=== PATIENT | female | born 1950 | race Caucasian/White ===

== ENCOUNTER 2016-12-03 06:55 | Day surgery (SDC) | payer OTHER ==
[2016-12-01 13:36] VITALS: BMI 46.3
[2016-12-03] MEDS ORDERED: ROPIVACAINE HCL 0.5% 30ML VIAL ONE (07:21)
[2016-12-03] MEDS ORDERED: MIDAZOLAM HCL 2 MG/2 ML SINGLE DOSE VIAL ONE ×3 (07:23→09:08)
--- NOTE | 2016-12-03 08:24 | HP ---
Satellite [facility] - Chief Complaint Chief Complaint: right shoulder pain - Past Medical History Allergies/Adverse Reactions: Allergies Allergy/AdvReac Type Severity Reaction Status Date / Time Cephalosporins Allergy Verified 12/01/16 13:36 clindamycin Allergy Verified 12/01/16 13:36 lithium Allergy Verified 12/01/16 13:36 Penicillins Allergy Verified 12/01/16 13:36 Sulfa (Sulfonamide Allergy Verified 12/01/16 13:36 Antibiotics) SEAFOOD Allergy Uncoded 12/01/16 13:36 - Current Medications Current Medications: Home Medications Medication Instructions Recorded Amlodipine Besylate 5 mg PO DAILY 09/28/15 Clonazepam 1 mg PO TID 09/28/15 Docusate Sodium [Colace -] 400 mg PO HS 09/28/15 Duloxetine HCl [Cymbalta] 120 mg PO DAILY 09/28/15 Multivitamins [Tab-A-Vit -] 1 tab PO DAILY 09/28/15 Naproxen [Naprosyn -] 550 mg PO BID 09/28/15 Olanzapine [Zyprexa] 10 mg PO HS 09/28/15 Omeprazole [Prilosec] 40 mg PO DAILY 09/28/15 Pravastatin Sodium [Pravachol (Nf)] 20 mg PO DAILY 09/28/15 Sennosides [Senna] 4 tab PO BID 09/28/15 Solifenacin Succinate [Vesicare] 10 mg PO DAILY 09/28/15 Diphenhydramine [Benadryl -] 50 mg PO HS PRN 12/01/16 Gluc Tucker/Chondro Tucker A/Vit C/Mn 1 each PO BID 12/01/16 [Glucosamine-Chondroitin Caps] Oxycodone HCl/Acetaminophen 1 each PO Q4H PRN 12/01/16 [Percocet 10-325 mg Tablet] Satellite Physical Exam - Physical Examination Vital Signs: Vital Signs Period Temp Pulse Resp BP Sys/Lane Pulse Ox Last 24 Hr 98.5 F 85 18 123/75 96 General Appearance: Well Nourished, Well Developed, Alert & Oriented x3 ENT: Clear Lung: Normal air movement Heart: Regular rate & rhythm Extremities: Other (right shoulder- + ttp, decr rom, + neer, + klein, + empty can, nvi MRI + high grade partial rct) Neurological: Intact, Alert, Oriented Satellite Impression/Plan - Impression/Plan Impression: right shoulder rct Operative Procedure: right shoulder arthroscopy with SAD, possible RCR Date to be Performed: 12/03/16
[2016-12-03] MEDS ORDERED: KETOROLAC TROMETHAMINE 30 MG/1 ML VIAL ONE (09:08)
[2016-12-03] MEDS ORDERED: DEXAMETHASONE SOD PHOSPHATE 4 MG/1 ML VIAL ONE (09:08)
[2016-12-03] MEDS ORDERED: PROPOFOL 20 ML ONE (09:08)
[2016-12-03] MEDS ORDERED: ROCURONIUM BROMIDE 50 MG/5 ML VIAL ONE (09:08)
[2016-12-03] MEDS ORDERED: oxyCODONE HCL 5 MG TABLET PO PRN (09:09)
[2016-12-03] MEDS ORDERED: ONDANSETRON 4 MG/2 ML VIAL IVPUSH PRN (09:09)
[2016-12-03] MEDS ORDERED: LACTATED RINGERS SOLUTION 1,000 ML IV SCH (09:15)
[2016-12-03] MEDS ORDERED: VANCOMYCIN 1,000 MG VIAL (RESTRICTED TO ID ONLY) IVPB ONE (09:24)
[2016-12-03] MEDS ORDERED: VANCOMYCIN 1,000 MG VIAL (RESTRICTED TO ID ONLY) ONE (09:30)
--- NOTE | 2016-12-03 10:37 | OP ---
Operative Note - Note: Operative Date: 12/03/16 ([facility]) Pre-Operative Diagnosis: right shoulder rct Operation: right shoulder arthroscopy RCR, SAD, extensive debridement of bone and soft tissue Implants: 2 swivelocks Post-Operative Diagnosis: Same as Pre-op Surgeon: Kirt Ruano Digital Media Producer: [place] Anesthesiologist/OCEANOGRAPHER ASSISTANT: Dominick Hess Jr. Anesthesia: General, Local Specimens Removed: shavings Estimated Blood Loss (mls): 5 Operative Report Dictated: Yes
[2016-12-03 13:30] VITALS: TEMP 97.8
[2016-12-03 15:02] VITALS: BP 132/72; PULSE 96
--- NOTE | 2016-12-03 19:24 | OP ---
DATE OF OPERATION: 12/03/2016 PREOPERATIVE DIAGNOSIS: Right rotator cuff tear. POSTOPERATIVE DIAGNOSIS: Right rotator cuff tear. PROCEDURE: Arthroscopy right shoulder with subacromial debridement, bone and soft tissue, and arthroscopic rotator cuff repair. SURGICAL ATTENDING: Kirt Ruano M.D. HOUSEHOLD APPLIANCES SERVICE TECHNICIAN: Gillian Arana ANESTHESIA: Regional and general. CLOSURE: Two fiber tapes and 2 swivel locks for rotator cuff, 3-0 nylon for skin. ESTIMATED BLOOD LOSS: Negligible. COMPLICATIONS: None. CONDITION: To recovery room in stable condition. DESCRIPTION OF PROCEDURE: Patient was taken to the operating room on December 03, 2016. Regional anesthesia followed by general anesthesia was administered by the anesthesiologist. IV vancomycin was administered prophylactically prior to the case. This patient is allergic to multiple antibiotics. The patient was placed in the beach chair position with all prominences well padded. The right shoulder area was prepped and draped in the usual sterile fashion. First a diagnostic arthroscopy of the glenohumeral joint was performed. The posterior portal was made 2 fingerbreadths below the acromion, first with a number 15 blade followed by a blunt trocar. The exam revealed intact glenoid and humeral head articular cartilage, intact labrum, circumferentially intact biceps and biceps anchor. Intact subscapularis to its insertion. No loose bodies in the axillary pouch. Looking superiorly, the rotator cuff was found to have a crescent tear that was almost completely full thickness. This area was marked. The fluid was drained, the trocar was removed. The posterior trocar was redirected in the subacromial space and accessory lateral ports were made with blunt trocar. A bursectomy was performed using device and a shaver a ball on the undersurface of the acromion until it was debrided up to an appropriate level. The coracoacromial ligament was identified and detached once the anterior acromion was visualized and dropped inferiorly, was further debrided. Looking inferiorly to rotator cuff, the marked spot with the suture was found. This showed that the rotator cuff was torn over 95% of its thickness. This area was debrided, completing the tear. was debrided using the shaver and the Arthrocare. Two horizontal mattress sutures were placed on the rotator cuff using a 5-0 tape suture and using Scorpion suture passer. They were individually placed through 2 swivel lock anchors on the more lateral aspect of the greater tuberosity, reducing the rotator cuff to the greater tuberosity, giving an excellent repair. Sutures were cut flush with the bone. Range of motion revealed good stability of the repair and good space in the subacromial region. The fluid was drained. Trocars were closed using 3-0 nylon. Sterile pressure dressing followed by shoulder immobilizer was applied. The patient was awoken from anesthesia and transferred to the recovery room in stable condition. No complications. Estimated blood loss negligible. Maddison [id number]
--- NOTE | 2016-12-04 13:49 | PATH ---
Surgical Pathology Report Patient Name: YENNY AMOR [facility]. Rec. #: [id number] /Age/Gender: 1950 (Age: 66) / F Account: [id number] Location: [facility] SURGICAL Taken: 12/03/2016 Received: 12/03/2016 Reported: 12/04/2016 Physicians: Kirt Ruano M.D. Specimen(s) Received SHAVINGS RIGHT SHOULDER Clinical History Right rotator cuff tear, impingement syndrome right shoulder Final Diagnosis SOFT TISSUE, RIGHT SHOULDER, ARTHROSCOPIC SHAVINGS: SYNOVIUM AND FIBROCARTILAGE WITH MYXOHYALINE DEGENERATION. FRAGMENTS OF UNREMARKABLE BONE AND SKELETAL MUSCLE. Electronically Signed Luc Koenig M.D. Gross Description Received in formalin, labeled "right shoulder shavings" is a 4.5 x 3.3 x 0.3 cm aggregate of guzman-yellow soft tissue fragments. A quality control representative portion is submitted in one cassette. 12/03/201612/03/2016
== END 2016-12-03 14:35 | disposition home or self-care (01) ==
LOC: JASU-SURG 06:55
PROVIDERS: ATTEND Orthopaedic Surgery
PROC: 0RBJ4ZZ Excision of Right Shoulder Joint, Percutaneous Endoscopic Approach (ICD-10-PCS; 2016-12-03)
PROC: 0RNJ4ZZ Release Right Shoulder Joint, Percutaneous Endoscopic Approach (ICD-10-PCS; principal; 2016-12-03 08:45)
PROC: 0LM14ZZ Reattachment of Right Shoulder Tendon, Percutaneous Endoscopic Approach (ICD-10-PCS; 2016-12-03 08:45)
DX: M75.101 Unspecified rotator cuff tear or rupture of right shoulder, not specified as traumatic (principal)
CPT/HCPCS: 88304-TC; 94760

== ENCOUNTER 2017-07-20 19:19 | Emergency (ER) | payer OTHER ==
[2017-07-20 19:35] VITALS: BP 144/89; PULSE 85; TEMP 98.2; BMI 46.1
[2017-07-20] MEDS ORDERED: KETOROLAC TROMETHAMINE 60 MG/2 ML VIAL ONE (20:20)
[2017-07-20] MEDS ORDERED: KETOROLAC TROMETHAMINE 60 MG/2 ML VIAL IM ONE (20:20)
--- NOTE | 2017-07-20 20:20 | PDOC ---
History of Present Illness - History of Present Illness Initial Comments: 07/20/17 20:24 The patient is a 67 year old female, with a significant past medical history of hypertension, hyperlipidemia, bipolar disorder, urinary incontinence, osteoarthritis, and spinal stenosis who presents to the emergency department brought in by ambulance from home with increased back pain for 1 day. The patient states she thinks she turned the wrong way in her sleep. The patient also reports left buttock pain. She denies pain, numbness or tingling to her lower extremities. She denies trauma. She reports taking oxycodone and naproxen earlier today without relief of pain. She denies chest pain, shortness of breath, headache and dizziness. She denies fever, chills, nausea, vomit, diarrhea and constipation. She denies dysuria, frequency, urgency and hematuria. Allergies: see nursing notes Past surgical history: right RCR (Nov 2016), right bunion, Social history: Pt denies toxic habits PCP - Dr. Jai Chopra <Alexandra Nava - Last Filed: 07/20/17 20:42> <Chloe Pires - Last Filed: 07/20/17 22:43> - General Chief Complaint: Back Pain Stated Complaint: BACK PAIN Time Seen by Provider: 07/20/17 19:24 Past History <Alexandra Nava - Last Filed: 07/20/17 20:42> - Past Medical History Anemia: Yes Asthma: No Cancer: No Cardiac Disorders: No CVA: No COPD: No CHF: No Dementia: No Diabetes: No GI Disorders: Yes (reflux) Disorders: Yes (kidney stones;urge incontinence) HTN: Yes Hypercholesterolemia: Yes Liver Disease: No Seizures: No Thyroid Disease: No - Surgical History Abdominal Surgery: Yes (hernia) Appendectomy: Yes Cardiac Surgery: No Lung Surgery: No Neurologic Surgery: No Orthopedic Surgery: Yes (arthroscopy knee - bilat x 2) - Suicide/Smoking/Psychosocial Hx Smoking History: Never smoked Have you smoked in the past 12 months: No Information on smoking cessation initiated: No Hx Alcohol Use: No Drug/Substance Use Hx: No Substance Use Type: None <Chloe Pires - Last Filed: 07/20/17 22:43> - Past Medical History Allergies/Adverse Reactions: Allergies Allergy/AdvReac Type Severity Reaction Status Date / Time Cephalosporins Allergy Verified 07/20/17 19:32 clindamycin Allergy Verified 07/20/17 19:32 lithium Allergy Verified 07/20/17 19:32 Penicillins Allergy Verified 07/20/17 19:32 Sulfa (Sulfonamide Allergy Verified 07/20/17 19:32 Antibiotics) SEAFOOD Allergy Uncoded 07/20/17 19:32 Home Medications: Ambulatory Orders Amlodipine Besylate 5 mg PO DAILY 09/28/15 Clonazepam 1 mg PO TID 09/28/15 Docusate Sodium [Colace -] 400 mg PO HS 09/28/15 Duloxetine HCl [Cymbalta] 120 mg PO DAILY 09/28/15 Multivitamins [Multivit ([facility] Formulary)] 1 tab PO DAILY 09/28/15 Naproxen [Naprosyn -] 550 mg PO BID 09/28/15 Olanzapine [Zyprexa] 10 mg PO HS 09/28/15 Omeprazole [Prilosec] 40 mg PO DAILY 09/28/15 Pravastatin Sodium [Pravachol -] 20 mg PO DAILY 09/28/15 Sennosides [Senna -] 4 tab PO BID 09/28/15 Solifenacin Succinate [Vesicare] 10 mg PO DAILY 09/28/15 Gluc Tucker/Chondro Tucker A/Vit C/Mn [Glucosamine-Chondroitin Caps] 1 each PO BID 12/01 Oxycodone HCl/Acetaminophen [Percocet 10-325 mg Tablet] 1 each PO Q4H PRN #50 tablet MDD 6 12/03/16 Review of Systems - Review of Systems Able to Perform ROS?: Yes Comments:: 07/20/17 20:24 CONSTITUTIONAL: Absent: fever, no chills, no fatigue EYES: Absent: visual changes ENT: Absent: ear pain, no sore throat CARDIOVASCULAR: Absent: chest pain, no palpitations RESPIRATORY: Absent: cough, no SOB GI: Absent: abdominal pain, no nausea, no vomiting, no constipation, no diarrhea GENITOURINARY: Absent: dysuria, no frequency, no hematuria MUSCULOSKELETAL: (+) myalgia, right lower back pain, and left buttock pain. Absent: no arthralgia , SKIN: Absent: rash NEURO: Absent: headache <Alexandra Nava - Last Filed: 07/20/17 20:42> *Physical Exam - Vital Signs Last Vital Signs Temp Pulse Resp BP Pulse Ox 98.2 F 85 14 144/89 99 07/20/17 19:32 07/20/17 19:32 07/20/17 19:32 07/20/17 19:32 07/20/17 20:12 - Physical Exam Comments: 07/20/17 20:25 GENERAL: (+) obese. Well-appearing, No apparent distress. HEENT: Normocephalic, atraumatic. PERRL, EOM intact. CARDIOVASCULAR: Normal S1, S2. Regular rate and rhythm. No bruits. PULMONARY: Clear to auscultation bilaterally. ABDOMEN: Protuberant. Soft, non-distended, non-tender. EXTREMITIES: (+) bilateral pedal edema. Normal ROM in all four extremities. No gross deformities. MUSCULOSKELETAL: (+) pain and tenderness to the right of L5S1 SKIN: Warm, dry. No rash NEUROLOGICAL: No focal neurological deficits. <Alexandra Nava - Last Filed: 07/20/17 20:42> - Vital Signs Last Vital Signs Temp Pulse Resp BP Pulse Ox 98.2 F 85 14 144/89 99 07/20/17 19:32 07/20/17 19:32 07/20/17 19:32 07/20/17 19:32 07/20/17 20:12 <Chloe Pires - Last Filed: 07/20/17 22:43> ED Treatment Course - Medications Given in the ED: ED Medications Discontinued Medications Generic Name Dose Route Start Last Admin Trade Name Freq PRN Reason Stop Dose Admin Oxycodone/Acetaminophen 1 combo 07/20/17 19:52 07/20/17 20:18 Percocet 5/325 - PO 07/20/17 19:53 1 combo ONCE ONE Administration <Alexandra Nava - Last Filed: 07/20/17 20:42> - Medications Given in the ED: ED Medications Discontinued Medications Generic Name Dose Route Start Last Admin Trade Name Freq PRN Reason Stop Dose Admin Oxycodone/Acetaminophen 1 combo 07/20/17 19:52 07/20/17 20:18 Percocet 5/325 - PO 07/20/17 19:53 1 combo ONCE ONE Administration <Chloe Pires - Last Filed: 07/20/17 22:43> Medical Decision Making - Medical Decision Making 07/20/17 20:52 67 yo female BBIA from home for back pain -no recent trauma -denies any new fecal or urinary incontinence(has h/o stress incontinence only) ,no saddle anesthesia or new extremity weakness,no numbness She has PMH of spinal stenosis and arthritis ,is follwed by Dr Ruano (ortho) who gives her "injections" 07/20/17 20:53 07/20/17 22:41 pt is now ambulating and feels better -plan pt will follow up with her physician this week <Chloe Pires - Last Filed: 07/20/17 22:43> *DC/Admit/Observation/Transfer - Attestations Scribe Attestion: 07/20/17 20:27 Documentation prepared by Alexandra Nava, acting as medical imaging technician for Chloe Pires MD <Alexandra Nava - Last Filed: 07/20/17 20:42> <Chloe Pires - Last Filed: 07/20/17 22:43> Diagnosis at time of Disposition: Back pain Qualifiers: Back pain location: low back pain Chronicity: chronic Back pain laterality: right Sciatica presence: with sciatica Sciatica laterality: sciatica of right side Qualified Code(s): M54.41 - Lumbago with sciatica, right side; M54.41 - Lumbago with sciatica, right side; G89.29 - Other chronic pain; G89.29 - Other chronic pain - Discharge Dispostion Disposition: HOME Condition at time of disposition: Stable - Referrals Referrals: Jai Chopra MD [Primary Care Provider] - - Patient Instructions Printed Discharge Instructions: DI for Low Back Pain Additional Instructions: please follow up with your orthopedist support assistant your medications at your pharmacy
[2017-07-20] MEDS ORDERED: diazePAM 5 MG TABLET PO ONE (20:21)
[2017-07-20] MEDS ORDERED: diazePAM 5 MG TABLET ONE (20:21)
== END 2017-07-20 23:17 | disposition home or self-care (01) ==
LOC: JER 19:19
PROC: 3E0233Z Introduction of Anti-inflammatory into Muscle, Percutaneous Approach (ICD-10-PCS; principal; 2017-07-20)
DX: G89.29 Other chronic pain (principal); M54.41 Lumbago with sciatica, right side; I10 Essential (primary) hypertension; D64.9 Anemia, unspecified; K21.9 Gastro-esophageal reflux disease without esophagitis
CPT/HCPCS: 99283-25

== ENCOUNTER 2018-03-01 08:41 | Day surgery (SDC) | payer OTHER ==
[2018-02-25 13:03] VITALS: BMI 47.9
[2018-03-01] MEDS ORDERED: LIDOCAINE HCL 2% JELLY 10 ML CARTRIDGE ONE (09:51)
[2018-03-01] MEDS ORDERED: MIDAZOLAM HCL 2 MG/2 ML SINGLE DOSE VIAL ONE (10:55)
[2018-03-01] MEDS ORDERED: PROPOFOL 20 ML ONE (10:55)
[2018-03-01] MEDS ORDERED: LIDOCAINE HCL 2% JELLY 10 ML CARTRIDGE TP ONE (12:01)
[2018-03-01] MEDS ORDERED: DEXAMETHASONE SOD PHOSPHATE 4 MG/1 ML VIAL ONE (12:08)
--- NOTE | 2018-03-01 12:32 | OP ---
Operative Note - Note: Operative Date: 03/01/18 Pre-Operative Diagnosis: urethral stricture Operation: cystoscopy/urethral dilation Findings: moderate urethral stricture Post-Operative Diagnosis: Same as Pre-op Surgeon: Leeroy Padilla Anesthesia: General
[2018-03-01] MEDS ORDERED: ONDANSETRON 4 MG/2 ML VIAL IVPUSH PRN (12:34)
[2018-03-01] MEDS ORDERED: ACETAMINOPHEN 325 MG TABLET (FP) PO PRN (12:34)
[2018-03-01] MEDS ORDERED: LACTATED RINGERS SOLUTION 1,000 ML IV SCH (12:45)
[2018-03-01 15:41] VITALS: BP 138/78; PULSE 80; TEMP 97.8
--- NOTE | 2018-03-01 19:53 | OP ---
DATE OF OPERATION: 03/01/2018 PREOPERATIVE DIAGNOSIS: Urethral stricture. POSTOPERATIVE DIAGNOSIS: Urethral stricture. PROCEDURE: Cystoscopy and urethral dilation. ATTENDING: Andrew Padilla M.D. ANESTHESIA: General. DESCRIPTION OF PROCEDURE: The patient was brought in the operating room, placed in supine position on operating table. General anesthesia and preoperative antibiotics were administered. The patient was then placed in the dorsal lithotomy position. Dilation was performed to 26 Swedish. The stricture dilated well. At this point, a rigid cystoscope was utilized, and cystoscopy was performed. No evidence of neoplasm or stones was noted within the bladder. 1 to 2 plus bladder trabeculation was noted. The patient tolerated the procedure very well. No Diaz was left in place. ANDREW AUGUSTINE M.D. 1 [id number]
== END 2018-03-01 15:20 | disposition home or self-care (01) ==
LOC: JASU-SURG 08:41
PROVIDERS: ATTEND Urology
PROC: 0T7D8ZZ Dilation of Urethra, Via Natural or Artificial Opening Endoscopic (ICD-10-PCS; principal; 2018-03-01 10:00)
DX: N35.9 Urethral stricture, unspecified (principal)
CPT/HCPCS: 94760

== ENCOUNTER 2018-03-17 08:38 | Emergency (ER) | payer OTHER ==
[2018-03-17 08:53] VITALS: BP 160/98; PULSE 76; TEMP 97.4; BMI 47.7
--- NOTE | 2018-03-17 09:51 | PDOC ---
*Physical Exam - Vital Signs Last Vital Signs Temp Pulse Resp BP Pulse Ox 97.4 F L 76 16 160/98 99 03/17/18 08:49 03/17/18 08:49 03/17/18 08:49 03/17/18 08:49 03/17/18 08:49 Medical Decision Making - Medical Decision Making 03/17/18 09:51 Pt seen by Midlevel Provider under my direct supervision Pt interviewed and examined Ancillary studies reviewed I agree with plan as outlined by Midlevel Provider *DC/Admit/Observation/Transfer Diagnosis at time of Disposition: Knee buckling, Fall, Head injury - Discharge Dispostion Disposition: HOME Condition at time of disposition: Good - Prescriptions Prescriptions: Tramadol HCl 50 mg PO TID #20 tablet MDD 4 - Referrals Referrals: Jai Chopra MD [Primary Care Provider] - Call tomorrow - Patient Instructions Printed Discharge Instructions: How To Perform RICE (Rest, Ice, Compress, Elevate), How to Prevent Falls, DI for Closed Head Injury Additional Instructions: Discharge instructions: -The cat scan of your head and face show no acute broken bones or bleeding -You have osteoarthritis in your knees -Please apply ice to your knees, wrist and face to help with swelling and pain -A prescription for pain medication has been sent to your pharmacy; it may cause drowsiness -Please follow up with your doctor within 1 week -return to the ER with any worsening or concerning symptoms - Post Discharge Activity
--- NOTE | 2018-03-17 09:57 | PDOC ---
History of Present Illness - General Chief Complaint: Injury Stated Complaint: SLIP, FALL Time Seen by Provider: 03/17/18 09:47 History Source: Patient Exam Limitations: No Limitations - History of Present Illness Initial Comments: CHIEF COMPLAINT: 67 y/o afebrile female with PMH HTN, HLD, osteoarthritis of b/ l knees, incontinence here after fall at home with facial trauma. HISTORY OF PRESENT ILLNESS: the patient states she was incontinent last night and was changing the sheet on her bed when her knees gave out on her. She fell to the floor, first hitting her knees and then hitting her face on the floor. She states this has happened before. she currently has a headache, nose pain, left wrist pain and b/l knee pain. She denies CP, palpitations or dizziness prior to the fall. She denies LOC, neck pain, n/v/d, numbness/tingling in extremities. Vital signs on arrival are within normal limits. REVIEW OF SYSTEMS: GENERAL/CONSTITUTIONAL: no fever/chills. No weakness. No weight change. HEAD, EYES, EARS, NOSE AND THROAT: +nose pain. No change in vision. No ear pain or discharge. No sore throat. CARDIOVASCULAR: No chest pain or shortness of breath. RESPIRATORY: No cough, wheezing, or hemoptysis. GASTROINTESTINAL: No abd pain, nausea, vomiting, diarrhea. GENITOURINARY: No dysuria, frequency, or change in urination. MUSCULOSKELETAL: +b/l knee pain. No neck or back pain. SKIN: No rash or easy bruising. NEUROLOGIC: +headache. No vertigo, loss of consciousness, or loss of sensation. PHYSICAL EXAM: GENERAL: The patient is awake, alert, and fully oriented, in no acute distress. HEAD: No hematomas to head. NECK: No midline cervical spine TTP or step offs. ENT: PERRLA. Edema and ecchymosis to nose with TTP of bridge of nose. Dried blood in left nare without septal hematoma. Multiple abrasions to nose and forehead. No pain with EOMs. No raccoon eyes. LUNGS: Clear to auscultation bilaterally. Normal excursion. No respiratory distress or use of accessory muscles. CV: RRR, S1/S2, no MRG. Cap refill < 2 sec. ABDOMEN: Soft, non-distended, non-tender even to deep palpation, no hepatomegaly or splenomegaly, no masses. EXTREMITIES: Bruising and TTP of b/l knees. Pain extension of left wrist without snuffbox TTP, swelling or erythema NEUROLOGICAL: Normal speech, normal gait. CN II-XII grossly intact. PSYCH: Normal mood, normal affect. SKIN: Warm, dry, normal turgor, no rashes or lesions noted. Past History - Past Medical History Allergies/Adverse Reactions: Allergies Allergy/AdvReac Type Severity Reaction Status Date / Time Cephalosporins Allergy Verified 03/17/18 08:47 clindamycin Allergy Verified 03/17/18 08:47 lithium Allergy Verified 03/17/18 08:47 Penicillins Allergy Swelling Verified 03/17/18 08:47 Sulfa (Sulfonamide Allergy Verified 03/17/18 08:47 Antibiotics) SEAFOOD Allergy Uncoded 03/17/18 08:47 Home Medications: Ambulatory Orders Amlodipine Besylate 5 mg PO DAILY 09/28/15 Docusate Sodium [Colace -] 400 mg PO HS 09/28/15 Duloxetine HCl [Cymbalta] 120 mg PO DAILY 09/28/15 Multivitamins [Multivit ([facility] Formulary)] 1 tab PO DAILY 09/28/15 Olanzapine [Zyprexa] 10 mg PO HS 09/28/15 Omeprazole [Prilosec] 40 mg PO DAILY 09/28/15 Pravastatin Sodium [Pravachol -] 20 mg PO DAILY 09/28/15 Sennosides [Senna -] 4 tab PO BID 09/28/15 Gluc Tucker/Chondro Tucker A/Vit C/Mn [Glucosamine-Chondroitin Caps] 1 each PO BID 12/01 Clonazepam [Klonopin] 1 mg PO QID 03/01/18 Anemia: Yes Asthma: No Cancer: No Cardiac Disorders: No CVA: No COPD: No CHF: No Dementia: No Diabetes: No GI Disorders: Yes (reflux) Disorders: Yes (kidney stones;urge incontinence) HTN: Yes Hypercholesterolemia: Yes Liver Disease: No Psychiatric Problems: (bipolar) Seizures: No Thyroid Disease: No - Surgical History Abdominal Surgery: Yes (hernia) Appendectomy: Yes Cardiac Surgery: No Lung Surgery: No Neurologic Surgery: No Orthopedic Surgery: Yes (arthroscopy knee - bilat x 2) - Suicide/Smoking/Psychosocial Hx Smoking History: Never smoked Have you smoked in the past 12 months: No Hx Alcohol Use: No Drug/Substance Use Hx: No Substance Use Type: None *Physical Exam - Vital Signs Last Vital Signs Temp Pulse Resp BP Pulse Ox 97.4 F L 76 16 160/98 99 03/17/18 08:49 03/17/18 08:49 03/17/18 08:49 03/17/18 08:49 03/17/18 08:49 Medical Decision Making - Medical Decision Making A/P: 67 y/o female with fall after both knees gave out on her. The patient admits she is bone on bone in both knees and this has happened before. Plan is as follows: 1. Head CT 2. Facial bones CT 3. Xray b/l knees 4. Xray left wrist 5. PO percocet Head CT/Facial bones CT IMPRESSION: Likely slightly depressed chronic nasal tip fracture without overlying soft issue swelling. No gross acute fracture is identified. Both orbits appear intact. No periorbital soft tissue swelling is identified. Both eye globes are intact. No evidence of focal intracranial lesion or hemorrhage seen. Xray b/l knees IMPRESSION: osteoarthritis Xray left wrist IMPRESSION: No acute pathology. Gave the patient all of her results. Suggested ice to her face, knees and wrist. Will send rx for tramadol. Suggested f/u with her doctor and return to the ER with any worsening or concerning symptoms. The patient verbalizes understanding of all instructions, has no further questions and is awaiting discharge. *DC/Admit/Observation/Transfer Diagnosis at time of Disposition: Knee buckling Qualifiers: Laterality: unspecified laterality Qualified Code(s): M25.369 - Other instability, unspecified knee Fall Qualifiers: Encounter type: initial encounter Qualified Code(s): W19.XXXA - Unspecified fall, initial encounter Head injury Qualifiers: Encounter type: initial encounter Qualified Code(s): S09.90XA - Unspecified injury of head, initial encounter - Discharge Dispostion Disposition: HOME Condition at time of disposition: Good - Referrals Referrals: Jai Chopra MD [Primary Care Provider] - Call tomorrow - Patient Instructions Printed Discharge Instructions: DI for Closed Head Injury, How to Prevent Falls , How To Perform RICE (Rest, Ice, Compress, Elevate) Additional Instructions: Discharge instructions: -The cat scan of your head and face show no acute broken bones or bleeding -You have osteoarthritis in your knees -Please apply ice to your knees, wrist and face to help with swelling and pain -A prescription for pain medication has been sent to your pharmacy; it may cause drowsiness -Please follow up with your doctor within 1 week -return to the ER with any worsening or concerning symptoms - Post Discharge Activity
== END 2018-03-17 15:10 | disposition home or self-care (01) ==
LOC: JER 08:38
DX: M25.369 Other instability, unspecified knee (principal); S09.90XA Unspecified injury of head, initial encounter; W18.39XA Other fall on same level, initial encounter; Y93.89 Activity, other specified; Y92.003 Bedroom of unspecified non-institutional (private) residence as the place of occurrence of the external cause; F31.9 Bipolar disorder, unspecified; K21.9 Gastro-esophageal reflux disease without esophagitis; I10 Essential (primary) hypertension; E78.00 Pure hypercholesterolemia, unspecified
CPT/HCPCS: 70450-TC; 70486-TC; 73110-TC-LR-FY; 73130-TC-LR-FY; 73560-TC-LT-FY; 73560-TC-RT-FY; 99282-25

== ENCOUNTER 2018-04-04 12:08 | Observation (INO) | payer OTHER ==
[2018-04-04] MEDS ORDERED: SODIUM CHLORIDE 0.9% 1000 ML INFUS.BAG IV ONE (12:39)
[2018-04-04] MEDS ORDERED: MECLIZINE HCL 25 MG TABLET (FP) PO ONE (12:39)
--- NOTE | 2018-04-04 12:39 | PDOC ---
History of Present Illness - General History Source: Patient Exam Limitations: No Limitations - History of Present Illness Initial Comments: 04/04/18 13:42 The patient is a 67 year old female with a significant past medical history of osteoarthritis, hypertension, hyperlipidemia, bipolar disorder, IBS, spinal stenosis, vertigo, and urinary incontinence who presents to the emergency department for evaluation of lightheadedness. The patient reports feeling dizzy (room spinning) sitting up in bed after waking up this morning. She states she went to the bathroom afterwards and her dizziness returned requiring her to sit back down. She notes her dizziness was exacerbated after turning towards the right while in bed. The patient reports a history of dizziness, but notes it was not as severe as today which prompted her to visit the emergency department for further evaluation. The patient reports an associated symptom of moderate frontal headache.She states she felt fine and at baseline yesterday. Of note, the patient reports she fell on her knees and hit her head 2.5 weeks ago. The patient denies chest pain, shortness of breath, fever, chills, nausea, vomiting, diarrhea, and constipation. Allergies: Cephalosporins, clindamycin, lithium, penicillins, sulfonamide antibiotics, seafood Social History: No reported alcohol, cigarette, or drug use. Surgical History: Arthroscopy knee bilaterally, abdominal hernia repair, appendectomy. <Neil Lyles - Last Filed: 04/04/18 14:06> <Yong Reinoso - Last Filed: 04/04/18 15:33> - General Chief Complaint: Lightheaded Stated Complaint: DIZZINESS AND HEADHACHE Time Seen by Provider: 04/04/18 12:30 Past History <Neil Lyles - Last Filed: 04/04/18 14:06> - Past Medical History Anemia: Yes Asthma: No Cancer: No Cardiac Disorders: No CVA: No COPD: No CHF: No Dementia: No Diabetes: No GI Disorders: Yes (reflux) Disorders: Yes (kidney stones;urge incontinence) HTN: Yes Hypercholesterolemia: Yes Liver Disease: No Psychiatric Problems: (bipolar) Seizures: No Thyroid Disease: No - Surgical History Abdominal Surgery: Yes (hernia) Appendectomy: Yes Cardiac Surgery: No Lung Surgery: No Neurologic Surgery: No Orthopedic Surgery: Yes (arthroscopy knee - bilat x 2) - Suicide/Smoking/Psychosocial Hx Smoking History: Never smoked Have you smoked in the past 12 months: No Hx Alcohol Use: No Drug/Substance Use Hx: No Substance Use Type: None <Yong Reinoso - Last Filed: 04/04/18 15:33> - Past Medical History Allergies/Adverse Reactions: Allergies Allergy/AdvReac Type Severity Reaction Status Date / Time Cephalosporins Allergy Verified 03/17/18 08:47 clindamycin Allergy Verified 03/17/18 08:47 lithium Allergy Verified 03/17/18 08:47 Penicillins Allergy Swelling Verified 03/17/18 08:47 Sulfa (Sulfonamide Allergy Verified 03/17/18 08:47 Antibiotics) SEAFOOD Allergy Uncoded 03/17/18 08:47 Home Medications: Ambulatory Orders Amlodipine Besylate 5 mg PO DAILY 09/28/15 Docusate Sodium [Colace -] 400 mg PO HS 09/28/15 Duloxetine HCl [Cymbalta] 120 mg PO DAILY 09/28/15 Multivitamins [Multivit ([facility] Formulary)] 1 tab PO DAILY 09/28/15 Olanzapine [Zyprexa] 12.5 mg PO HS 09/28/15 Omeprazole [Prilosec] 40 mg PO DAILY 09/28/15 Pravastatin Sodium [Pravachol -] 20 mg PO HS 09/28/15 Sennosides [Senna -] 4 tab PO BID 09/28/15 Gluc Tucker/Chondro Tucker A/Vit C/Mn [Glucosamine-Chondroitin Caps] 1 each PO BID 12/01 Clonazepam [Klonopin] 1 mg PO QID 03/01/18 Chrom Renan/Brindal Hess [Garcinia Cambogia Tablet] 1 each PO TID 04/04/18 Mirabegron [Myrbetriq] 50 mg PO DAILY 04/04/18 Naproxen Sodium 550 mg PO BID 04/04/18 Review of Systems - Review of Systems Able to Perform ROS?: Yes Comments:: A complete review of 10 out of 10 review of systems is taken and is negative apart from what is previously mentioned below and in the HPI. <Neil Lyles - Last Filed: 04/04/18 14:06> *Physical Exam - Vital Signs Last Vital Signs Temp Pulse Resp BP Pulse Ox 98 F 89 20 162/76 94 L 04/04/18 12:10 04/04/18 12:10 04/04/18 12:10 04/04/18 12:10 04/04/18 12:10 - Physical Exam Comments: Vitals: Triage Vital signs reviewed General Appearance: no acute distress, well nourished well developed, Head: Atraumatic, normocephalic Eyes: Pupils equal reactive round, extraocular movement intact Neck: Supple Chest Wall: Nontender Cardiac: Regular rate and rhythm, no murmurs, no rubs, no gallops, Lungs: Clear to auscultation bilateral, good air movement bilaterally, Abdomen: Soft, nondistended, nontender to palpation Extremities: Full range of motion to all extremities, no cyanosis, clubbing, or edema Skin: Warm and dry, no rashes or lesions, no petechiae Neuro: (+)jennifer-hallpike. AOX3; Cranial Nerves 2-12 grossly c intact, Strength intact to all extremities, Sensation intact to all extremities. Psych: normal mood, normal affect. <Neil Lyles - Last Filed: 04/04/18 14:06> Heart Score/ECG Review - ECG Impressions Comment:: 04/04/18 15:31 EKG performed at 1302. Demonstrated sinus rhythm no ST elevations or T-wave inversions. Normal 156. QRS 84. QTC 454. No evidence of WPW, Brugada, prolonged PT Interpreted by me. <Yong Reinoso - Last Filed: 04/04/18 15:33> ED Treatment Course - LABORATORY CBC & Chemistry Diagram: 04/04/18 14:40 04/04/18 14:40 <Yong Reinoso - Last Filed: 04/04/18 15:33> Medical Decision Making - Medical Decision Making The patient is a 67 year old female with a significant past medical history of osteoarthritis, hypertension, hyperlipidemia, bipolar disorder, IBS, spinal stenosis, vertigo, and urinary incontinence who presents to the emergency department for evaluation of lightheadedness. Plan: ECG Labs Medications Head CT <Neil Lyles - Last Filed: 04/04/18 14:06> - Medical Decision Making Patient with 1 day history of vertigo starting this morning. Symptoms are worse when standing turning to the right patient unable to ambulate unassisted secondary symptomatology Positive Jennifer-Hallpike on neuro examination Given age and risk factors we'll obtain head CT check labs EKG treated with meclizine and Ativan and reassessed Reevaluation 3:20 PM. Patient still unable to walk with steady gait despite medications. Given that patient is a safe discharge home we'll observe overnight for continued fluids meclizine and Ativan. Neurology to be consult and in morning if no improvement in symptomatology to consider additional imaging possibly MRI to rule out central pathology <Yong Reinoso - Last Filed: 04/04/18 15:33> *DC/Admit/Observation/Transfer - Attestations Scribe Attestion: Documentation prepared by Neil Lyles, acting as medical billing specialist for Yong Reinoso MD. <Neil Lyles - Last Filed: 04/04/18 14:06> - Discharge Dispostion Decision to Admit order: Yes <Yong Reinoso - Last Filed: 04/04/18 15:33> Diagnosis at time of Disposition: Vertigo
[2018-04-04] MEDS ORDERED: LORazepam 2 MG/ML SDV VIAL ONE ×2 (13:02→17:15)
[2018-04-04] MEDS ORDERED: MECLIZINE HCL 25 MG TABLET (FP) ONE (13:02)
[2018-04-04 14:50] LABS: BASO % 0.1 % (0-2.0); HEMATOCRIT 43.1 % (32.4-45.2); LYMPH % 18.9 % (8-40); MCH 27.8 pg (25.7-33.7); MCHC 32.4 g/dl (32.0-36.0); MEAN CELL VOLUME 85.7 fl (80-96); MEAN PLT VOLUME 8.6 fl (7.5-11.1); MONO % 8.6 % (3.8-10.2); NEUT % 68.4 % (42.8-82.8); PLATELET COUNT 278 K/MM3 (134-434); RBC 5.03 M/mm3 (3.60-5.2); RDW 15.7 % (11.6-15.6); WHITE BLOOD COUNT 9.2 K/mm3 (4.0-10.0)
[2018-04-04 15:12] LABS: ANION GAP 6 (8-16); BILIRUBIN,TOTAL 0.4 mg/dL (0.2-1.0); BLOOD UREA NITROGEN 16 mg/dL (7-18); CALCIUM 8.9 mg/dL (8.5-10.1); CHLORIDE 106 mmol/L (98-107); CO2 31 mmol/L (21-32); CREATININE 0.6 mg/dL (0.55-1.02); GLUCOSE,RANDOM 113 mg/dL (74-106); POTASSIUM 3.9 mmol/L (3.5-5.1); SGOT/AST 18 U/L (15-37); SGPT/ALT 27 U/L (12-78); SODIUM 143 mmol/L (136-145); TOT PROT 7.1 g/dl (6.4-8.2)
[2018-04-04 15:14] LABS: ALBUMIN 3.8 g/dl (3.4-5.0); ALK PHOS 122 U/L (45-117)
--- NOTE | 2018-04-04 16:52 | PN ---
Teaching Attending Note Name of Resident: Clari Huitron ATTENDING PHYSICIAN STATEMENT I saw and evaluated the patient. I reviewed the resident's note and discussed the case with the resident. I agree with the resident's findings and plan as documented. SUBJECTIVE: Patient is a 67 y/o F with PMHx of OA, HTN, HLD, bipolar disorder, IBS, spinal stenosis, urinary incontinence and BPPV, who presents to the ED c/o episodes of vertigo that started this AM. Patient felt that the whole room is spinning. No fever or chiil, no shortness of breath. OBJECTIVE: Vital Signs Temperature 98 F 04/04/18 12:10 Pulse Rate 89 04/04/18 12:10 Respiratory Rate 20 04/04/18 12:10 Blood Pressure 162/76 04/04/18 12:10 O2 Sat by Pulse Oximetry (%) 94 L 04/04/18 12:10 CBCD WBC 9.2 K/mm3 (4.0-10.0) 04/04/18 14:40 RBC 5.03 M/mm3 (3.60-5.2) 04/04/18 14:40 Hgb 14.0 GM/dL (10.7-15.3) 04/04/18 14:40 Hct 43.1 % (32.4-45.2) 04/04/18 14:40 MCV 85.7 fl (80-96) 04/04/18 14:40 MCHC 32.4 g/dl (32.0-36.0) 04/04/18 14:40 RDW 15.7 % (11.6-15.6) H 04/04/18 14:40 Plt Count 278 K/MM3 (134-434) 04/04/18 14:40 MPV 8.6 fl (7.5-11.1) 04/04/18 14:40 CMP Sodium 143 mmol/L (136-145) 04/04/18 14:40 Potassium 3.9 mmol/L (3.5-5.1) 04/04/18 14:40 Chloride 106 mmol/L (98-107) 04/04/18 14:40 Carbon Dioxide 31 mmol/L (21-32) 04/04/18 14:40 Anion Gap 6 (8-16) L 04/04/18 14:40 BUN 16 mg/dL (7-18) 04/04/18 14:40 Creatinine 0.6 mg/dL (0.55-1.02) 04/04/18 14:40 Creat Clearance w eGFR > 60 (>60) 04/04/18 14:40 Random Glucose 113 mg/dL (74-106) H 04/04/18 14:40 Calcium 8.9 mg/dL (8.5-10.1) 04/04/18 14:40 Total Bilirubin 0.4 mg/dL (0.2-1.0) 04/04/18 14:40 AST 18 U/L (15-37) 04/04/18 14:40 ALT 27 U/L (12-78) 04/04/18 14:40 Alkaline Phosphatase 122 U/L (45-117) H 04/04/18 14:40 Total Protein 7.1 g/dl (6.4-8.2) 04/04/18 14:40 Albumin 3.8 g/dl (3.4-5.0) 04/04/18 14:40 CARDIAC ENZYMES Troponin I < 0.02 ng/ml (0.00-0.05) 04/04/18 14:40 Home Medications Medication Instructions Recorded Amlodipine Besylate 5 mg PO DAILY 09/28/15 Docusate Sodium [Colace -] 400 mg PO HS 09/28/15 Duloxetine HCl [Cymbalta] 120 mg PO DAILY 09/28/15 Multivitamins [Multivit ([facility] 1 tab PO DAILY 09/28/15 Formulary)] Olanzapine [Zyprexa] 12.5 mg PO HS 09/28/15 Omeprazole [Prilosec] 40 mg PO DAILY 09/28/15 Pravastatin Sodium [Pravachol -] 20 mg PO HS 09/28/15 Sennosides [Senna -] 4 tab PO BID 09/28/15 Gluc Tucker/Chondro Tucker A/Vit C/Mn 1 each PO BID 12/01/16 [Glucosamine-Chondroitin Caps] Clonazepam [Klonopin] 1 mg PO QID 03/01/18 Chrom Renan/Brindal Hess [Garcinia 1 each PO TID 04/04/18 Cambogia Tablet] Mirabegron [Myrbetriq] 50 mg PO DAILY 04/04/18 Naproxen Sodium 550 mg PO BID 04/04/18 PE: feels weak and dizzy when stands up. rest of PE as per resident's note Head CT without con: no hemorrhage, mass effect or hydrocephalus EKG: NSR, vent rate 80bpm, [place] 156ms, QTc 454ms. no ST or T wave changes ASSESSMENT/PLAN: Patient is a 67 y/o Female with PMHx OA, HTN, HLD, bipolar disorder, IBS, spinal stenosis, urinary incontinence who presents to the ED c/o having vertigo that started this AM. #Vertigo likely due to BPPV; discussed with dr Wheat; No need for mRI, continue Meclizine for now #HTN- uncontrolled continue amlodipine 5mg PO qd #HLD continue pravachol 20mg PO HS #bipolar disorder continue home meds #IBS with constipation on Senna and colace that she takes at home will continue #urinary incontinence continue home medication #hx of OA hold glucosamine-chrondroitin and naproxen DVT: hep 5000 SQ TID
[2018-04-04] MEDS ORDERED: MECLIZINE HCL 25 MG TABLET (FP) PO PRN (17:28)
--- NOTE | 2018-04-04 17:37 | HP ---
CHIEF COMPLAINT: vertigo PCP: Dr. Chopra HISTORY OF PRESENT ILLNESS: 67 y/o F with PMH OA, HTN, HLD, bipolar disorder, IBS, spinal stenosis, urinary incontinence and BPPV, who presents to the ED c/o episodes of vertigo that started this AM. As per pt, this AM when she woke up, as soon as she sat up, she felt as if the "room was spinning." The episode lasted for 20-30 seconds. Pt lay back down to alleviate her sx, went back to sleep, and sat up a second time in bed, only to have the same sx. The episode subsequently improved and she was able to reach the ED for further evaluation with difficulty. Her sx are worsened with sudden head movements, sitting up, and are a/w frontal head pressure. She denies fever, chills, recent infections, SOB, chest pain, arrythmia, tinnitus, visual changes, or changes in urinary or bowel function. Of note, pt was dx with BPPV "many years ago." Her last episode was ~1 yr ago, when she was seen by an ENT specialist. At the time, her episodes were shorter in duration (5-10 seconds), thus when this instance was longer, she became worried. Pt also suffered a mechanical fall 2.5 weeks ago, where she was seen in the [facility] ED. Pt was with head trauma, but her head CT was (-) for any bleed. She saw Dr. Chopra a few days after her ED visit, and was recommended to see neuro, Dr. Wheat. Pt was rx caffeine pills and was to have a brain MRI as she also had increased clear nasal discharge, as well as watery eyes that were concerning for CSF leak. 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 Smoking: quit 15 yrs ago, had smoked 1 ppd for 20 yrs previously Alcohol: socially in past, does not drink now d/t "medication side effects" Drugs: marijuana as a teenager Family History: father- alzheimer's dz (also in uncle) - from [place] s/ p prostate surgery, mother - when pt was 15 from brain aneurysm, HTN Allergies Cephalosporins Allergy (Verified 03/17/18 08:47) clindamycin Allergy (Verified 03/17/18 08:47) lithium Allergy (Verified 03/17/18 08:47) Penicillins Allergy (Verified 03/17/18 08:47) Swelling RASH,RESP DIFFICULTY Sulfa (Sulfonamide Antibiotics) Allergy (Verified 03/17/18 08:47) SEAFOOD Allergy (Uncoded 03/17/18 08:47) HOME MEDICATIONS: Home Medications Medication Instructions Recorded Amlodipine Besylate 5 mg PO DAILY 09/28/15 Docusate Sodium [Colace -] 400 mg PO HS 09/28/15 Duloxetine HCl [Cymbalta] 120 mg PO DAILY 09/28/15 Multivitamins [Multivit ([facility] 1 tab PO DAILY 09/28/15 Formulary)] Olanzapine [Zyprexa] 12.5 mg PO HS 09/28/15 Omeprazole [Prilosec] 40 mg PO DAILY 09/28/15 Pravastatin Sodium [Pravachol -] 20 mg PO HS 09/28/15 Sennosides [Senna -] 4 tab PO BID 09/28/15 Gluc Tucker/Chondro Tucker A/Vit C/Mn 1 each PO BID 12/01/16 [Glucosamine-Chondroitin Caps] Clonazepam [Klonopin] 1 mg PO QID 03/01/18 Chrom Renan/Brindal Hess [Garcinia 1 each PO TID 04/04/18 Cambogia Tablet] Mirabegron [Myrbetriq] 50 mg PO DAILY 04/04/18 Naproxen Sodium 550 mg PO BID 04/04/18 Pt last took her medications yesterday* Pharmacy closed, will have to call in AM for med-rec REVIEW OF SYSTEMS CONSTITUTIONAL: Absent: fever, chills, diaphoresis, generalized weakness, malaise, loss of appetite, weight change HEENT: Absent: rhinorrhea, nasal congestion, throat pain, throat swelling, difficulty swallowing, mouth swelling, ear pain, eye pain, visual changes CARDIOVASCULAR: Absent: chest pain, syncope, palpitations, irregular heart rate, lightheadedness , peripheral edema RESPIRATORY: Absent: cough, shortness of breath, dyspnea with exertion, orthopnea, wheezing, stridor, hemoptysis GASTROINTESTINAL: Absent: abdominal pain, abdominal distension, nausea, vomiting, diarrhea, constipation, melena, hematochezia GENITOURINARY: Absent: dysuria, frequency, urgency, hesitancy, hematuria, flank pain, genital pain MUSCULOSKELETAL: Absent: myalgia, arthralgia, joint swelling, back pain, neck pain SKIN: Absent: rash, itching, pallor HEMATOLOGIC/IMMUNOLOGIC: Absent: easy bleeding, easy bruising, lymphadenopathy, frequent infections ENDOCRINE: Absent: unexplained weight gain, unexplained weight loss, heat intolerance, cold intolerance NEUROLOGIC: +dizziness, headache Absent:focal weakness or paresthesias, unsteady gait, seizure, mental status changes, bladder or bowel incontinence PSYCHIATRIC: Absent: anxiety, depression, suicidal or homicidal ideation, hallucinations. PHYSICAL EXAMINATION Vital Signs - 24 hr 04/04/18 12:10 Temperature 98 F Pulse Rate 89 Respiratory 20 Rate Blood Pressure 162/76 O2 Sat by Pulse 94 L Oximetry (%) GENERAL: Pleasant. Awake, alert, and fully oriented, in no acute distress. Appears comfortable HEAD: Normal with no signs of trauma. EYES: Pupils equal, round and reactive to light, extraocular movements intact, sclera anicteric, conjunctiva clear. EARS, NOSE, THROAT: Ears normal, nares patent, oropharynx clear without exudates. Moist mucous membranes. NECK: Normal range of motion, supple without lymphadenopathy LUNGS: distant breath sounds equal, clear to auscultation bilaterally. difficult to assess d/t body habitus HEART: Regular rate and rhythm, distant. normal S1 and S2 without murmur, rub or gallop. ABDOMEN: Soft, obese, nontender, not distended, normoactive bowel sounds, no guarding, no rebound, no masses MUSCULOSKELETAL: Normal range of motion at all joints. UPPER EXTREMITIES: 2+ radial pulses, warm, well-perfused. No cyanosis. No peripheral edema. LOWER EXTREMITIES: 2+ pt pulses, warm, well-perfused. No calf tenderness. trace pedal edema NEUROLOGICAL: Cranial nerves II-XII intact. 5/5 motor strength in upper and lower extremities. sensation and cerebellar fnc intact. no pronator drift. PSYCHIATRIC: Cooperative. SKIN: Warm, dry, normal turgor Laboratory Results - last 24 hr 04/04/18 04/04/18 14:40 14:40 WBC 9.2 RBC 5.03 Hgb 14.0 Hct 43.1 MCV 85.7 MCH 27.8 MCHC 32.4 RDW 15.7 H Plt Count 278 MPV 8.6 Absolute Neuts (auto) 6.3 Neutrophils % 68.4 Lymphocytes % 18.9 Monocytes % 8.6 Eosinophils % 4.0 Basophils % 0.1 Nucleated RBC % 0 Sodium 143 Potassium 3.9 Chloride 106 Carbon Dioxide 31 Anion Gap 6 L BUN 16 Creatinine 0.6 Creat Clearance w eGFR > 60 Random Glucose 113 H Calcium 8.9 Total Bilirubin 0.4 AST 18 ALT 27 Alkaline Phosphatase 122 H Troponin I < 0.02 Total Protein 7.1 Albumin 3.8 IMAGING 04/04/18: Head CT non con: no hemorrhage, mass effect or hydrocephalus TESTING 04/04/18: EKG: NSR, vent rate 80bpm, [place] 156ms, QTc 454ms. no ST or T wave changes ASSESSMENT/PLAN: 67 y/o F with PMH OA, HTN, HLD, bipolar disorder, IBS, spinal stenosis, urinary incontinence and BPPV, who presents to the ED c/o episodes of vertigo that started this AM. #Vertigo likely 2/2 BPPV -Pt with dx BPPV in past, more severe episode with longer duration -no hx recent illnesses, however may be 2/2 medications such as senna. -episodes worsened with sudden movement -received one dose meclizine 25mg x 1 in ED. Will continue with meclizine 25mg TID PRN -if continues and with ataxia, as per neuro may start valium 2.5mg HS -will hydrate with IVF -Neuro: Dr. Wheat; will decide if brain MRI needed -note: pt with metal plate in RLE, metal wiring in R shoulder* #HTN- uncontrolled -likely 2/2 discomfort -continue amlodipine 5mg PO qd #HLD -continue pravachol 20mg PO HS #bipolar disorder -continue zyprexa 12.5mg PO HS - hold for now until verified with pharmacy in AM -cymbalta 120mg PO HS -Klonopin 1mg PO QID-hold for now until verified with pharmacy in AM #IBS -continue colace 400mg PO HS -Hold senna 4 tab BID, as may have exacerbated vertigo -continue to follow lytes #urinary incontinence -continue myrbetriq 50mg PO qd #OA -hold glucosamine-chrondroitin for now -hold naproxen #F/E/N IV NS 100 cc/hr continue to follow lytes sodium controlled, cholesterol free diet #PPX DVT: hep 5000 SQ TID #Dispo monitoring on observation will need med -rec in AM when pharmacy is open Visit type - Emergency Visit Emergency Visit: Yes Care time: The patient presented to the Emergency Department on the above date and was hospitalized for further evaluation of their emergent condition. - New Patient This patient is new to me today: Yes Date on this admission: 04/04/18 - Critical Care Critical Care patient: No Hospitalist Screening - Colonoscopy Questionnaire Colonoscopy Questionnaire: Colonoscopy Questionnaire - Patient: 50 - 75 years old and never had a screening colonoscopy: Unknown History of colon or rectal polyps, or CA: Unknown History of IBD, Crohn's disease or UC: Unknown History of abdominal radiation therapy as a child: Unknown - Relative: 1 with colon or rectal CA, or polyps at age 60 or younger: Unknown Colon or rectal CA diagnosed at age 45 or younger: Unknown Multiple relatives with colon or rectal CA: Unknown - Outcome: Screening Result: Negative Screen
--- NOTE | 2018-04-04 17:41 | CON.NEURO ---
Consult Consult Specialty:: NEUROLOGY-JASON MOBLEY Reason for Consultation:: Vertigo - History of Present Illness History of Present Illness: Pt. has a hx of episodic vertigo x 2.5 years, last episode ocurred 1 month ago. 2.5 wks ago fell on her face, since had mid-forehead pain and minimal nasal congestion/discharge of clear fluid for which i saw her last week and placed her on oral caffeine for a possible CSF leak-this she says has improved, she has no headache. Today woke up and had 2 episodes of vertigo each lasting less than a minute acc. by ataxia of gait-still feels she has difficulty ambulating( I feel shaky). Denies all other neurologic symptoms. +hx. of pancreatitis with Depakote. - Alcohol/Substance Use Hx Alcohol Use: No - Smoking History Smoking history: Never smoked Have you smoked in the past 12 months: No Home Medications - Allergies Allergies/Adverse Reactions: Allergies Allergy/AdvReac Type Severity Reaction Status Date / Time Cephalosporins Allergy Verified 03/17/18 08:47 clindamycin Allergy Verified 03/17/18 08:47 lithium Allergy Verified 03/17/18 08:47 Penicillins Allergy Swelling Verified 03/17/18 08:47 Sulfa (Sulfonamide Allergy Verified 03/17/18 08:47 Antibiotics) SEAFOOD Allergy Uncoded 03/17/18 08:47 - Home Medications Home Medications: Ambulatory Orders Amlodipine Besylate 5 mg PO DAILY 09/28/15 Docusate Sodium [Colace -] 400 mg PO HS 09/28/15 Duloxetine HCl [Cymbalta] 120 mg PO DAILY 09/28/15 Multivitamins [Multivit ([facility] Formulary)] 1 tab PO DAILY 09/28/15 Olanzapine [Zyprexa] 12.5 mg PO HS 09/28/15 Omeprazole [Prilosec] 40 mg PO DAILY 09/28/15 Pravastatin Sodium [Pravachol -] 20 mg PO HS 09/28/15 Sennosides [Senna -] 4 tab PO BID 09/28/15 Gluc Tucker/Chondro Tucker A/Vit C/Mn [Glucosamine-Chondroitin Caps] 1 each PO BID 12/01 Clonazepam [Klonopin] 1 mg PO QID 03/01/18 Chrom Renan/Brindal Hess [Garcinia Cambogia Tablet] 1 each PO TID 04/04/18 Mirabegron [Myrbetriq] 50 mg PO DAILY 04/04/18 Naproxen Sodium 550 mg PO BID 04/04/18 Physical Exam-Neuro Vital Signs: Vital Signs Temperature 98 F 04/04/18 12:10 Pulse Rate 89 04/04/18 12:10 Respiratory Rate 20 04/04/18 12:10 Blood Pressure 162/76 04/04/18 12:10 O2 Sat by Pulse Oximetry (%) 94 L 04/04/18 12:10 Labs: CBC, BMP 04/04/18 14:40 04/04/18 14:40 - Neuro Exam DTR's: 1+ Left Bicep, 1+ Right Bicep, 1+ Left Tricep, 1+ Right Tricep, 1+ Left Brachioradialis, 1+ Right Brachioradialis, 1+ Left Achilles, 1+ Right Achilles Motor Strength: 5/5: Left Arm, Right Arm, Left Leg, Right Leg Gait: Other (Feels vertiginous when she attempts to stand. ) Imaging - Results Cat Scan: Report Reviewed (Hyperostosis frontalis interna. Mild microvascular ischemic changes.) Assessment/Plan Likely recurrence of benign positional vertigo. If pt. remains ataxic would admit for hydration and place on Valium 2.5mg hs, meclizine 25mg tid. Thank you, Margaret Wheat MD
[2018-04-04] MEDS ORDERED: SODIUM CHLORIDE 1,000 ML IV SCH (18:15)
[2018-04-04] MEDS ORDERED: DOCUSATE SODIUM 100 MG CAPSULE (FP) PO SCH (22:00)
[2018-04-05 02:39] VITALS: BMI 49.0
[2018-04-05] MEDS: MECLIZINE HCL 25 MG TABLET (FP) PO PRN ×2 (02:49→14:21)
[2018-04-05] MEDS: DULoxetine HCL 30 MG CAPSULE.DR (FP) PO SCH ×2 (02:53→10:28)
[2018-04-05] MEDS: HEPARIN NA (PORCINE) 5,000 UNITS/ML 1ML VIAL SQ SCH ×3 (02:53→14:22)
[2018-04-05] MEDS ORDERED: clonazePAM 0.5 MG TABLET PO ONE ×2 (03:10→14:54)
[2018-04-05] MEDS ORDERED: NAPROXEN 500 MG TABLET (FP) PO ONE ×2 (03:10→14:55)
[2018-04-05 07:00] LABS: HEMATOCRIT 38.1 % (32.4-45.2); HEMOGLOBIN 12.5 GM/dL (10.7-15.3); MCH 28.2 pg (25.7-33.7); MCHC 32.9 g/dl (32.0-36.0); MEAN CELL VOLUME 85.6 fl (80-96); MEAN PLT VOLUME 8.2 fl (7.5-11.1); PLATELET COUNT 237 K/MM3 (134-434); RBC 4.45 M/mm3 (3.60-5.2); WHITE BLOOD COUNT 8.7 K/mm3 (4.0-10.0)
[2018-04-05 07:46] LABS: ANION GAP 5 (8-16); BLOOD UREA NITROGEN 15 mg/dL (7-18); CALCIUM 8.4 mg/dL (8.5-10.1); CHLORIDE 108 mmol/L (98-107); CO2 30 mmol/L (21-32); CREATININE 0.6 mg/dL (0.55-1.02); GLUCOSE,RANDOM 109 mg/dL (74-106); PHOSPHOROUS 3.7 mg/dL (2.5-4.9); POTASSIUM 3.7 mmol/L (3.5-5.1); SODIUM 143 mmol/L (136-145)
[2018-04-05] MEDS ORDERED: amLODIPine BESYLATE 5 MG TABLET (FP) PO SCH (10:00)
[2018-04-05] MEDS ORDERED: PANTOPRAZOLE 20 MG TABLET (FP) PO SCH (10:00)
[2018-04-05 13:20] VITALS: BP 143/85; PULSE 92; TEMP 98.3
--- NOTE | 2018-04-05 17:27 | EKG ---
Test Reason : Blood Pressure : / mmHG Vent. Rate : 080 BPM Atrial Rate : 080 BPM P-R Int : 156 ms QRS Dur : 084 ms QT Int : 394 ms P-R-T Axes : 036 -02 031 degrees QTc Int : 454 ms NORMAL SINUS RHYTHM NORMAL ECG WHEN COMPARED WITH ECG OF 30-JAN-1998 13:09, T WAVE VARIATION Confirmed by RAULITO GOLDSTEIN MD ([id number]) on 04/05/2018 5:27:16 PM Referred By: Confirmed By:RAULITO GOLDSTEIN MD
[2018-04-05] MEDS ORDERED: clonazePAM 0.5 MG TABLET PO SCH (18:00)
--- NOTE | 2018-04-05 21:10 | DS ---
Physical Exam: SUBJECTIVE: Patient seen and examined at bedside. No acute events overnight; with mild episodes of lightheadedness. Today, improved. ambulated with PT to solarium on floor. Denies LARES, tinnitus, visual changes, or focal neurological deficits. OBJECTIVE: Vital Signs Period Temp Pulse Resp BP Sys/Lane Pulse Ox Last 24 Hr 98.1 F-98.3 F 75-92 18-18 136-143/79-85 95-95 PHYSICAL EXAM GENERAL: The patient is pleasant, calm. awake, alert, and fully oriented, in no acute distress. HEAD: Normal with no signs of trauma. EYES: PERRL, extraocular movements intact, sclera anicteric, conjunctiva clear. ENT: Ears normal, nares patent, oropharynx clear without exudates, moist mucous membranes. NECK: Trachea midline, full range of motion, supple. LUNGS: Breath sounds equal, clear to auscultation bilaterally, no wheezes, no crackles, no accessory muscle use. distant d/t body habitus HEART: +distant S1, S2 without murmur, rub or gallop. ABDOMEN: Soft, obese, nontender, nondistended, normoactive bowel sounds, no guarding EXTREMITIES: 2+ pt pulses, warm, well-perfused, no edema. NEUROLOGICAL: Cranial nerves II through XII grossly intact. PSYCH: Normal mood, normal affect. SKIN: Warm, dry, normal turgor LABS Laboratory Results - last 24 hr 04/05/18 04/05/18 06:00 06:00 WBC 8.7 RBC 4.45 Hgb 12.5 Hct 38.1 MCV 85.6 MCH 28.2 MCHC 32.9 RDW 16.0 H Plt Count 237 MPV 8.2 Sodium 143 Potassium 3.7 Chloride 108 H Carbon Dioxide 30 Anion Gap 5 L BUN 15 Creatinine 0.6 Creat Clearance w eGFR > 60 Random Glucose 109 H Calcium 8.4 L Phosphorus 3.7 Magnesium 2.0 IMAGING 04/04/18: Head CT non con: no hemorrhage, mass effect or hydrocephalus TESTING 04/04/18: EKG: NSR, vent rate 80bpm, LA 156ms, QTc 454ms. no ST or T wave changes HOSPITAL COURSE: Date of Admission:04/04/18 Date of Discharge: 04/05/18 Admit diagnosis: Vertigo likely 2/2 BPPV 67 y/o F with PMH OA, HTN, HLD, bipolar disorder, IBS, spinal stenosis, urinary incontinence and BPPV, who presented to the ED c/o episodes of vertigo that started on AM of admission. As per pt, in AM when she woke up, as soon as she sat up, she felt as if the "room was spinning." The episode lasted for 20-30 seconds. Pt lay back down to alleviate her sx, went back to sleep, and sat up a second time in bed, only to have the same sx. The episode subsequently improved and she was able to reach the ED for further evaluation with difficulty. Her sx were worsened with sudden head movements, sitting up, and were a/w frontal head pressure. She denied fever, chills, recent infections, SOB, chest pain, arrythmia, tinnitus, visual changes, or changes in urinary or bowel function. Of note, pt was dx with BPPV "many years ago." Her last episode was ~1 yr ago, when she was seen by an ENT specialist. At the time, her episodes were shorter in duration (5-10 seconds), thus when this instance was longer, she became worried. Pt also suffered a mechanical fall 2.5 weeks ago, where she was seen in the [facility] ED. Pt was with head trauma, but her head CT was (-) for any bleed. She saw Dr. Chopra a few days after her ED visit, and was recommended to see neuro, Dr. Wheat. Pt was rx caffeine pills and was to have a brain MRI as she also had increased clear nasal discharge, as well as watery eyes that were concerning for CSF leak. Pt for observation for vertigo likely 2/2 BPPV. Pt underwent Head CT non-con which was negative for any hemorrhage, mass effect, or hydrocephalus. She was maintained on IV NS 100 cc/hr, and was seen by neuro. As per neuro, she was placed on meclizine 25mg PO TID PRN and no further acute intervention (such as MRI brain) was recommended. She will f/u with neuro in 1 week, as well as with her PCP. Case was also d/w social worker health services, who will have walker sent to her home tomorrow (04/06) to aid with ambulation. Pt counseled on weight loss and expresses interest in bariatric surgery. She will continue her home meds, however meds such as senna, glucosamine-chondroitin caps, garcinia cambogia luna tablets recommended to hold until discuss further with PCP - as this meds may lead to vertigo. D/w patient at length. Questions answered, expressed verbal understanding. Minutes to complete discharge: 46 Discharge Summary Reason For Visit: VERTIGO Condition: Improved - Instructions Diet, Activity, Other Instructions: You were in the hospital for vertigo. You were seen by a neurologist, Dr. Wheat and started on meclizine. You had a CT scan of your head which did not show a bleed. Your visit You were seen by the medicine and neurology teams. Medications You may continue your home medications, however we recommend discontinuing the following: -Senna 4x/day -Glucosamine/chondroitin caps -Garcinia cambogia tablets- Luan It is possible that these medications may have contributed to your vertigo. Please discuss with your primary care doctor before continuing. You may continue your other home medications. For your vertigo, you may take meclizine 25mg three times a day only as needed. Care -a walker will be delivered to your home tomorrow, as we discussed. -please be careful when walking, and avoid falls Follow-up -Please follow up with the following doctors: -Dr. Wheat, your neurologist - 1 week to discuss your hospital visit. -Dr. Chopra, your primary care doctor - 1 week If you develop chest pain, or shortness of breath, please go to the hospital. Referrals: Jai Chopra MD [Staff Physician] - 1 Week Doc Wheat MD [Staff Physician] - 1 Week Disposition: HOME - Home Medications Comprehensive Discharge Medication List: Ambulatory Orders Amlodipine Besylate 5 mg PO DAILY 09/28/15 Docusate Sodium [Colace -] 400 mg PO HS 09/28/15 Duloxetine HCl [Cymbalta] 120 mg PO DAILY 09/28/15 Multivitamins [Multivit ([facility] Formulary)] 1 tab PO DAILY 09/28/15 Olanzapine [Zyprexa] 15 mg PO HS 09/28/15 Omeprazole [Prilosec] 40 mg PO DAILY 09/28/15 Pravastatin Sodium [Pravachol -] 20 mg PO HS 09/28/15 Clonazepam [Klonopin] 1 mg PO QID 03/01/18 Mirabegron [Myrbetriq] 50 mg PO DAILY 04/04/18 Naproxen Sodium 550 mg PO BID 04/04/18 Meclizine HCl [Antivert -] 25 mg PO TID PRN #21 tablet 04/05/18 Olanzapine [Zyprexa -] 15 mg PO HS tablet 04/05/18 This patient is new to me today: No Emergency Visit: No Critical Care patient: No - Discharge Referral Referred to [facility] Med [facility].C.: No
--- NOTE | 2018-04-05 21:39 | PN ---
Teaching Attending Note Name of Resident: Clari Huitron ATTENDING PHYSICIAN STATEMENT I saw and evaluated the patient. I reviewed the resident's note and discussed the case with the resident. I agree with the resident's findings and plan as documented. SUBJECTIVE: Patient is comfortable with no acute distress, no nausea or vomiting. Feeling better. Vital Signs Temperature 98.3 F 04/05/18 13:18 Pulse Rate 92 H 04/05/18 13:18 Respiratory Rate 18 04/05/18 13:18 Blood Pressure 143/85 04/05/18 13:18 O2 Sat by Pulse Oximetry (%) 95 04/05/18 09:00 OBJECTIVE: CBCD WBC 8.7 K/mm3 (4.0-10.0) 04/05/18 06:00 RBC 4.45 M/mm3 (3.60-5.2) 04/05/18 06:00 Hgb 12.5 GM/dL (10.7-15.3) 04/05/18 06:00 Hct 38.1 % (32.4-45.2) 04/05/18 06:00 MCV 85.6 fl (80-96) 04/05/18 06:00 MCHC 32.9 g/dl (32.0-36.0) 04/05/18 06:00 RDW 16.0 % (11.6-15.6) H 04/05/18 06:00 Plt Count 237 K/MM3 (134-434) 04/05/18 06:00 MPV 8.2 fl (7.5-11.1) 04/05/18 06:00 CMP Sodium 143 mmol/L (136-145) 04/05/18 06:00 Potassium 3.7 mmol/L (3.5-5.1) 04/05/18 06:00 Chloride 108 mmol/L (98-107) H 04/05/18 06:00 Carbon Dioxide 30 mmol/L (21-32) 04/05/18 06:00 Anion Gap 5 (8-16) L 04/05/18 06:00 BUN 15 mg/dL (7-18) 04/05/18 06:00 Creatinine 0.6 mg/dL (0.55-1.02) 04/05/18 06:00 Creat Clearance w eGFR > 60 (>60) 04/05/18 06:00 Random Glucose 109 mg/dL (74-106) H 04/05/18 06:00 Calcium 8.4 mg/dL (8.5-10.1) L 04/05/18 06:00 Total Bilirubin 0.4 mg/dL (0.2-1.0) 04/04/18 14:40 AST 18 U/L (15-37) 04/04/18 14:40 ALT 27 U/L (12-78) 04/04/18 14:40 Alkaline Phosphatase 122 U/L (45-117) H 04/04/18 14:40 Total Protein 7.1 g/dl (6.4-8.2) 04/04/18 14:40 Albumin 3.8 g/dl (3.4-5.0) 04/04/18 14:40 CARDIAC ENZYMES Troponin I < 0.02 ng/ml (0.00-0.05) 04/04/18 14:40 Home Medications Medication Instructions Recorded Amlodipine Besylate 5 mg PO DAILY 09/28/15 Docusate Sodium [Colace -] 400 mg PO HS 09/28/15 Duloxetine HCl [Cymbalta] 120 mg PO DAILY 09/28/15 Multivitamins [Multivit ([facility] 1 tab PO DAILY 09/28/15 Formulary)] Olanzapine [Zyprexa] 15 mg PO HS 09/28/15 Omeprazole [Prilosec] 40 mg PO DAILY 09/28/15 Pravastatin Sodium [Pravachol -] 20 mg PO HS 09/28/15 Clonazepam [Klonopin] 1 mg PO QID 03/01/18 Mirabegron [Myrbetriq] 50 mg PO DAILY 04/04/18 Naproxen Sodium 550 mg PO BID 04/04/18 Meclizine HCl [Antivert -] 25 mg PO TID PRN #21 tablet 04/05/18 Olanzapine [Zyprexa -] 15 mg PO HS tablet 04/05/18 PE: NO Vertigo noted rest of PE per resident's note Head CT without con: no hemorrhage, mass effect or hydrocephalus EKG: NSR, vent rate 80bpm, [place] 156ms, QTc 454ms. no ST or T wave changes ASSESSMENT/PLAN: Patient is a 67 y/o Female with PMHx OA, HTN, HLD, bipolar disorder, IBS, spinal stenosis, urinary incontinence who presents to the ED c/o having vertigo that started this AM. #Vertigo improved due to BPPV; follow with dr Wheat; No need for mRI as per , continue Meclizine for now #HTN- uncontrolled continue amlodipine 5mg PO qd #HLD continue pravachol 20mg PO HS #bipolar disorder continue home meds #IBS with constipation on Senna and colace that she takes at home will continue #urinary incontinence continue home medication #hx of OA hold glucosamine-chrondroitin and naproxen DVT: hep 5000 SQ TID
[2018-04-05] MEDS ORDERED: OLANZapine 10 MG TABLET PO SCH (22:00)
[2018-04-05] MEDS ORDERED: OLANZAPINE PO SCH (22:00)
[2018-04-06] MEDS ORDERED: PATIENT'S OWN MEDICATION (NON-FORMULARY) (Mirabegron [Myrbetriq] 50 MG) PO SCH (10:00)
== END 2018-04-05 17:13 | disposition home or self-care (01) ==
LOC: JER 12:08 → J7W 15:22 → INTOOBSV 15:22
PROVIDERS: ADMIT Internal Medicine; ATTEND Internal Medicine
PROC: 3E033GC Introduction of Other Therapeutic Substance into Peripheral Vein, Percutaneous Approach (ICD-10-PCS; principal; 2018-04-04)
PROC: 3E0337Z Introduction of Electrolytic and Water Balance Substance into Peripheral Vein, Percutaneous Approach (ICD-10-PCS; 2018-04-04)
PROC: 3E013GC Introduction of Other Therapeutic Substance into Subcutaneous Tissue, Percutaneous Approach (ICD-10-PCS; 2018-04-04)
DX: R42 Dizziness and giddiness (principal); I10 Essential (primary) hypertension; E78.5 Hyperlipidemia, unspecified; F31.9 Bipolar disorder, unspecified; K58.9 Irritable bowel syndrome, unspecified; M19.90 Unspecified osteoarthritis, unspecified site; M48.00 Spinal stenosis, site unspecified; D64.9 Anemia, unspecified; K21.9 Gastro-esophageal reflux disease without esophagitis; R32 Unspecified urinary incontinence; Z87.442 Personal history of urinary calculi; Z88.0 Allergy status to penicillin; Z88.1 Allergy status to other antibiotic agents; Z88.2 Allergy status to sulfonamides; Z91.013 Allergy to seafood
CPT/HCPCS: 36415; 70450-TC; 80048; 80053; 83735; 84100; 84484; 85025; 85027; 93005; 93010; 96372; 96374; 96376; 97116-GP; 97161-GP; 99282-25; G0378; J1644; J7030

== ENCOUNTER 2018-11-08 08:01 | Day surgery (SDC) | payer OTHER ==
[2018-11-04 14:39] VITALS: BMI 53.2
[2018-11-08] MEDS ORDERED: LIDOCAINE HCL/PF 2% SDV 5ML VIAL ONE (10:10)
[2018-11-08] MEDS ORDERED: PROPOFOL 20 ML ONE (10:10)
[2018-11-08] MEDS ORDERED: MIDAZOLAM HCL 2 MG/2 ML SINGLE DOSE VIAL ONE (10:11)
[2018-11-08] MEDS ORDERED: oxyCODONE HCL 5 MG TABLET PO PRN (10:54)
[2018-11-08] MEDS ORDERED: KETOROLAC TROMETHAMINE 30 MG/1 ML VIAL IVPUSH PRN (10:54)
[2018-11-08] MEDS ORDERED: ONDANSETRON 4 MG/2 ML VIAL IVPUSH PRN (10:54)
[2018-11-08] MEDS ORDERED: LACTATED RINGERS SOLUTION 1,000 ML IV SCH (11:00)
--- NOTE | 2018-11-08 11:55 | OP ---
Operative Note - Note: Operative Date: 11/08/18 Pre-Operative Diagnosis: Right renal stoner Operation: Right ESWL Findings: 6 mm Right renal mid pole stone Post-Operative Diagnosis: Same as Pre-op Surgeon: Leeroy Padilla Anesthesia: Fractional Estimated Blood Loss (mls): 0
[2018-11-08] MEDS ORDERED: ACETAMINOPHEN 325 MG TABLET (FP) ONE (12:29)
[2018-11-08] MEDS ORDERED: ACETAMINOPHEN 325 MG TABLET (FP) PO ONE (12:39)
[2018-11-08] MEDS ORDERED: ACETAMINOPHEN 325 MG TABLET (FP) PO PRN (12:54)
[2018-11-08 13:15] VITALS: BP 131/66; PULSE 95; TEMP 97.8
--- NOTE | 2018-11-08 19:34 | OP ---
DATE OF OPERATION: 11/08/2018 PREOPERATIVE DIAGNOSIS: Right renal stone. POSTOPERATIVE DIAGNOSIS: Right renal stone. PROCEDURE: Right extracorporeal shock wave lithotripsy. ATTENDING: Andrew Augustine MD ANESTHESIA: Fractional. DESCRIPTION OF OPERATION: The patient was brought in the operating room, placed in supine position on the operating room table. Ultrasonography and fluoroscopy were performed. A 6-mm right mid-pole stone was identified. Anesthesia and preoperative antibiotics were then administered. Shock wave lithotripsy was performed without complications. The disposition of the patient was to the recovery room. ANDREW AUGUSTINE M.D. [id number]
== END 2018-11-08 13:10 | disposition home or self-care (01) ==
LOC: JASU-SURG 08:01
PROVIDERS: ATTEND Urology
PROC: 0TF3XZZ Fragmentation in Right Kidney Pelvis, External Approach (ICD-10-PCS; principal; 2018-11-08 09:30)
DX: N20.0 Calculus of kidney (principal)
CPT/HCPCS: 94760

== ENCOUNTER 2018-12-20 06:51 | Day surgery (SDC) | payer OTHER ==
[2018-12-20 08:18] VITALS: BMI 53.4
[2018-12-20] MEDS ORDERED: MIDAZOLAM HCL 2 MG/2 ML SINGLE DOSE VIAL ONE ×2 (09:09→09:21)
[2018-12-20] MEDS ORDERED: KETAMINE HCL 200 MG/20 ML VIAL ONE (09:25)
--- NOTE | 2018-12-20 09:59 | OP ---
Operative Note - Note: Operative Date: 12/20/18 Pre-Operative Diagnosis: Left renal stone Operation: Left ESWL Findings: 3 mm upper & 5 mm lower Left renal stone Surgeon: Leeroy Padilla Anesthesia: Fractional Estimated Blood Loss (mls): 0 Operative Report Dictated: Yes
[2018-12-20 12:11] VITALS: BP 140/80; PULSE 76; TEMP 97.8
--- NOTE | 2018-12-21 09:56 | OP ---
DATE OF OPERATION: 12/20/2018 PREOPERATIVE DIAGNOSIS: Left renal stone. POSTOPERATIVE DIAGNOSIS: Left renal stone. PROCEDURE: Left extracorporeal shock wave lithotripsy. ATTENDING: Andrew Augustine MD ANESTHESIA: General. OPERATION FOLLOWS: The patient was brought in the operating room, placed in supine position on the operating room table. Ultrasonography and fluoroscopy were performed. Two stones were noted in the kidney, 3-mm upper pole and 5-mm lower pole stones were identified. At this point, anesthesia and preoperative antibiotics were administered. Shock wave lithotripsy was then performed. No complications were noted. The patient tolerated the procedure very well. The disposition of the patient was to the recovery room. Excellent fragmentation was noted under real time ultrasonography and fluoroscopy. ANDREW AUGUSTINE M.D. [id number]
== END 2018-12-20 10:45 | disposition home or self-care (01) ==
LOC: JASU-SURG 06:51
PROVIDERS: ATTEND Urology
PROC: 0TF4XZZ Fragmentation in Left Kidney Pelvis, External Approach (ICD-10-PCS; principal; 2018-12-20 08:45)
DX: N20.0 Calculus of kidney (principal)

== ENCOUNTER 2019-02-09 13:32 | Emergency (ER) | payer OTHER ==
[2019-02-09 13:47] VITALS: BP 141/79; PULSE 86; TEMP 97.6; BMI 51.7
[2019-02-09] MEDS ORDERED: diazePAM 2 MG TABLET PO ONE (14:46)
[2019-02-09] MEDS ORDERED: LIDOCAINE 5% TOPICAL PATCH TP ONE (14:46)
[2019-02-09] MEDS ORDERED: LIDOCAINE 5% TOPICAL PATCH ONE (14:49)
[2019-02-09] MEDS ORDERED: diazePAM 2 MG TABLET ONE (14:49)
--- NOTE | 2019-02-09 14:51 | PDOC ---
History of Present Illness - General Chief Complaint: Chronic pain Stated Complaint: Back Pain Time Seen by Provider: 02/09/19 14:24 History Source: Patient Exam Limitations: No Limitations Past History - Travel Traveled outside of the country in the last 30 days: No Close contact w/someone who was outside of country & ill: No - Past Medical History Allergies/Adverse Reactions: Allergies Allergy/AdvReac Type Severity Reaction Status Date / Time Penicillins Allergy Severe Swelling Verified 02/09/19 13:47 Sulfa (Sulfonamide Allergy Severe Verified 02/09/19 13:47 Antibiotics) Cephalosporins Allergy Intermediate Verified 02/09/19 13:47 clindamycin Allergy Intermediate Verified 02/09/19 13:47 divalproex sodium Allergy Intermediate Verified 02/09/19 13:47 [From Depakote] lithium Allergy Intermediate Verified 02/09/19 13:47 SEAFOOD Allergy Severe Uncoded 02/09/19 13:47 Home Medications: Ambulatory Orders Amlodipine Besylate 5 mg PO DAILY 09/28/15 Docusate Sodium [Colace -] 400 mg PO HS 09/28/15 Duloxetine HCl [Cymbalta] 120 mg PO DAILY 09/28/15 Multivitamins [Multivit ([facility] Formulary)] 1 tab PO DAILY 09/28/15 Olanzapine [Zyprexa] 15 mg PO HS 09/28/15 Omeprazole [Prilosec] 40 mg PO DAILY 09/28/15 Pravastatin Sodium [Pravachol -] 20 mg PO HS 09/28/15 Clonazepam [Klonopin] 1 mg PO QID 03/01/18 Mirabegron [Myrbetriq] 50 mg PO HS 04/04/18 Aspirin [Adult Aspirin] 81 mg PO DAILY 11/04/18 Glucosamine Sulfate Dipot Chlr [Glucosamine] 1,000 mg PO DAILY 11/04/18 Meclizine HCl [Antivert -] 25 mg PO PRN PRN 11/04/18 Oxybutynin Chloride [Ditropan Xl] 10 mg PO DAILY 11/04/18 Sennosides [Senna] 4 tab PO BID 11/04/18 Metronidazole 250 mg PO TID 11/08/18 Diazepam [Valium] 2 mg PO DAILY #7 tablet MDD 1 02/09/19 Anemia: Yes Asthma: No Cancer: No Cardiac Disorders: No CVA: No COPD: No CHF: No Dementia: No Diabetes: No GI Disorders: Yes (reflux) Disorders: Yes (kidney stones;urge incontinence) HTN: Yes Hypercholesterolemia: Yes Liver Disease: No Psychiatric Problems: (bipolar) Seizures: No Thyroid Disease: No - Surgical History Abdominal Surgery: Yes (hernia) Appendectomy: Yes Cardiac Surgery: No Lung Surgery: No Neurologic Surgery: No Orthopedic Surgery: Yes (arthroscopy knee - bilat x 2) - Immunization History Immunization Up to Date: Yes - Suicide/Smoking/Psychosocial Hx Smoking History: Never smoked Have you smoked in the past 12 months: No If you are a former smoker, when did you quit?: 10 YEARS AGO Hx Alcohol Use: No Drug/Substance Use Hx: No Substance Use Type: None Hx Substance Use Treatment: No Review of Systems - Review of Systems Able to Perform ROS?: Yes Comments:: 02/09/19 14:44 CONSTITUTIONAL: Absent: fever, chills, diaphoresis, generalized weakness, malaise, loss of appetite GASTROINTESTINAL: Absent: abdominal pain, abdominal distension, nausea, vomiting, diarrhea, constipation, melena, hematochezia GENITOURINARY: Absent: dysuria, frequency, urgency, hesitancy, hematuria, flank pain, genital pain MUSCULOSKELETAL: Present: low back pain Absent: arthralgia, joint swelling SKIN: Absent: rash, itching, pallor NEUROLOGIC: Absent: headache, focal weakness or paresthesias, dizziness, unsteady gait, seizure, mental status changes, bladder or bowel incontinence PSYCHIATRIC: Absent: anxiety, depression, suicidal or homicidal ideation, hallucinations. Is the patient limited Indonesian proficient: No *Physical Exam - Vital Signs Last Vital Signs Temp Pulse Resp BP Pulse Ox 97.6 F 86 18 141/79 99 02/09/19 13:44 02/09/19 13:44 02/09/19 13:44 02/09/19 13:44 02/09/19 13:44 - Physical Exam Comments: 02/09/19 14:44 GENERAL: Well developed, well nourished. Awake and alert. No acute distress. HEENT: Normocephalic, atraumatic. PERRLA, EOMI. No conjunctival pallor. Sclera are non- icteric. Moist mucous membranes. Oropharynx is clear. NECK: Supple. Full ROM. No JVD. Carotid pulses 2+ and symmetric, without bruits. No thyromegaly. No lymphadenopathy. CARDIOVASCULAR: Regular rate and rhythm. No murmurs, rubs, or gallops. Distal pulses are 2+ and symmetric. PULMONARY: No evidence of respiratory distress. Lungs clear to auscultation bilaterally. No wheezing, rales or rhonchi. ABDOMINAL: Soft. Non-tender. Non-distended. No rebound or guarding. No organomegaly. Normoactive bowel sounds. MUSCULOSKELETAL Normal range of motion at all joints. No bony deformities or tenderness. No CVA tenderness. EXTREMITIES: No cyanosis. No clubbing. No edema. No calf tenderness. SKIN: Warm and dry. Normal capillary refill. No rashes. No jaundice. NEUROLOGICAL: Alert, awake, appropriate. Cranial nerves 2-12 intact. No deficits to light touch and temperature in face, upper extremities and lower extremities. No motor deficits in the in face, upper extremities and lower extremities. Normoreflexic in the upper and lower extremities. Normal speech. Toes are down- going bilaterally. Gait is normal without ataxia. PSYCHIATRIC: Cooperative. Good eye contact. Appropriate mood and affect. Medical Decision Making - Medical Decision Making 02/09/19 16:48 The patient is a 68-year-old female with past medical history of chronic low back pain, obesity, who presents to the emergency department today for a flare of her low back pain. She states she is seeing pain management for her symptoms. She states that when she woke up this morning her back felt very tight. She states that she was able to walk to the stretcher when EMS came. Reports that she will be having weight loss surgery on Thursday. Denies fevers, chills, trauma, fall, numbness and tingling to the extremities, weakness to the extremities, saddle anesthesia, bladder/bowel incontinence. -Pt with TTP of the b/l paraspinous muscles, L4-S1, with palpable knot consistent with muscle spasm. (-) straight leg raise. No midline tenderness -No trauma, or fever. No saddle anesthesia or bladder/bowel incontinence. No CVA tenderness. -Pt is neurologically intact on exam with no focal findings. -NSAIDS held in the ED as pt is having surgery in less than 6 days. -Lidocaine patch and valium given with relief of symptoms -DC home. Pt to f/u with her PCP. Ortho referral given. -I discussed the physical exam findings, ancillary test results and final diagnoses with the patient. I answered all of the patient's questions. The patient was satisfied with the care received and felt comfortable with the discharge plan and treatment plan. The Patient agrees to follow up with the primary care physician/specialist within 24-72 hours. Return precautions were given. *DC/Admit/Observation/Transfer Diagnosis at time of Disposition: Low back pain Qualifiers: Chronicity: acute Back pain laterality: bilateral Sciatica presence: without sciatica Qualified Code(s): M54.5 - Low back pain - Discharge Dispostion Disposition: HOME Condition at time of disposition: Stable Decision to Admit order: No - Prescriptions Prescriptions: Diazepam [Valium] 2 mg PO DAILY #7 tablet MDD 1 - Referrals Referrals: Emily Benson [Primary Care Provider] - - Patient Instructions Printed Discharge Instructions: DI for Low Back Pain Additional Instructions: You were evaluated for your low back pain today. It is most likely due to a muscle spasm Please take the Tylenol as directed ont he bottle Take the Valium every 8 hours the first day. Then take the medication at night only. Do not drink or drive after taking this medication as it may make you drowsy. You may apply warm compresses to the area. Please follow up with orthopedics if your symptoms do not improve this week; a referral has been provided to you Return to the ER for worsening pain despite treatment, numbness/weakness down the extremities, changes in the way you walk, numbness/tingling to the groin, if you have bladder/bowel incontinence, or if you have any changes in your symptoms. - Post Discharge Activity
[2019-02-09] MEDS ORDERED: LIDOCAINE PATCH REMOVAL MC SCH (22:00)
== END 2019-02-09 15:00 | disposition home or self-care (01) ==
LOC: JERFT 13:32
DX: M54.5 Low back pain (principal); Z87.891 Personal history of nicotine dependence; I10 Essential (primary) hypertension; K21.9 Gastro-esophageal reflux disease without esophagitis; Z87.442 Personal history of urinary calculi
CPT/HCPCS: 99281-25

== ENCOUNTER 2019-11-16 04:41 | Day surgery (SDC) | payer OTHER ==
[2019-11-14 13:25] VITALS: BMI 44.4
--- NOTE | 2019-11-16 09:40 | HP ---
Satellite H - Chief Complaint Chief Complaint: left wrist mass - Past Medical History Allergies/Adverse Reactions: Allergies Allergy/AdvReac Type Severity Reaction Status Date / Time Penicillins Allergy Severe Swelling Verified 11/14/19 13:26 Sulfa (Sulfonamide Allergy Severe Verified 11/14/19 13:26 Antibiotics) Cephalosporins Allergy Intermediate Verified 11/14/19 13:26 clindamycin Allergy Intermediate Verified 11/14/19 13:26 divalproex sodium Allergy Intermediate Verified 11/14/19 13:26 [From Depakote] lithium Allergy Intermediate Verified 11/14/19 13:26 SEAFOOD Allergy Severe Uncoded 11/14/19 13:26 - Current Medications Current Medications: Home Medications Medication Instructions Recorded Amlodipine Besylate 5 mg PO DAILY 09/28/15 Docusate Sodium [Colace -] 400 mg PO HS 09/28/15 Multivitamins [Multivit ([facility] 1 tab PO DAILY 09/28/15 Formulary)] Olanzapine [Zyprexa] 20 mg PO HS 09/28/15 Omeprazole [Prilosec] 40 mg PO DAILY 09/28/15 Pravastatin Sodium [Pravachol -] 20 mg PO HS 09/28/15 Clonazepam [Klonopin] 1 mg PO QID 03/01/18 Mirabegron [Myrbetriq] 50 mg PO HS 04/04/18 Meclizine HCl [Antivert -] 25 mg PO PRN PRN 11/04/18 Oxybutynin Chloride [Ditropan Xl] 10 mg PO DAILY 11/04/18 Sennosides [Senna -] 4 tab PO BID 11/04/18 Desvenlafaxine Succinate [Pristiq] 25 mg PO DAILY 11/14/19 Linaclotide [Linzess] 145 mcg PO DAILY 11/14/19 Hydrocodone/Acetaminophen 1 each PO Q6H #15 tablet MDD 4 11/16/19 [Hydrocodone-Acetamin 5-325 mg] Satellite Physical Exam - Physical Examination General Appearance: Well Nourished, Well Developed, Alert & Oriented x3 ENT: Clear Lung: Normal air movement Extremities: Other (left wrist- + mass, + ttp, nvi) Neurological: Intact, Alert, Oriented Satellite Impression/Plan - Impression/Plan Impression: left wrist ganglion cyst Operative Procedure: left wrist ganglion cyst excision Date to be Performed: 11/16/19
[2019-11-16] MEDS ORDERED: LIDOCAINE HCL 1%, 10 MG/ML (20ML VIAL) ONE (09:58)
[2019-11-16] MEDS ORDERED: PROPOFOL 20 ML ONE (11:59)
[2019-11-16] MEDS ORDERED: ceFAZolin 2 GRAM PREMIX BAG IVPB ONE (12:47)
[2019-11-16] MEDS ORDERED: BUPIVACAINE HCL/PF 0.5% (5 MG/ML) 30 ML VIAL IJ ONE (12:58)
[2019-11-16] MEDS ORDERED: LIDOCAINE HCL 1%, 10 MG/ML (20ML VIAL) NR ONE (12:58)
[2019-11-16] MEDS ORDERED: oxyCODONE HCL 5 MG TABLET PO PRN (13:17)
[2019-11-16] MEDS ORDERED: ONDANSETRON 4 MG/2 ML VIAL IVPUSH PRN (13:17)
--- NOTE | 2019-11-16 13:29 | OP ---
Operative Note - Note: Operative Date: 11/16/19 Pre-Operative Diagnosis: left wrist volar mass/ ganglion cyst Operation: excision left wrist mass/ganglion cyst Post-Operative Diagnosis: Same as Pre-op Surgeon: Dominik Abdi Anesthesiologist/TERMINAL COMPUTER OPERATOR: Rosa M Woodruff Anesthesia: General, Local, MAC Specimens Removed: ganglion cyst/mass Estimated Blood Loss (mls): 0 Drains, Volume Out (mls): 0 Blood Volume Replaced (mls): 0 Fluid Volume Replaced (mls): 500 Operative Report Dictated: Yes
[2019-11-16] MEDS ORDERED: LACTATED RINGERS SOLUTION 1,000 ML IV SCH (13:30)
[2019-11-16] MEDS ORDERED: ceFAZolin SODIUM 1 GM VIAL ONE (13:38)
[2019-11-16 15:42] VITALS: BP 129/70; PULSE 89; TEMP 98
--- NOTE | 2019-11-17 01:05 | OP ---
DATE OF OPERATION: 11/16/2019 PREOPERATIVE DIAGNOSIS: Left wrist volar ganglion cyst. POSTOPERATIVE DIAGNOSIS: Left wrist volar ganglion cyst. PROCEDURE: Excision left wrist mass. SURGEON: Dominik Rosas M.D. MIRROR DEPARTMENT SUPERVISOR: None. ANESTHESIOLOGIST: MERVAT Woodruff ANESTHESIA: LMA anesthesia with local injection of 8 mL 0.5% Marcaine, 1% lidocaine mix. DRAINS: None. COMPLICATIONS: None. SPECIMENS: Mass left wrist. BLOOD LOSS: None. BLOOD GIVEN: None. FLUID REPLACEMENT: 500 mL. INDICATION: This patient is a 69-year-old female with the preoperative diagnosis of a painful growing mass on the volar radial aspect of the left wrist. After understanding the potential risks, complications, alternatives, benefits to surgery versus nonsurgical treatment, the patient elected to undergo this procedure. DESCRIPTION OF PROCEDURE; The patient was brought to the operating room, peripheral IV placed, IV sedation given, 2 g of IV Ancef was given slowly; there was no reaction whatsoever. LMA anesthesia was induced. A tourniquet was applied and left upper extremity was prepped and draped in sterile fashion. The entire case was done under 3.8 loupe magnification. A longitudinal incision was marked out with a marking pen. 8 mL 0.5% Marcaine and 1% lidocaine mix injected in and around surgical incision. Longitudinal incision was made with a number 15 scalpel blade. Subcutaneous hemostasis was achieved with a bipolar cautery. Dissection done through the subcutaneous fat with a curved Littler scissors. Small self-retaining retractors are placed into the wound. A multiloculated ganglion cyst is immediately identified. Circumferential dissection was done with the Littler scissors as well as a blunt-tipped [place] elevator freeing up the multiloculated ganglion cyst. I was able to see 3 components. The radial artery as well as some small branches of it were in and around the ganglion cyst. Care was taken to dissect and free up the cyst. None needed to be sacrificed or cauterized. An Allis clamp was then placed on the cyst, retracted. Attention put on the base. I was able to identify the stalk, and the base was decapitated at its base and passed off the field as specimen. Next, I cauterized the base of the ganglion cyst stalk. The area was copiously irrigated and washed out. I cauterized the base a bit more. It was washed out again, and closure done with 4-0 undyed Vicryl in the deep dermal layer. Final skin reapproximation was done with a running subcuticular 4-0 Biosyn. The area was then washed and dried copiously. Steri-Strips, 4x4s Webril and Coban. Tourniquet was taken down after total tourniquet time of about 22 minutes. There were no complications during the case. The patient tolerated the procedure quite well, was brought to ambulatory recovery in stable condition. DOMINIK ROSAS M.D. [id number]
--- NOTE | 2019-11-18 16:04 | PATH ---
Surgical Pathology Report Patient Name: YENNY AMOR [facility]. Rec. #: [id number] /Age/Gender: 1950 (Age: 69) / F Account: [id number] Location: [facility] SURGICAL Taken: 11/16/2019 Received: 11/17/2019 Reported: 11/18/2019 Physicians: Dominik Abdi M.D. Specimen(s) Received LEFT GANGLION CYST Clinical History Left wrist ganglion cyst Final Diagnosis LEFT WRIST MASS, EXCISION: CONSISTENT WITH GANGLION CYST. Electronically Signed Liliam Laguna M.D. Gross Description Received in formalin labeled "left wrist mass," is a 1.0 x 0.5 x 0.4 cm guzman-yellow portion of soft tissue, possibly consistent with a ganglion cyst. The specimen is bisected and entirely submitted in one cassette. /11/17/2019 saudi/11/17/2019
== END 2019-11-16 15:30 | disposition home or self-care (01) ==
LOC: JASU-SURG 04:41
PROVIDERS: ATTEND Orthopaedic Surgery
PROC: 0LB60ZZ Excision of Left Lower Arm and Wrist Tendon, Open Approach (ICD-10-PCS; principal; 2019-11-16 11:30)
DX: M67.432 Ganglion, left wrist (principal)
CPT/HCPCS: 88304-TC; 94760

== ENCOUNTER 2019-12-05 15:56 | Inpatient (IN) | payer OTHER ==
--- NOTE | 2019-12-05 16:03 | PDOC ---
Rapid Medical Evaluation Chief Complaint: Pain Medical Evaluation: Allergies Allergy/AdvReac Type Severity Reaction Status Date / Time Penicillins Allergy Severe Swelling Verified 11/14/19 13:26 Sulfa (Sulfonamide Allergy Severe Verified 11/14/19 13:26 Antibiotics) Cephalosporins Allergy Intermediate Verified 11/14/19 13:26 clindamycin Allergy Intermediate Verified 11/14/19 13:26 divalproex sodium Allergy Intermediate Verified 11/14/19 13:26 [From Depakote] lithium Allergy Intermediate Verified 11/14/19 13:26 SEAFOOD Allergy Severe Uncoded 11/14/19 13:26 I have performed a brief in-person evaluation of this patient. The patient presents with a chief complaint of: c/o generalized abd pain, chills , adame/green diarrhea x 3 days; denies vomiting; hx of appendectomy, hysterectomy, hernia repair; denies recent travel, use of abx; recently started on Vilazodone for depression 4 days ago; had 1 episode of diarrhea today Pertinent physical exam findings: In NAD, abdomen NT I have ordered the following: Labs, IVF The patient will proceed to the ED for further evaluation. 12/05/19 16:01
[2019-12-05] MEDS ORDERED: SODIUM CHLORIDE 1,000 ML IV STA (16:04)
--- NOTE | 2019-12-05 19:46 | PDOC ---
History of Present Illness - General Chief Complaint: Pain Stated Complaint: ABD PAIN/VOMITING/DIARRHEA Time Seen by Provider: 12/05/19 16:02 History Source: Patient - History of Present Illness Initial Comments: 12/05/19 19:46 69 year old female diarrhea, abdominal pain, nausea x 3 days. patient reports feeling dehydrated., patient reports that she was started on vilazadone 4 days ago for depression. unsure if this is side effect of medication. PMHX: Hypercholestremia, hypertension,IBS, bipolar, PSHX: appendectomy, hernia , total hysterectomy, gastric sleeve 12/05/19 19:58 Past History - Past Medical History Allergies/Adverse Reactions: Allergies Allergy/AdvReac Type Severity Reaction Status Date / Time Penicillins Allergy Severe Swelling Verified 12/05/19 16:09 Sulfa (Sulfonamide Allergy Severe Verified 12/05/19 16:09 Antibiotics) Cephalosporins Allergy Intermediate Verified 12/05/19 16:09 clindamycin Allergy Intermediate Verified 12/05/19 16:09 divalproex sodium Allergy Intermediate Verified 12/05/19 16:09 [From Depakote] lithium Allergy Intermediate Verified 12/05/19 16:09 SEAFOOD Allergy Severe Uncoded 12/05/19 16:09 Home Medications: Ambulatory Orders Amlodipine Besylate 5 mg PO DAILY 09/28/15 Docusate Sodium [Colace -] 400 mg PO HS 09/28/15 Multivitamins [Multivit ([facility] Formulary)] 1 tab PO DAILY 09/28/15 Olanzapine [Zyprexa] 20 mg PO HS 09/28/15 Omeprazole [Prilosec] 40 mg PO DAILY 09/28/15 Pravastatin Sodium [Pravachol -] 20 mg PO HS 09/28/15 Clonazepam [Klonopin] 1 mg PO QID 03/01/18 Mirabegron [Myrbetriq] 50 mg PO HS 04/04/18 Meclizine HCl [Antivert -] 25 mg PO PRN PRN 11/04/18 Oxybutynin Chloride [Ditropan Xl] 10 mg PO DAILY 11/04/18 Sennosides [Senna -] 4 tab PO BID 11/04/18 Desvenlafaxine Succinate [Pristiq] 25 mg PO DAILY 11/14/19 Linaclotide [Linzess] 145 mcg PO DAILY 11/14/19 Hydrocodone/Acetaminophen [Hydrocodone-Acetamin 5-325 mg] 1 each PO Q6H #15 tablet MDD 4 11/16/19 Anemia: Yes Asthma: No Cancer: No Cardiac Disorders: No CVA: No COPD: No CHF: No Dementia: No Diabetes: No GI Disorders: Yes (reflux) Disorders: Yes (kidney stones;urge incontinence) HTN: Yes Hypercholesterolemia: Yes Liver Disease: No Psychiatric Problems: (bipolar) Seizures: No Thyroid Disease: No - Surgical History Abdominal Surgery: Yes (hernia) Appendectomy: Yes Cardiac Surgery: No Lung Surgery: No Neurologic Surgery: No Orthopedic Surgery: Yes (arthroscopy knee - bilat x 2) - Immunization History Immunization Up to Date: Yes - Psycho Social/Smoking Cessation Hx Smoking History: Never smoked Have you smoked in the past 12 months: No If you are a former smoker, when did you quit?: 20 YEARS AGO Information on smoking cessation initiated: No Hx Alcohol Use: No Drug/Substance Use Hx: No Substance Use Type: None Hx Substance Use Treatment: No Review of Systems - Review of Systems Able to Perform ROS?: Yes Is the patient limited Czech proficient: No Constitutional: Yes: Chills HEENTM: No: Symptoms Reported, See HPI, Eye Pain, Blurred Vision, Tearing, Recent change in vision, Double Vision, Cataracts, Ear Pain, Ocular Prothesis, Ear Discharge, Nose Pain, Nose Congestion, Tinnitus, Nose Bleeding, Hearing Loss , Throat Pain, Throat Swelling, Mouth Pain, Dental Problems, Difficulty Swallowing, Mouth Swelling, Other ABD/GI: Yes: Diarrhea, Nausea, Abdominal cramping : No: Symptoms Reported, See HPI, Burning, Dysuria, Discharge, Frequency, Flank Pain, Hematuria, Incontinence, Pain, Urgency, Testicular Mass, Testicular Swelling, Lesions, Testicular Pain, Other Musculoskeletal: Yes: Back Pain *Physical Exam - Vital Signs Last Vital Signs Temp Pulse Resp BP Pulse Ox 98.1 F 89 16 165/79 100 12/05/19 15:59 12/05/19 15:59 12/05/19 15:59 12/05/19 15:59 12/05/19 15:59 - Physical Exam General Appearance: Yes: Appropriately Dressed Respiratory/Chest: positive: Lungs Clear Cardiovascular: positive: Regular Rhythm, Regular Rate Gastrointestinal/Abdominal: positive: Normal Bowel Sounds, Tender (RUQ/ RLQ), Soft Musculoskeletal: positive: Normal Inspection. negative: CVA Tenderness Extremity: positive: Normal Capillary Refill, Normal Inspection, Normal Range of Motion Integumentary: positive: Normal Color, Dry, Warm Neurologic: positive: Fully Oriented, Alert ED Treatment Course - LABORATORY CBC & Chemistry Diagram: 12/05/19 18:45 12/05/19 18:45 - Medications Given in the ED: ED Medications Discontinued Medications Generic Name Dose Route Start Last Admin Trade Name Geraldo PRN Reason Stop Dose Admin Sodium Chloride 1,000 mls @ 1,000 mls/hr 12/05/19 16:04 12/05/19 18:59 Normal Saline - IV 12/05/19 17:03 1,000 mls/hr ASDIR STA Administration ED Progress Note - Progress Note Progress Note: 12/05/19 19:56 A: abdominal pain; renal colic P: cbc cmp lipase abdominal US: CBD dilated CTAP: 4.3 obstructing right renal stone. Medical Decision Making - Medical Decision Making 12/06/19 00:45 Right proximal obstructed stone : leukocytosis. patient signed out to Arjun Mccullough (admitting MD.). advised not to start antibiotics. will defer antibiotics as per admitting physician 12/06/19 01:13 12/06/19 01:17 Discharge - Discharge Information Problems reviewed: Yes Clinical Impression/Diagnosis: Renal colic on right side Abdominal pain Qualifiers: Abdominal location: generalized Qualified Code(s): R10.84 - Generalized abdominal pain - Admission Yes - Follow up/Referral - Patient Discharge Instructions - Post Discharge Activity
[2019-12-05] MEDS ORDERED: ONDANSETRON 4 MG/2 ML VIAL IVPB ONE (19:51)
[2019-12-05] MEDS ORDERED: ONDANSETRON 4 MG/2 ML VIAL ONE (19:52)
[2019-12-05 19:55] LABS: EOS % 0.3 % (0-4.5); HEMATOCRIT 46.5 % (32.4-45.2); HEMOGLOBIN 15.1 GM/dL (10.7-15.3); LYMPH % 9.8 % (8-40); MCHC 32.4 g/dl (32.0-36.0); MEAN CELL VOLUME 86.3 fl (80-96); NEUT % 80.9 % (42.8-82.8); PLATELET COUNT 306 K/MM3 (134-434); RBC 5.38 M/mm3 (3.60-5.2); RDW 14.4 % (11.6-15.6); WHITE BLOOD COUNT 14.4 K/mm3 (4.0-10.0)
[2019-12-05 20:23] LABS: ALBUMIN 3.6 g/dl (3.4-5.0); BILIRUBIN,TOTAL 0.8 mg/dL (0.2-1); BLOOD UREA NITROGEN 16.3 mg/dL (7-18); CALCIUM 9.7 mg/dL (8.5-10.1); CREATININE 0.9 mg/dL (0.55-1.3); MAGNESIUM 2.1 mg/dL (1.8-2.4); POTASSIUM 3.8 mmol/L (3.5-5.1); TOT PROT 7.6 g/dl (6.4-8.2)
[2019-12-05] MEDS ORDERED: ACETAMINOPHEN 1000 MG/100 ML VIAL (NON FORMULARY) IVPB ONE (22:49)
[2019-12-05] MEDS ORDERED: ACETAMINOPHEN INJECTION 100 ML IVPB ONE (23:25)
[2019-12-06 00:25] LABS: EPI CELLS 1.8 /HPF (0-5/HPF); HYALINE CASTS 1 /lpf (0-8); PH,URINE 6.5 (5.0-8.0); URINE APPEARANCE CLEAR; URINE BACTERIA 41.8 /hpf (NEGATIVE); URINE BILIRUBIN NEGATIVE (NEGATIVE); URINE COLOR YELLOW; URINE GLUCOSE (UA) NEGATIVE (NEGATIVE); URINE KETONE 1+ (NEGATIVE); URINE LEUK ESTERASE 1+ (NEGATIVE); URINE NITRITE NEGATIVE (NEGATIVE); URINE PROTEIN NEGATIVE (NEGATIVE); URINE RBC 1 /hpf (0-4); URINE UROBILINOGEN 0.2 mg/dL (0.2-1.0); URINE WBC 15 /hpf (0-5)
[2019-12-06] MEDS ORDERED: morphine CARPU-JECT 2 MG/1 ML DISP.SYRIN IVPUSH ONE (01:11)
[2019-12-06] MEDS ORDERED: KETOROLAC TROMETHAMINE 15 MG/ML VIAL IVPUSH ONE (01:13)
[2019-12-06] MEDS ORDERED: MORPHINE SULFATE 2 MG/ML VIAL ONE (01:19)
[2019-12-06] MEDS ORDERED: KETOROLAC TROMETHAMINE 15 MG/ML VIAL ONE (01:19)
--- NOTE | 2019-12-06 01:27 | HP ---
Admitting History and Physical - Admission Chief Complaint: Acute nausea, right sided abdominal pain, and diarrhea History of Present Illness: This 69 yr old female with hx of HTN, HLD, IBS, and bipolar disorder admitted via ER with an acute diarrhea, acute right sided abdominal pain, acute neutrophilic leukocytosis, and an acute nausea. 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: No: Alzheimer's, CVA, Dementia, Migraine, Multiple Sclerosis, Peripheral Neuropathy, Parkinson's, Seizure, Syncope, TIA, Vertigo, Other Cardiovascular: Yes: HTN, Hyperlipdemia Pulmonary: No: Asthma, Bronchitis, Cancer, COPD, O2 Dependent, Pneumonia, Previously Intubated, Pulmonary Embolus, Pulmonary Fibrosis, Sleep Apnea, Other Gastrointestinal: Yes: Constipation, Irritable Bowel Disease Hepatobiliary: Yes: Cholelithiasis Renal/: Yes: Renal Calculi Heme/Onc: No: Anemia, B12 Deficiency, Bleeding Disorder, Cancer, Current Chemotherapy, Current Radiation Therapy, Hemochromatosis, Hypercoaguable State, Myeloproliferative Synd, Sickle Cell Disease, Sickle Cell Trait, Thrombocytopenia, Other Infectious Disease: No: AIDS, C-Diff, Herpes Zoster, HIV, MRSA, STD's, Tuberculosis, VREF, Other Psych: Yes: Anxiety, Bipolar, Depression Musculoskeletal: No: Bursitis, Chronic low back pain, Hemiparesis, Hemiplegia, Osteoarthritis, Paraplegia, Other Rheumatology: No: Fibromyalgia, Gout, Lupus, Rheumatoid Arthritis, Sarcoidosis, Vasculitis, Other ENT: No: Allergic Rhinitis, Sinusitis, Other Endocrine: No: [place]'s Disease, [place]'s Disease, Diabetes Insipidus, Diabetes Mellitus, Hyperparathyroidism, Hyperthyroidism, Hypothyroidism, Osteopenia, SIADH, Other Dermatology: No: Basal Cell, Cellulitis, Eczema, Melanoma, Psoriasis, Squamous Cell, Other - Past Surgical History Past Surgical History: Yes: Appendectomy, Hernia Repair, Hysterectomy - Smoking History Smoking history: Never smoked Have you smoked in the past 12 months: No If you are a former smoker, when did you quit?: 20 YEARS AGO - Alcohol/Substance Use Hx Alcohol Use: No Home Medications - Allergies Allergies/Adverse Reactions: Allergies Allergy/AdvReac Type Severity Reaction Status Date / Time Penicillins Allergy Severe Swelling Verified 12/05/19 16:09 Sulfa (Sulfonamide Allergy Severe Verified 12/05/19 16:09 Antibiotics) Cephalosporins Allergy Intermediate Verified 12/05/19 16:09 clindamycin Allergy Intermediate Verified 12/05/19 16:09 divalproex sodium Allergy Intermediate Verified 12/05/19 16:09 [From Depakote] lithium Allergy Intermediate Verified 12/05/19 16:09 SEAFOOD Allergy Severe Uncoded 12/05/19 16:09 - Home Medications Home Medications: Ambulatory Orders Amlodipine Besylate 5 mg PO DAILY 09/28/15 Docusate Sodium [Colace -] 400 mg PO HS 09/28/15 Multivitamins [Multivit ([facility] Formulary)] 1 tab PO DAILY 09/28/15 Olanzapine [Zyprexa] 20 mg PO HS 09/28/15 Omeprazole [Prilosec] 40 mg PO DAILY 09/28/15 Pravastatin Sodium [Pravachol -] 20 mg PO HS 09/28/15 Clonazepam [Klonopin] 1 mg PO QID 03/01/18 Mirabegron [Myrbetriq] 50 mg PO HS 04/04/18 Meclizine HCl [Antivert -] 25 mg PO PRN PRN 11/04/18 Oxybutynin Chloride [Ditropan Xl] 10 mg PO DAILY 11/04/18 Sennosides [Senna -] 4 tab PO BID 11/04/18 Desvenlafaxine Succinate [Pristiq] 25 mg PO DAILY 11/14/19 Linaclotide [Linzess] 145 mcg PO DAILY 11/14/19 Hydrocodone/Acetaminophen [Hydrocodone-Acetamin 5-325 mg] 1 each PO Q6H #15 tablet MDD 4 11/16/19 Review of Systems - Review of Systems Constitutional: reports: No Symptoms Eyes: reports: No Symptoms HENT: reports: No Symptoms Neck: reports: No Symptoms Cardiovascular: reports: No Symptoms Respiratory: reports: No Symptoms Gastrointestinal: reports: Abdominal Pain, Diarrhea, Nausea Genitourinary: reports: No Symptoms Breasts: reports: No Symptoms Reported Musculoskeletal: reports: No Symptoms Integumentary: reports: No Symptoms Neurological: reports: No Symptoms Endocrine: reports: No Symptoms Hematology/Lymphatic: reports: No Symptoms Psychiatric: reports: Anxiety, Depression Physical Examination Vital Signs: Vital Signs Temperature 98.2 F 12/06/19 00:24 Pulse Rate 76 12/06/19 00:24 Respiratory Rate 20 12/06/19 00:24 Blood Pressure 136/71 12/06/19 00:24 O2 Sat by Pulse Oximetry (%) 98 12/06/19 00:24 Constitutional: Yes: Well Nourished, Calm, Mild Distress Eyes: Yes: Conjunctiva Clear, EOM Intact HENT: Yes: Atraumatic, Normocephalic Neck: Yes: Supple, Trachea Midline Cardiovascular: Yes: Regular Rate and Rhythm Respiratory: Yes: Regular, CTA Bilaterally Gastrointestinal: Yes: Normal Bowel Sounds, Soft, Abdomen, Obese, Tenderness ( right flank) ...Rectal Exam: Yes: Deferred Renal/: Yes: CVA Tenderness - Right Breast(s): Yes: WNL Musculoskeletal: Yes: WNL Extremities: Yes: WNL Edema: No Peripheral Pulses WNL: Yes Integumentary: Yes: WNL Neurological: Yes: WNL ...Motor Strength: WNL Psychiatric: Yes: WNL Labs: CBC, BMP 12/05/19 18:45 12/05/19 18:45 Imaging - Results Ultrasound: Report Reviewed Other: Report Reviewed (Lab data reviewed) Problem List - Problems (1) Abdominal pain Code(s): R10.9 - UNSPECIFIED ABDOMINAL PAIN Qualifiers: Abdominal location: generalized Qualified Code(s): R10.84 - Generalized abdominal pain (2) Renal colic on right side Code(s): N23 - UNSPECIFIED RENAL COLIC (3) Diarrhea Code(s): R19.7 - DIARRHEA, UNSPECIFIED (4) Dehydration Code(s): E86.0 - DEHYDRATION (5) Nephrolithiasis Code(s): N20.0 - CALCULUS OF KIDNEY Assessment/Plan Assessment/plan: acute right renal colic, acute diarrhea, acute nausea, acute dilatation of the right renal collecting system, acute dehydration, cholelithiasis; NPO, IV fluids, IV analgesics, IV Valium for anxiety, DVT prophylaxis, SCDs, consultation to ID and Urologist.
[2019-12-06] MEDS ORDERED: DEXTROSE 5%-0.45% SALINE 1,000 ML IV SCH (01:45)
[2019-12-06] MEDS ORDERED: ONDANSETRON 4 MG/2 ML VIAL IVPB PRN (01:49)
[2019-12-06] MEDS ORDERED: diazePAM CARPU-JECT 10 MG/2 ML DISP.SYRIN IVPUSH PRN (02:00)
[2019-12-06] MEDS: DEXTROSE 5%-0.45% SALINE 1,000 ML IV SCH ×2 (02:38→22:12)
[2019-12-06] MEDS ORDERED: diazePAM CARPU-JECT 10 MG/2 ML DISP.SYRIN ONE ×2 (04:55→10:37)
[2019-12-06] MEDS: ENOXAPARIN NA (PORCINE) 40 MG/0.4 ML DISP.SYRIN SQ SCH ×2 (10:14→10:23)
--- NOTE | 2019-12-06 11:03 | PN ---
Progress Note (short form) - Note Progress Note: ID CONSULT DICTATED R NEPHROLITHIASIS R/O SEPSIS SECONDARY TO SOURCE MULTIPLE ANTIBIOTIC ALLERGIES OBTAIN BC IVF HYDRATION EMPIRIC LEVAQUIN EVALUATION
--- NOTE | 2019-12-06 13:09 | CONS ---
INFECTIOUS DISEASE CONSULTATION DATE OF CONSULTATION: DATE OF DICTATION: 12/06/2019 HISTORY: Patient is a 69-year-old female with a history of nephrolithiasis evaluated for abdominal pain. She presented to the emergency room on December 05, 2019, with abdominal pain. She had started a new psychotropic medication on , December 01, 2019. Over the past 3 days, she has had worsening abdominal pain, chills, and diarrhea. She described the pain as constant, mainly localized to the right upper quadrant and right flank associated with chills and nonbloody stool. She denies any dysuria or hematuria. Patient has had a history of kidney stones in the past. She was last seen at the hospital for this condition in December 2018. She denies any vomiting. No complaints of hematuria. Patient has a history of multiple antibiotic allergies. PAST MEDICAL HISTORY: Positive for bipolar disorder, hypertension, hyperlipidemia, irritable bowel syndrome. PAST SURGICAL HISTORY: Status post appendectomy, hysterectomy, gastric sleeve. ALLERGIES: PENICILLIN, SULFA, CEPHALOSPORINS, CLINDAMYCIN, LITHIUM. Patient reports rash with these agents. No history of anaphylaxis. MEDICATIONS: Include Tylenol, Valium, Levaquin, morphine. SOCIAL HISTORY: She resides in the community. She is a nonsmoker. SYSTEMS REVIEW: Neurologic: No loss of consciousness, seizure activity, focal weakness. Cardiac: Negative chest pain or palpitations. Respiratory: Negative cough or sputum production. Gastrointestinal: As per HPI. Genitourinary: As per HPI. LABORATORY DATA: White count 14.4, hematocrit 46.5, platelets 306, creatinine 0.9, total bilirubin 0.8, alkaline phosphatase 138, AST 17. Urinalysis; 15 white cells. CAT scan shows right proximal ureteral stone, which is partially obstructing with a right hydronephrosis. Sonogram shows a gallbladder stone with a prominent common bile duct 1 cm. PHYSICAL EXAMINATION: General: She is awake and alert. She is out of bed to chair. She is morbidly obese. Vital Signs: Temperature 98.5, blood pressure 103/75, pulse 63 regular, respirations 16 per minute. HEENT: Sclerae anicteric. Heart: Sounds S1, S2. Lungs: Decreased breath sounds bilaterally. Abdomen: Obese, soft. There is right upper quadrant tenderness to palpation. No mass, rebound, or rigidity. Extremities: Positive for edema. IMPRESSION: 1. Right nephrolithiasis. Rule out sepsis secondary to genitourinary source. 2. Leukocytosis. 3. Multiple antibiotic allergies. Suspect genitourinary tract as source of pain and possible sepsis. Diarrhea may be partially explained by her new psychotropic medication, which can cause diarrhea. Doubt biliary tract focus of infection. PLAN: Obtain blood cultures. Await urine culture, chest x-ray. Continue empiric antibiotic coverage in this patient with multiple antibiotic allergies with Levaquin. Urology evaluation. Thank you for the kind referral. JULIA VELA M.D. [id number]
[2019-12-06 14:00] VITALS: BMI 46.9
[2019-12-06] MEDS ORDERED: HYDROmorphone HCl 2 MG/ML VIAL IVPB PRN (15:32)
[2019-12-06] MEDS: PANTOPRAZOLE 20 MG TABLET PO SCH (17:35)
[2019-12-06] MEDS: MULTIVITAMINS THER W-MINERALS COMBO TABLET (FP) PO SCH (17:35)
[2019-12-06] MEDS: OXYBUTYNIN CHLORIDE 5 MG TABLET PO SCH (17:35)
[2019-12-06] MEDS ORDERED: ATORVASTATIN CA 10 MG TABLET (FP) PO SCH (22:00)
[2019-12-06] MEDS ORDERED: OLANZapine 10 MG TABLET PO SCH (22:00)
[2019-12-07] MEDS: DEXTROSE 5%-0.45% SALINE 1,000 ML IV SCH (07:50)
--- NOTE | 2019-12-07 07:53 | CON.GU ---
Consult Consult Specialty:: urology Reason for Consultation:: right obstructive uropathy - History of Present Illness Chief Complaint: right ureteral stone with right hydronephrosis History of Present Illness: Patient is a 69 year old female with history of urolithiasis with an obstructing right ureteral stone. Patient with nause, vomiting and chills. Patient in severe colic. Patient is at risk of acute renal injury. 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: No: Alzheimer's, CVA, Dementia, Migraine, Multiple Sclerosis, Peripheral Neuropathy, Parkinson's, Seizure, Syncope, TIA, Vertigo, Other Cardio/Vascular: Yes: HTN, Hyperlipdemia Pulmonary: No: Asthma, Bronchitis, Cancer, COPD, O2 Dependent, Pneumonia, Previously Intubated, Pulmonary Embolus, Pulmonary Fibrosis, Sleep Apnea, Other Gastrointestinal: Yes: Constipation, Irritable Bowel Disease Hepatobiliary: Yes: Cholelithiasis Renal/: Yes: Renal Calculi ...: No Infectious Disease: No: AIDS, C-Diff, Herpes Zoster, HIV, MRSA, STD's, Tuberculosis, VREF, Other Psych: Yes: Anxiety, Bipolar, Depression Musculoskeletal: No: Bursitis, Chronic low back pain, Hemiparesis, Hemiplegia, Osteoarthritis, Paraplegia, Other Rheumatology: No: Fibromyalgia, Gout, Lupus, Rheumatoid Arthritis, Sarcoidosis, Vasculitis, Other ENT: No: Allergic Rhinitis, Sinusitis, Other Endocrine: No: [place]'s Disease, [place]'s Disease, Diabetes Insipidus, Diabetes Mellitus, Hyperparathyroidism, Hyperthyroidism, Hypothyroidism, Osteopenia, SIADH, Other Dermatology: No: Basal Cell, Cellulitis, Eczema, Melanoma, Psoriasis, Squamous Cell, Other - Past Surgical History Past Surgical History: Yes: Appendectomy, Hernia Repair, Hysterectomy - Alcohol/Substance Use Hx Alcohol Use: No - Smoking History Smoking history: Never smoked Have you smoked in the past 12 months: No If you are a former smoker, when did you quit?: 20 YEARS AGO Home Medications - Allergies Allergies/Adverse Reactions: Allergies Allergy/AdvReac Type Severity Reaction Status Date / Time Penicillins Allergy Severe Swelling Verified 12/05/19 16:09 Sulfa (Sulfonamide Allergy Severe Verified 12/05/19 16:09 Antibiotics) Cephalosporins Allergy Intermediate Verified 12/05/19 16:09 clindamycin Allergy Intermediate Verified 02/24/20 16:09 divalproex sodium Allergy Intermediate Verified 12/05/19 16:09 [From Depakote] lithium Allergy Intermediate Verified 12/05/19 16:09 SEAFOOD Allergy Severe Uncoded 12/05/19 16:09 - Home Medications Home Medications: Ambulatory Orders Amlodipine Besylate 5 mg PO DAILY 09/28/15 Docusate Sodium [Colace -] 400 mg PO HS 09/28/15 Multivitamins [Multivit ([facility] Formulary)] 1 tab PO DAILY 09/28/15 Olanzapine [Zyprexa] 20 mg PO HS 09/28/15 Omeprazole [Prilosec] 40 mg PO DAILY 09/28/15 Pravastatin Sodium [Pravachol -] 20 mg PO HS 09/28/15 Clonazepam [Klonopin] 1 mg PO QID 03/01/18 Mirabegron [Myrbetriq] 50 mg PO HS 04/04/18 Meclizine HCl [Antivert -] 25 mg PO PRN PRN 11/04/18 Oxybutynin Chloride [Ditropan Xl] 10 mg PO DAILY 11/04/18 Sennosides [Senna -] 4 tab PO BID 11/04/18 Desvenlafaxine Succinate [Pristiq] 25 mg PO DAILY 11/14/19 Linaclotide [Linzess] 145 mcg PO DAILY 11/14/19 Hydrocodone/Acetaminophen [Hydrocodone-Acetamin 5-325 mg] 1 each PO Q6H #15 tablet MDD 4 11/16/19 Physical Exam- Vital Signs: Vital Signs Temperature 98.2 F 12/07/19 06:00 Pulse Rate 60 12/07/19 06:00 Respiratory Rate 20 12/07/19 06:00 Blood Pressure 140/70 12/07/19 06:00 O2 Sat by Pulse Oximetry (%) 98 12/06/19 12:08 Constitutional: Yes: Moderate Distress, Obese Eyes: Yes: WNL, Conjunctiva Clear, EOM Intact HENT: Yes: WNL, Atraumatic, Normocephalic Neck: Yes: WNL, Supple, Trachea Midline Cardiovascular: Yes: WNL, Regular Rate and Rhythm Respiratory: Yes: WNL, Regular, CTA Bilaterally Gastrointestinal: Yes: WNL, Soft, Hypoactive Bowel Sounds Renal/: Yes: CVA Tenderness - Right Kidneys: Yes: FLank Pain Right Pelvis: Yes: WNL, Bladder Non Palpable External Genitalia: Yes: WNL Imaging - Results Cat Scan: Report Reviewed Assessment/Plan impression right obstructing ureteral stone with hydronephrosis plan patient is emergently taken to the OR due to risk of renal injury if obstruction not corrected 25 minutes spent with patient and staff
[2019-12-07 07:58] LABS: BASO % 0.1 % (0-2.0); EOS % 3.8 % (0-4.5); HEMATOCRIT 35.8 % (32.4-45.2); HEMOGLOBIN 11.9 GM/dL (10.7-15.3); LYMPH % 37.5 % (8-40); MCH 28.4 pg (25.7-33.7); MCHC 33.1 g/dl (32.0-36.0); MEAN CELL VOLUME 85.7 fl (80-96); MEAN PLT VOLUME 8.5 fl (7.5-11.1); NEUT % 46.6 % (42.8-82.8); PLATELET COUNT 224 K/MM3 (134-434); RBC 4.18 M/mm3 (3.60-5.2); RDW 14.1 % (11.6-15.6); WHITE BLOOD COUNT 7.3 K/mm3 (4.0-10.0)
[2019-12-07] MEDS ORDERED: PROPOFOL 20 ML ONE (08:20)
[2019-12-07 08:22] LABS: ALBUMIN 2.7 g/dl (3.4-5.0); BILIRUBIN,TOTAL 0.7 mg/dL (0.2-1); BLOOD UREA NITROGEN 9.4 mg/dL (7-18); CALCIUM 8.3 mg/dL (8.5-10.1); CREATININE 0.5 mg/dL (0.55-1.3); POTASSIUM 3.7 mmol/L (3.5-5.1); TOT PROT 5.4 g/dl (6.4-8.2)
[2019-12-07] MEDS ORDERED: IOHEXOL 300 MG/ML INFUS..BTL IV ONE (08:31)
[2019-12-07] MEDS ORDERED: DEXAMETHASONE SOD PHOSPHATE 4 MG/1 ML VIAL ONE (08:36)
[2019-12-07] MEDS ORDERED: KETOROLAC TROMETHAMINE 30 MG/1 ML VIAL ONE (08:40)
--- NOTE | 2019-12-07 08:51 | OP ---
Operative Note - Note: Operative Date: 12/07/19 Pre-Operative Diagnosis: right ureteral stone with hydronephrosis and acute renal injury Operation: cystoscopy/right retrograde pyelogram/right ureteroscopic stone manipulation and stent placement Findings: impacted right upj stone with grade 4/5 hydronephrosis and acute renal injury Post-Operative Diagnosis: Other (same with impacted upj stone with near complete obstruction of right kidney) Surgeon: Leeroy Padilla Anesthesia: General Drains & Tubes with Location: 04/04 right ureteral stent Operative Report Dictated: Yes
[2019-12-07] MEDS ORDERED: ACETAMINOPHEN 325 MG TABLET (FP) PO PRN (08:58)
[2019-12-07] MEDS ORDERED: amLODIPine BESYLATE 5 MG TABLET (FP) PO SCH (10:00)
--- NOTE | 2019-12-07 10:09 | PN ---
Progress Note, Physician History of Present Illness: S/P CYSTO/ STENT NO C/O PAIN AFEBRILE WBC IMPROVED BC PRELIM NO GROWTH - Current Medication List Current Medications: Active Medications Acetaminophen (Tylenol -) 650 mg PO Q4H PRN PRN Reason: Pain-PACU ORDER X 2 DOSES ONLY Amlodipine Besylate (Norvasc -) 5 mg PO DAILY [facility] Atorvastatin Calcium (Lipitor -) 10 mg PO HS [facility] Last Admin: 12/06/19 22:03 Dose: 10 mg Docusate Sodium (Colace -) 400 mg PO HS [facility] Fentanyl (Sublimaze Injection -) 50 mcg IVPUSH [id number] PRN PRN Reason: PAIN-PACU ORDER X 4 DOSES ONLY Dextrose/Sodium Chloride (D5-1/2ns -) 1,000 mls @ 75 mls/hr IV ASDIR [facility] Last Admin: 12/06/19 22:12 Dose: 75 mls/hr Levofloxacin (Levaquin 500 Mg Premixed Ivpb -) 500 mg in 100 mls @ 100 mls/hr IVPB DAILY [facility]; Protocol Last Admin: 12/06/19 11:43 Dose: 100 mls/hr Lactated Ringer's (Lactated Ringers Solution) 1,000 mls @ 75 mls/hr IV ASDIR [facility] Multivitamins/Minerals (Theragran-M) 1 each PO DAILY [facility] Last Admin: 12/06/19 17:35 Dose: 1 each Olanzapine (Zyprexa -) 20 mg PO HS [facility] Last Admin: 12/06/19 22:00 Dose: 20 mg Ondansetron HCl (Zofran Injection) 4 mg IVPB Q6H PRN PRN Reason: NAUSEA Oxybutynin Chloride (Ditropan -) 10 mg PO DAILY [facility] Last Admin: 12/06/19 17:35 Dose: 10 mg Pantoprazole Sodium (Protonix -) 20 mg PO DAILY [facility] Last Admin: 12/06/19 17:35 Dose: 20 mg Senna (Senna -) 4 tab PO BID [facility] - Objective Vital Signs: Vital Signs Temperature 97.5 F L 12/07/19 08:52 Pulse Rate 68 12/07/19 09:05 Respiratory Rate 16 12/07/19 09:05 Blood Pressure 111/62 12/07/19 09:05 O2 Sat by Pulse Oximetry (%) 98 12/07/19 09:05 Constitutional: Yes: No Distress Eyes: Yes: Conjunctiva Clear Cardiovascular: Yes: Regular Rate and Rhythm, S1, S2 Respiratory: Yes: CTA Bilaterally Gastrointestinal: Yes: Normal Bowel Sounds, Soft. No: Tenderness Labs: CBC, BMP 12/07/19 06:10 12/07/19 06:10 Assessment/Plan NEPHROLITHIASIS S/P CYSTO/ STENT PLACEMENT R/O SEPSIS SECONDARY TO SOURCE MULTIPLE ANTIBIOTIC ALLERGIES AWAIT C/S CONTINUE EMPIRIC LEVAQUIN
[2019-12-07] MEDS ORDERED: PT OWN MED DRAWER 7, Y5N ONE (10:53)
[2019-12-07] MEDS: PANTOPRAZOLE 20 MG TABLET PO SCH (11:01)
[2019-12-07] MEDS: OXYBUTYNIN CHLORIDE 5 MG TABLET PO SCH (11:01)
[2019-12-07] MEDS: MULTIVITAMINS THER W-MINERALS COMBO TABLET (FP) PO SCH (11:01)
--- NOTE | 2019-12-07 11:19 | PN ---
Progress Note, Physician Chief Complaint: Patient seen and examined at the bedside, no acute events from last night, no nausea or abdominal pain. History of Present Illness: This 69 yr old w/f with PMH of morbid obesity, HTN, HLD, IBS, and bipolar disorder admitted via ER with acute diarrhea, acute right flank abdominal pain, acute neutrophilic leukocytosis, and acute nausea. - Current Medication List Current Medications: Active Medications Acetaminophen (Tylenol -) 650 mg PO Q4H PRN PRN Reason: Pain-PACU ORDER X 2 DOSES ONLY Amlodipine Besylate (Norvasc -) 5 mg PO DAILY [facility] Last Admin: 12/07/19 11:01 Dose: 5 mg Atorvastatin Calcium (Lipitor -) 10 mg PO HS [facility] Last Admin: 12/06/19 22:03 Dose: 10 mg Docusate Sodium (Colace -) 400 mg PO HS [facility] Fentanyl (Sublimaze Injection -) 50 mcg IVPUSH [id number] PRN PRN Reason: PAIN-PACU ORDER X 4 DOSES ONLY Dextrose/Sodium Chloride (D5-1/2ns -) 1,000 mls @ 75 mls/hr IV ASDIR [facility] Last Admin: 12/07/19 07:50 Dose: 75 mls/hr Levofloxacin (Levaquin 500 Mg Premixed Ivpb -) 500 mg in 100 mls @ 100 mls/hr IVPB DAILY [facility]; Protocol Last Admin: 12/07/19 11:02 Dose: 100 mls/hr Lactated Ringer's (Lactated Ringers Solution) 1,000 mls @ 75 mls/hr IV ASDIR [facility] Multivitamins/Minerals (Theragran-M) 1 each PO DAILY [facility] Last Admin: 12/07/19 11:01 Dose: 1 each Olanzapine (Zyprexa -) 20 mg PO HS [facility] Last Admin: 12/06/19 22:00 Dose: 20 mg Ondansetron HCl (Zofran Injection) 4 mg IVPB Q6H PRN PRN Reason: NAUSEA Oxybutynin Chloride (Ditropan -) 10 mg PO DAILY [facility] Last Admin: 12/07/19 11:01 Dose: 10 mg Pantoprazole Sodium (Protonix -) 20 mg PO DAILY [facility] Last Admin: 12/07/19 11:01 Dose: 20 mg Senna (Senna -) 4 tab PO BID [facility] - Objective Vital Signs: Vital Signs Temperature 97.4 F L 12/07/19 09:50 Pulse Rate 61 12/07/19 09:50 Respiratory Rate 16 12/07/19 09:50 Blood Pressure 117/61 12/07/19 09:50 O2 Sat by Pulse Oximetry (%) 100 12/07/19 09:50 Constitutional: Yes: Well Nourished, Calm, Mild Distress Eyes: Yes: Conjunctiva Clear, EOM Intact HENT: Yes: Atraumatic, Normocephalic Neck: Yes: Supple, Trachea Midline Cardiovascular: Yes: Regular Rate and Rhythm Respiratory: Yes: Regular, CTA Bilaterally Gastrointestinal: Yes: Normal Bowel Sounds, Soft ...Rectal Exam: Yes: Deferred Genitourinary: Yes: WNL Breast(s): Yes: WNL Musculoskeletal: Yes: WNL Extremities: Yes: WNL Edema: No Peripheral Pulses WNL: Yes Integumentary: Yes: WNL Neurological: Yes: WNL ...Motor Strength: WNL Psychiatric: Yes: WNL Labs: CBC, BMP 12/07/19 06:10 12/07/19 06:10 - ....Imaging Other: Report Reviewed (Lab data reviewed) Problem List - Problems (1) Abdominal pain Code(s): R10.9 - UNSPECIFIED ABDOMINAL PAIN Qualifiers: Abdominal location: generalized Qualified Code(s): R10.84 - Generalized abdominal pain (2) Renal colic on right side Code(s): N23 - UNSPECIFIED RENAL COLIC (3) Diarrhea Code(s): R19.7 - DIARRHEA, UNSPECIFIED (4) Dehydration Code(s): E86.0 - DEHYDRATION (5) Nephrolithiasis Code(s): N20.0 - CALCULUS OF KIDNEY (6) Urolithiasis Code(s): N20.9 - URINARY CALCULUS, UNSPECIFIED (7) Right ureteral stone Code(s): N20.1 - CALCULUS OF URETER Assessment/Plan Assessment/plan: acute right flank abdominal pain, acute nausea and diarrhea, acute obstructing right ureteral stone with hydronephrosis, (impacted right upj stone with grade 4/5 hydronephrosis and acute renal injury); IV fluids, s/p cystoscopy-right retrograde pyelogram-right ureteroscopic manipulation and stent placement, incentive spirometer, DVT prophylaxis, out of bed in chair as tolerated, oxygen 4L/min via nasal cannula.
--- NOTE | 2019-12-07 15:24 | OP ---
DATE OF OPERATION: 12/07/2019 PREOPERATIVE DIAGNOSIS: Right obstructing ureteral stone. POSTOPERATIVE DIAGNOSIS: Grade 4/5 hydronephrosis, secondary to right upper ureteral stone with acute kidney injury. ATTENDING: Andrew Augustine MD ANESTHESIA: General. PROCEDURES: Cystoscopy, right retrograde pyelogram, right ureteroscopic stone manipulation, and stent placement. The operation was as follows. The patient is a 69-year-old female with a history of bilateral urolithiasis. The patient has a proximal, [id number] obstructing stone. The patient is in severe distress with a high risk of acute renal injury. Due to the risk of acute renal injury, the patient is emergently taken to the operating room to correct an obstructed kidney. The patient is explained all risks and benefits. The patient is placed in supine position on the operating room table and anesthesia was administered; after which, the patient is placed in the dorsal lithotomy position. She is prepped and draped in the usual sterile manner. Cystoscopy is performed. A retrograde pyelogram is performed through an open-ended catheter, which shows a UPJ obstruction with severe hydronephrosis. A wire is passed with mild difficulty into the kidney. At this point, ureteroscopy is taken to the level of the obstruction and a stone is seen impacted at the right UPJ. A second wire is utilized in order to bypass the stone and allow the ureteroscope to be manipulated in order to push the stone into the kidney. With the stone pushed into the kidney, there was hematuria that was released, causing poor visualization of the stone. It was decided, at this point, to place a stent and to allow the kidney to heal. A 6-H[place]er, 24-cm stent was placed utilizing the Seldinger technique. No complications were noted. The patient tolerated the procedure very well. The disposition of the patient is to the recovery room. ANDREW AUGUSTINE M.D. [id number]
[2019-12-07] MEDS: LACTATED RINGERS SOLUTION 1,000 ML IV SCH ×2 (17:17→18:23)
[2019-12-07] MEDS: SENNOSIDES 8.6MG TABLET (FP) PO SCH (21:48)
[2019-12-07] MEDS ORDERED: DOCUSATE SODIUM 100 MG CAPSULE (FP) PO SCH ×2 (22:00)
[2019-12-07] MEDS ORDERED: SENNOSIDES 8.6MG TABLET (FP) PO SCH (22:00)
[2019-12-07] MEDS ORDERED: OLANZapine 10 MG TABLET PO SCH (22:00)
[2019-12-07] MEDS ORDERED: ATORVASTATIN CA 10 MG TABLET (FP) PO SCH (22:00)
--- NOTE | 2019-12-08 08:30 | PN ---
Progress Note (short form) - Note Progress Note: Anesthesia POD#1 S/P Cysto with Stent under GA VSS, OB to chair, no N/V,no pain. food is advanced. Kayla Calles MD.
--- NOTE | 2019-12-08 09:16 | DS ---
Physical Examination Vital Signs: Vital Signs Temperature 98.0 F 12/08/19 06:00 Pulse Rate 73 12/08/19 06:00 Respiratory Rate 18 12/08/19 06:00 Blood Pressure 137/73 12/08/19 06:00 O2 Sat by Pulse Oximetry (%) 98 12/07/19 21:00 Constitutional: Yes: Well Nourished, No Distress, Calm Eyes: Yes: Conjunctiva Clear, EOM Intact HENT: Yes: Atraumatic, Normocephalic Neck: Yes: Supple, Trachea Midline Cardiovascular: Yes: Regular Rate and Rhythm Respiratory: Yes: Regular, CTA Bilaterally Gastrointestinal: Yes: Normal Bowel Sounds, Soft ...Rectal Exam: Yes: Deferred Renal/: Yes: Hematuria (pink urine), Other (s/p right ureteroscopic manipulation (removal of stone) plus insertion of stent) Breast(s): Yes: WNL Musculoskeletal: Yes: WNL Extremities: Yes: WNL Edema: No Peripheral Pulses WNL: Yes Integumentary: Yes: WNL Neurological: Yes: WNL ...Motor Strength: WNL Psychiatric: Yes: WNL Labs: CBC, BMP 12/07/19 06:10 12/07/19 06:10 Discharge Summary Problems reviewed: Yes Reason For Visit: RENAL COLIC ON RIGHT SIDE, ABDOMINAL PAIN Current Active Problems Abdominal pain (Acute) Dehydration (Acute) Diarrhea (Acute) Nephrolithiasis (Acute) Renal colic on right side (Acute) Right ureteral stone (Acute) Urolithiasis (Acute) Condition: Good - Instructions Diet, Activity, Other Instructions: Continue home meds except for Vilazodone (diarrhea). Drink plenty of water daily 3 to 4 quarts. Activity as tolerated. Follow up with Dr. Todd Fuentes within one week. Total time spent over 30 minutes. Referrals: Jai Chopra MD [Primary Care Provider] - Disposition: HOME - Home Medications Comprehensive Discharge Medication List: Ambulatory Orders Amlodipine Besylate 5 mg PO DAILY 09/28/15 Docusate Sodium [Colace -] 400 mg PO HS 09/28/15 Multivitamins [Multivit ([facility] Formulary)] 1 tab PO DAILY 09/28/15 Olanzapine [Zyprexa] 20 mg PO HS 09/28/15 Omeprazole [Prilosec] 40 mg PO DAILY 09/28/15 Pravastatin Sodium [Pravachol -] 20 mg PO HS 09/28/15 Clonazepam [Klonopin] 1 mg PO QID 03/01/18 Mirabegron [Myrbetriq] 50 mg PO HS 04/04/18 Meclizine HCl [Antivert -] 25 mg PO PRN PRN 11/04/18 Oxybutynin Chloride [Ditropan Xl] 10 mg PO DAILY 11/04/18 Sennosides [Senna -] 4 tab PO BID 11/04/18 Desvenlafaxine Succinate [Pristiq] 25 mg PO DAILY 11/14/19 Linaclotide [Linzess] 145 mcg PO DAILY 11/14/19 Acetaminophen [Tylenol .Regular Strength -] 650 mg PO Q4H PRN tablet 12/08/19 Amlodipine Besylate [Norvasc -] 5 mg PO DAILY tablet 12/08/19 Amlodipine Besylate [Norvasc -] 5 mg PO DAILY tablet 12/08/19 Atorvastatin Ca [Lipitor] 10 mg PO HS tablet 12/08/19 Atorvastatin Ca [Lipitor] 10 mg PO HS tablet 12/08/19 Olanzapine [ZyPREXA -] 20 mg PO HS tablet 12/08/19 Olanzapine [ZyPREXA -] 20 mg PO HS tablet 12/08/19 Oxybutynin Chloride [Ditropan -] 10 mg PO DAILY tablet 12/08/19 Oxybutynin Chloride [Ditropan -] 10 mg PO DAILY tablet 12/08/19 Pantoprazole Sodium [Protonix -] 20 mg PO DAILY tablet.ec 12/08/19 Pantoprazole Sodium [Protonix -] 20 mg PO DAILY tablet.ec 12/08/19 Sennosides [Senna -] 4 tab PO BID tablet 12/08/19 Sennosides [Senna -] 4 tab PO BID tablet 12/08/19 Solifenacin Succinate [Vesicare -] 5 mg PO DAILY tab 12/08/19
[2019-12-08] MEDS ORDERED: SOLIFENACIN SUCCINATE 5 MG TAB PO SCH (10:00)
[2019-12-08] MEDS ORDERED: MULTIVITAMINS THER W-MINERALS COMBO TABLET (FP) PO SCH (10:00)
[2019-12-08] MEDS ORDERED: PANTOPRAZOLE 20 MG TABLET PO SCH (10:00)
[2019-12-08] MEDS ORDERED: OXYBUTYNIN CHLORIDE 5 MG TABLET PO SCH (10:00)
[2019-12-08] MEDS ORDERED: amLODIPine BESYLATE 5 MG TABLET (FP) PO SCH (10:00)
[2019-12-08] MEDS ORDERED: PT OWN MED DRAWER 7, Y5N ONE (10:31)
[2019-12-08] MEDS: SENNOSIDES 8.6MG TABLET (FP) PO SCH (10:33)
[2019-12-08] MEDS: LACTATED RINGERS SOLUTION 1,000 ML IV SCH (10:34)
[2019-12-08 12:39] VITALS: BP 155/80; PULSE 92; TEMP 97.9
== END 2019-12-08 13:49 | disposition home or self-care (01) | DRG 660 ==
LOC: JER 15:56 → JERBED 12-06 00:44 → J8W 12-06 12:44
PROVIDERS: ADMIT Internal Medicine; ATTEND Internal Medicine
PROC: BT1DZZZ Fluoroscopy of Right Kidney, Ureter and Bladder (ICD-10-PCS; 2019-12-07)
PROC: 0TC68ZZ Extirpation of Matter from Right Ureter, Via Natural or Artificial Opening Endoscopic (ICD-10-PCS; principal; 2019-12-07 08:00)
PROC: 0T768DZ Dilation of Right Ureter with Intraluminal Device, Via Natural or Artificial Opening Endoscopic (ICD-10-PCS; 2019-12-07 08:00)
DX: N13.2 Hydronephrosis with renal and ureteral calculous obstruction (principal); Z68.42 Body mass index [BMI] 45.0-49.9, adult; E86.0 Dehydration; R19.7 Diarrhea, unspecified; K58.8 Other irritable bowel syndrome; F31.9 Bipolar disorder, unspecified; E66.01 Morbid (severe) obesity due to excess calories; N17.9 Acute kidney failure, unspecified; R31.9 Hematuria, unspecified; I10 Essential (primary) hypertension; E78.5 Hyperlipidemia, unspecified
CPT/HCPCS: 36415; 74176-TC; 76000-TC-FY; 76700-TC; 80053; 81003; 83690; 83735; 85025; 87040; 87086; 94010; 94760; 99285-25; J0131; J7030

== ENCOUNTER 2020-05-08 23:22 | Emergency (ER) | payer OTHER ==
[2020-05-08 23:34] VITALS: BMI 48.2
--- NOTE | 2020-05-08 23:36 | PDOC ---
History of Present Illness - General Chief Complaint: Pain Stated Complaint: KIDNEY STONES Time Seen by Provider: 05/08/20 23:36 History Source: Patient, EMS Exam Limitations: No Limitations - History of Present Illness Initial Comments: 05/08/20 23:36 Desiree Ocampo is a 69F with PMH multiple ureteral calculi most recent November 2019 s/p stenting without revision, bipolar depression, HTN, HLD presenting with suprapubic pain. Patient same to [facility] ED for R flank pain a few months back, found to had severe R hydronephrosis, brought to OR with Dr. Padilla, stenting performed and patient given Levaquin for pyelo given extensive Abx allergy. Discharged home, but unable to f/u with urology given covid-19. Today reports suprapubic pain and difficulty with urination, describes pressure sensation and difficulty urinating, denies blood or dysuria. Pain to lower abdomen. Denies N/V, fevers, diarrhea/constipation, chest pain, SOB. Tolerating PO. History of multiple renal calculi as well as unspecified bladder surgery. PSH includes hysterectomy and appy. Came to ED for evaluation or repeat renal stone vs. pyelo vs. eval of stent. Allergy to cephalosporins and sulfa, prior ID note Dr. Mcdonald recommends Levaquin. Denies alcohol/tobacco/drug use. Past History - Medical History Allergies/Adverse Reactions: Allergies Allergy/AdvReac Type Severity Reaction Status Date / Time Penicillins Allergy Severe Swelling Verified 05/08/20 23:30 Sulfa (Sulfonamide Allergy Severe Verified 05/08/20 23:30 Antibiotics) Cephalosporins Allergy Intermediate Verified 05/08/20 23:30 clindamycin Allergy Intermediate Verified 05/08/20 23:30 divalproex sodium Allergy Intermediate Verified 05/08/20 23:30 [From Depakote] lithium Allergy Intermediate Verified 05/08/20 23:30 SEAFOOD Allergy Severe Uncoded 05/08/20 23:30 Home Medications: Ambulatory Orders Amlodipine Besylate 5 mg PO DAILY 09/28/15 Docusate Sodium [Colace -] 400 mg PO HS 09/28/15 Multivitamins [Multivit ([facility] Formulary)] 1 tab PO DAILY 09/28/15 Olanzapine [Zyprexa] 20 mg PO HS 09/28/15 Omeprazole [Prilosec] 40 mg PO DAILY 09/28/15 Pravastatin Sodium [Pravachol -] 20 mg PO HS 09/28/15 Clonazepam [Klonopin] 1 mg PO QID 03/01/18 Mirabegron [Myrbetriq] 50 mg PO HS 04/04/18 Meclizine HCl [Antivert -] 25 mg PO PRN PRN 11/04/18 Oxybutynin Chloride [Ditropan Xl] 10 mg PO DAILY 11/04/18 Sennosides [Senna -] 4 tab PO BID 11/04/18 Desvenlafaxine Succinate [Pristiq] 25 mg PO DAILY 11/14/19 Linaclotide [Linzess] 145 mcg PO DAILY 11/14/19 Acetaminophen [Tylenol .Regular Strength -] 650 mg PO Q4H PRN tablet 12/08/19 Amlodipine Besylate [Norvasc -] 5 mg PO DAILY tablet 12/08/19 Amlodipine Besylate [Norvasc -] 5 mg PO DAILY tablet 12/08/19 Atorvastatin Ca [Lipitor] 10 mg PO HS tablet 12/08/19 Atorvastatin Ca [Lipitor] 10 mg PO HS tablet 12/08/19 Olanzapine [ZyPREXA -] 20 mg PO HS tablet 12/08/19 Olanzapine [ZyPREXA -] 20 mg PO HS tablet 12/08/19 Oxybutynin Chloride [Ditropan -] 10 mg PO DAILY tablet 12/08/19 Oxybutynin Chloride [Ditropan -] 10 mg PO DAILY tablet 12/08/19 Pantoprazole Sodium [Protonix -] 20 mg PO DAILY tablet.ec 12/08/19 Pantoprazole Sodium [Protonix -] 20 mg PO DAILY tablet.ec 12/08/19 Sennosides [Senna -] 4 tab PO BID tablet 12/08/19 Sennosides [Senna -] 4 tab PO BID tablet 12/08/19 Solifenacin Succinate [Vesicare -] 5 mg PO DAILY tab 12/08/19 levoFLOXacin [Levaquin] 750 mg PO DAILY 7 Days #7 tab 05/09/20 Anemia: Yes Asthma: No Cancer: No Cardiac Disorders: No CVA: No COPD: No CHF: No Dementia: No Diabetes: No GI Disorders: Yes (reflux ibs) Disorders: Yes (kidney stones;urge incontinence) HTN: Yes Hypercholesterolemia: Yes Liver Disease: No Psychiatric Problems: (bipolar) Seizures: No Thyroid Disease: No - Surgical History Abdominal Surgery: Yes (hernia) Appendectomy: Yes Cardiac Surgery: No Lung Surgery: No Neurologic Surgery: No Orthopedic Surgery: Yes (arthroscopy knee - bilat x 2) - Immunization History Immunization Up to Date: Yes - Psycho-Social/Smoking History Smoking History: Never smoked Have you smoked in the past 12 months: No If you are a former smoker, when did you quit?: 20 YEARS AGO - Substance Abuse Hx (Audit-C & DAST Scrn) How often the patient has a drink containing alcohol: Never Score: In Men: 4 or > Positive; In Women: 3 or > Positive: 0 Screen Result (Pos requires Nsg. Audit-10AR): Negative In the last yr the pt used illegal drug/Rx for NonMed reason: No Score: Yes response is considered Positive: 0 Screen Result (Positive result requires Nsg. DAST-10): Negative Review of Systems - Review of Systems Able to Perform ROS?: Yes Constitutional: No: Symptoms Reported HEENTM: No: Symptoms Reported Respiratory: No: Symptoms reported Cardiac (ROS): No: Symptoms Reported ABD/GI: No: Constipated, Diarrhea, Nausea, Poor Appetite, Poor Fluid Intake, Vomiting : Yes: Pain. No: Burning, Dysuria, Flank Pain, Hematuria Musculoskeletal: No: Symptoms Reported Integumentary: No: Symptoms Reported Neurological: No: Symptoms reported Endocrine: No: Symptoms Reported Hematologic/Lymphatic: No: Symptoms Reported All Other Systems: Reviewed and Negative *Physical Exam - Vital Signs Last Vital Signs Temp Pulse Resp BP Pulse Ox 97.6 F 83 20 144/83 98 05/08/20 23:28 05/08/20 23:28 05/08/20 23:28 05/08/20 23:28 05/08/20 23:28 - Physical Exam General Appearance: Yes: Nourished, Appropriately Dressed, Obese. No: Apparent Distress HEENT: positive: EOMI, [place], Normal Voice, Symmetrical, Pharynx Normal, Hearing Grossly Normal. negative: Scleral Icterus (R), Scleral Icterus (L), Pharyngeal Erythema, Tonsillar Exudate, Tonsillar Erythema Neck: positive: Trachea midline, Normal Thyroid, Supple. negative: Tender, Rigid, Decreased range of motion, Lymphadenopathy (R), Lymphadenopathy (L), Tender lateral, Tender midline Respiratory/Chest: positive: Lungs Clear, Normal Breath Sounds. negative: Chest Tender, Respiratory Distress, Accessory Muscle Use, Crackles, Rales, Rhonchi, Stridor, Wheezing Cardiovascular: positive: Regular Rhythm, Regular Rate. negative: Murmur Gastrointestinal/Abdominal: positive: Normal Bowel Sounds, Flat, Soft. negative: Tender (no tenderness to lower abdomen palpation), Organomegaly, Guarding, Rebound, Tenderness, Hernia, Mass Musculoskeletal: positive: Normal Inspection. negative: CVA Tenderness, CVA Tenderness (R), CVA Tenderness (L) Extremity: positive: Normal Capillary Refill, Normal Inspection, Normal Range of Motion, Pelvis Stable. negative: Pedal Edema, Swelling Integumentary: positive: Normal Color, Dry, Warm Neurologic: positive: Fully Oriented, Alert, Normal Mood/Affect, Normal Response Medical Decision Making - Medical Decision Making 05/09/20 01:31 Patient has known history of ureteral calculi and s/p R ureteral stenting with Dr. Padilla in Nov/Dec 2019 that was never followed-up, here with suprapubic pain and ? retention. Sending UA for eval of UTI vs calculus. Given stent, unable to eval position with US, getting CTAP spiral for eval stone vs. stent pr oblem. UA appears dirty with blood, LE, protein. Given allergies, giving 750mg PO Levaquin for UTI treatment. CTAP: mild R hydro without ureteral stones, stent in place. Pain is likely 2/2 UTI, no flank pain or systemic symptoms, lower concern for pyelo. Complicated UTI, will give 7 days Levaquin and give Randy f/u for stent. Patient discharged but needs Medicaid transport unavailable until 8AM. Waiting in ED until 8AM, will be signed out to day team. 05/09/20 05:51 Patient left ED via transport. Discharge - Discharge Information Problems reviewed: Yes Clinical Impression/Diagnosis: UTI (urinary tract infection) Qualifiers: Urinary tract infection type: acute cystitis Hematuria presence: with hematuria Qualified Code(s): N30.01 - Acute cystitis with hematuria Condition: Stable Disposition: HOME - Additional Discharge Information Prescriptions: levoFLOXacin [Levaquin] 750 mg PO DAILY 7 Days #7 tab - Follow up/Referral Referrals: Jai Chopra MD [Primary Care Provider] - Leeroy Padilla MD [Staff Physician] - - Patient Discharge Instructions Patient Printed Discharge Instructions: DI for Urinary Tract Infection (UTI) Additional Instructions: Today you were evaluated for a possible kidney stone. Your CT scan does not show any kidney stones, and your stent is in place. Your urine shows a UTI. We gave you Levaquin in the hospital,and have sent you home with more Levaquin to take each day. Please see Dr. Padilla for follow-up. If you experience inabilty to urinate, abdominal pain, fever, nausea, vomiting, or any other new or concerning symptoms, please return to the emergency room. - Post Discharge Activity
--- NOTE | 2020-05-09 00:01 | PDOC ---
Attending Attestation - Resident Resident Name: Teo Aguilar - ED Attending Attestation I have performed the following: I have examined & evaluated the patient, The case was reviewed & discussed with the resident, I agree w/resident's findings & plan, Exceptions are as noted - HPI HPI: 05/08/20 23:59 this 69 yo female p/w suprapubic pain,dysuria and increased frequency - Physicial Exam PE: 05/09/20 00:01 obese 69 yo female p/w suprapubic pain 05/09/20 00:04 head ncat neck supple lungs cta b/l cvs [id number] abdomen protuberant skin warm and dry neuro axox3,ambulatory - Medical Decision Making 05/09/20 00:23 obese 69 yo female p/w suprapubic pain . She has h/o kidney stones and has ureteral stent [place] [address] Todd Fuentes 05/09/20 00:27 head ncat neck supple lungs cta b/l cvs [id number] abdomen protuberant, + suprapubic tenderness extremities pedal edema skin warm and dry neuro axox3,ambulatory 05/09/20 01:30 ct scan abd/pel: mild rt hydronephrosis, ureteral stent in place imp:UTI pt will started on antibiotics and will follow up with urology, Dr Todd Fuentes Discharge - Discharge Information Problems reviewed: Yes Clinical Impression/Diagnosis: UTI (urinary tract infection) Qualifiers: Urinary tract infection type: acute cystitis Hematuria presence: with hematuria Qualified Code(s): N30.01 - Acute cystitis with hematuria Condition: Stable Disposition: HOME - Follow up/Referral Referrals: Jai Chopra MD [Primary Care Provider] - Leeroy Padilla MD [Staff Physician] - - Patient Discharge Instructions Patient Printed Discharge Instructions: DI for Urinary Tract Infection (UTI) Additional Instructions: Today you were evaluated for a possible kidney stone. Your CT scan does not show any kidney stones, and your stent is in place. Your urine shows a UTI. We gave you Levaquin in the hospital,and have sent you home with more Levaquin to take each day. Please see Dr. Padilla for follow-up. If you experience inabilty to urinate, abdominal pain, fever, nausea, vomiting, or any other new or concerning symptoms, please return to the emergency room. - Post Discharge Activity
[2020-05-09 00:08] LABS: EPI CELLS 21 /uL (0-25.1); HYALINE CASTS 3 /uL (0-3.1); URINE APPEARANCE CLEAR; URINE BACTERIA 52 /uL (0-1359); URINE BILIRUBIN NEGATIVE (NEGATIVE); URINE COLOR YELLOW; URINE GLUCOSE (UA) NEGATIVE (NEGATIVE); URINE KETONE NEGATIVE (NEGATIVE); URINE LEUK ESTERASE 3+ (NEGATIVE); URINE NITRITE NEGATIVE (NEGATIVE); URINE PROTEIN 1+ (NEGATIVE); URINE RBC 1310 /uL (0-23.9); URINE UROBILINOGEN 0.2 mg/dL (0.2-1.0); URINE WBC 317 /uL (0-25.8)
[2020-05-09] MEDS ORDERED: levoFLOXacin 750 MG TABLET PO ONE (01:27)
[2020-05-09] MEDS ORDERED: IBUPROFEN 600 MG TABLET (FP) PO ONE ×2 (01:50)
[2020-05-09 05:18] VITALS: BP 138/72; PULSE 81; TEMP 98.3
[2020-05-09] MEDS ORDERED: levoFLOXacin 750 MG TABLET PO SCH (10:00)
== END 2020-05-09 05:18 | disposition home or self-care (01) ==
LOC: JER 23:22
PROC: 3E033NZ Introduction of Analgesics, Hypnotics, Sedatives into Peripheral Vein, Percutaneous Approach (ICD-10-PCS; principal; 2020-05-08)
DX: N30.01 Acute cystitis with hematuria (principal)
CPT/HCPCS: 74176-TC; 81003; 87086; 99285-25

== ENCOUNTER 2020-06-15 04:19 | Day surgery (SDC) | payer OTHER ==
[2020-06-14 11:30] VITALS: BMI 48.2
[~2020-06-15 04:19] MED LIST: LIDOCAINE 1% P/F 10 MG/ML VIAL INF ONE
[2020-06-15] MEDS ORDERED: BUPIVACAINE HCL/PF 0.75% 10 ML VIAL ONE (07:32)
[2020-06-15] MEDS ORDERED: LIDOCAINE HCL 1%, 10 MG/ML (20ML VIAL) ONE (07:32)
[2020-06-15] MEDS ORDERED: TRIAMCINOLONE ACET 40MG/1ML VIAL ONE (07:32)
[2020-06-15 08:19] VITALS: TEMP 97.8
--- NOTE | 2020-06-15 10:39 | HP ---
Admitting History and Physical - Admission Chief Complaint: Right Knee Pain History of Present Illness: The patient has chronic right knee pain. History Source: Patient - Past Medical History Cardiovascular: Yes: HTN, Hyperlipdemia Gastrointestinal: Yes: Constipation, Irritable Bowel Disease Hepatobiliary: Yes: Cholelithiasis Renal/: Yes: Renal Calculi Psych: Yes: Anxiety, Bipolar, Depression - Past Surgical History Past Surgical History: Yes: Appendectomy, Hernia Repair, Hysterectomy - Smoking History Smoking history: Never smoked Have you smoked in the past 12 months: No If you are a former smoker, when did you quit?: 20 YEARS AGO - Alcohol/Substance Use Hx Alcohol Use: No Home Medications - Allergies Allergies/Adverse Reactions: Allergies Allergy/AdvReac Type Severity Reaction Status Date / Time Penicillins Allergy Severe Swelling Verified 06/15/20 08:31 Sulfa (Sulfonamide Allergy Severe Verified 06/15/20 08:31 Antibiotics) Cephalosporins Allergy Intermediate Verified 06/15/20 08:31 clindamycin Allergy Intermediate Verified 06/15/20 08:31 divalproex sodium Allergy Intermediate Verified 06/15/20 08:31 [From Depakote] lithium Allergy Intermediate Verified 06/15/20 08:31 SEAFOOD Allergy Severe Uncoded 06/15/20 08:31 - Home Medications Home Medications: Ambulatory Orders Docusate Sodium [Colace -] 400 mg PO HS 09/28/15 Multivitamins [Multivit ([facility])] 1 tab PO DAILY 09/28/15 Olanzapine [Zyprexa] 20 mg PO HS 09/28/15 Pravastatin Sodium [Pravachol -] 20 mg PO HS 09/28/15 Clonazepam [Klonopin] 1 mg PO QID 03/01/18 Mirabegron [Myrbetriq] 50 mg PO DAILY 04/04/18 Meclizine HCl [Antivert -] 25 mg PO PRN PRN 11/04/18 Linaclotide [Linzess] 290 mcg PO DAILY 11/14/19 Amlodipine Besylate [Norvasc -] 5 mg PO DAILY tablet 12/08/19 Diclofenac Sodium [Voltaren -] 25 mg PO BID 06/14/20 Furosemide [Lasix] 40 mg PO DAILY 06/14/20 Omeprazole Magnesium 40 mg PO DAILY 06/14/20 Oxybutynin Chloride [Ditropan -] 50 mg PO DAILY 06/14/20 Potassium Gluconate [Potassium] 99 mg PO DAILY 06/14/20 Sennosides [Senna -] 4 tab PO DAILY 06/14/20 Venlafaxine HCl ER [Effexor Xr -] 150 mg PO DAILY 06/14/20 Review of Systems - Review of Systems Constitutional: reports: No Symptoms Eyes: reports: No Symptoms HENT: reports: No Symptoms Neck: reports: No Symptoms Cardiovascular: reports: No Symptoms Respiratory: reports: No Symptoms Gastrointestinal: reports: No Symptoms Genitourinary: reports: No Symptoms Breasts: reports: No Symptoms Reported Musculoskeletal: reports: Joint Pain Integumentary: reports: No Symptoms Neurological: reports: No Symptoms Endocrine: reports: No Symptoms Hematology/Lymphatic: reports: No Symptoms Psychiatric: reports: No Symptoms Pain Intensity: 8 Physical Examination Vital Signs: Vital Signs Temperature 97.8 F 06/15/20 08:17 Pulse Rate 75 06/15/20 08:17 Respiratory Rate 20 06/15/20 08:17 Blood Pressure 135/72 06/15/20 08:17 O2 Sat by Pulse Oximetry (%) 98 06/15/20 08:17 Constitutional: Yes: Well Nourished, No Distress, Calm Eyes: Yes: Conjunctiva Clear, EOM Intact HENT: Yes: Atraumatic, Normocephalic Neck: Yes: Trachea Midline Cardiovascular: Yes: Regular Rate and Rhythm Respiratory: Yes: Regular Musculoskeletal: Yes: Other (right knee pain) Extremities: Yes: WNL Neurological: Yes: WNL ...Motor Strength: WNL Psychiatric: Yes: WNL Imaging - Results X-ray: Image Reviewed Assessment/Plan The patient has chronic knee pain refractory to conservative management and multiple Interventional pain procedures not a candidate for surgery at this point in time. I will perform Sprint Peripheral nerve Stimulator of the femoral nerve for treatment of her chronic right knee pain. Dameon Cervantes DO
[2020-06-15] MEDS ORDERED: LIDOCAINE 1% P/F 10 MG/ML VIAL INF ONE ×2 (11:19)
[2020-06-15 13:02] VITALS: BP 150/80; PULSE 74
--- NOTE | 2020-06-20 11:50 | PROC ---
Procedure Note Procedure: Pre procedure Diagnosis: Chronic Pain Syndrome/ knee Pain Post Procedure Diagnosis: same Anesthesia: Local Procedure Performed: Right Femoral Nerve Peripheral Stimulator Placement The right thigh was cleaned and prepped with chlorhexadine with a wide margin and allowed to dry. The external pulse generator (EPG) and grounding pad were placed over clean skin outside of the sterile field over the medial knee . A sterile drape was placed exposing only the implantation site on the anterior aspects of the thigh corresponding to the anticipated position of the peripheral femoral nerve. A SPRINT PNS device 17 gauge stimulating probe and introducer sleeve were assembled. The target location for the treatment of shoulder pain is at the medial thigh where the femoral nerve traverses on the affected side. The skin overlying the lead implantation site was anesthetized with 1 cc of 1% Lidocaine. Care was taken to assure that local anesthetic was not administered close to the target electrode implantation site to prevent an altered response to stimulation. Once the point was located, the stimulating probe needle was inserted and advanced along the intended course. Test stimulation was delivered to assist in identifying the optimal lead location. The probe was advanced to a depth of 4 cm, approximately 1 cm proximal to the depth that is used in standard needle insertion techniques. The test probe was connected to the stimulator using the provided cables and the amplitude was adjusted until the muscle was held in tension, repositioning the needle, as necessary, to identify the optimal location. Several parameters were tested until the patient indicated parasthesia overlapping the distribution of the patients typical region of pain. The stimulating probe was then removed from the introducer sleeve and a percutaneous lead was guided through the sleeve and delivered to the location in similar proximity to the nerve where the probe was tested. The proximal end of the lead was attached to a lead connector and EPG while the needle remained in position. The lead was disconnected from the connector block. Placing manual pressure at the distal tip of the introducer, the introducer was removed and the lead was deployed, secured and implanted. The exposed end of the percutaneous lead was then threaded through and secured into the connector block. Excess lead was trimmed to length. The cable was inserted into the stimulator and the stimulator was positioned on the lateral arm at which point the final stimulation response again confirmed optimal lead placement. The site was covered with a sterile occlusive dressing and a ultrasound image was taken to document final placement. The patient was observed for stability of vital signs and comfort. Optimized stimulation parameters were programmed into the stimulator. The patient and spouse/caregiver were instructed on the proper management of the site and use of the SPRINT PNS device and patient remote control. The patient was given a follow up appointment in the near future Dameon Cervantes DO
== END 2020-06-15 13:05 | disposition home or self-care (01) ==
LOC: JASU-SURG 04:19
PROVIDERS: ATTEND Pain Medicine Pain Medicine
PROC: 01HY3MZ Insertion of Neurostimulator Lead into Peripheral Nerve, Percutaneous Approach (ICD-10-PCS; principal; 2020-06-15 09:30)
DX: G89.4 Chronic pain syndrome (principal); M25.561 Pain in right knee
CPT/HCPCS: 64555; C1778

== ENCOUNTER 2021-03-22 04:20 | Day surgery (SDC) | payer OTHER ==
[2021-03-21 11:51] VITALS: BMI 50.1
[2021-03-22] MEDS ORDERED: LIDOCAINE HCL/PF 1% SDV 5ML VIAL ONE (07:25)
[2021-03-22] MEDS ORDERED: LIDOCAINE HCL 2% (20ML MULTI-DOSE VIAL) ONE (07:25)
[2021-03-22] MEDS ORDERED: BUPIVACAINE HCL/PF 0.75% 10 ML VIAL ONE (07:25)
[2021-03-22] MEDS ORDERED: LIDOCAINE HCL/PF 2% SDV 5ML VIAL ONE (07:48)
[2021-03-22] MEDS ORDERED: BUPIVACAINE HCL/PF 0.5% (5MG/ML) 10 ML VIAL ONE (13:29)
[2021-03-22] MEDS ORDERED: LIDOCAINE HCL 1% PRESERVATIVE FREE - 30ML VIAL INF ONE (13:57)
[2021-03-22] MEDS ORDERED: BUPIVACAINE HCL/PF 0.75% 10 ML VIAL NR ONE ×2 (13:57→14:20)
[2021-03-22] MEDS ORDERED: LIDOCAINE HCL/PF 2% SDV 5ML VIAL INF ONE ×2 (14:20)
[2021-03-22 14:56] VITALS: BP 142/71; PULSE 70; TEMP 97.3
== END 2021-03-22 15:16 | disposition home or self-care (01) ==
LOC: JASU-SURG 04:20
PROVIDERS: ATTEND Pain Medicine Pain Medicine
PROC: 3E0T3TZ Introduction of Destructive Agent into Peripheral Nerves and Plexi, Percutaneous Approach (ICD-10-PCS; principal; 2021-03-22 13:00)
DX: M25.561 Pain in right knee (principal)
CPT/HCPCS: 76000-TC-FY

== ENCOUNTER 2021-09-10 04:22 | Day surgery (SDC) | payer OTHER ==
[2021-09-09 09:36] VITALS: BMI 49.1
[2021-09-10] MEDS ORDERED: MIDAZOLAM HCL 2 MG/2 ML SINGLE DOSE VIAL ONE ×2 (09:55→10:06)
[2021-09-10] MEDS ORDERED: BUPIVACAINE HCL/PF 0.25% (2.5MG/ML) 10 ML VIAL ONE (10:03)
[2021-09-10] MEDS ORDERED: VANCOMYCIN 1,000 MG VIAL (RESTRICTED TO ID ONLY) ONE (10:06)
[2021-09-10] MEDS ORDERED: VANCOMYCIN 1,000 MG VIAL (RESTRICTED TO ID ONLY) IVPB ONE (10:10)
[2021-09-10 12:56] VITALS: BP 135/75; PULSE 88; TEMP 98
== END 2021-09-10 12:20 | disposition home or self-care (01) ==
LOC: JASU-SURG 04:22
PROVIDERS: ATTEND Pain Medicine Pain Medicine
PROC: 01HY0MZ Insertion of Neurostimulator Lead into Peripheral Nerve, Open Approach (ICD-10-PCS; principal; 2021-09-10 08:30)
DX: G89.4 Chronic pain syndrome (principal); M25.561 Pain in right knee
CPT/HCPCS: 64575; C1778

== ENCOUNTER 2022-09-10 04:34 | Day surgery (SDC) | payer OTHER ==
[2022-09-09 16:37] VITALS: BMI 48.2
[2022-09-10] MEDS ORDERED: FENTANYL CITRATE/PF 50 MCG/ML VIAL ONE ×3 (08:23→11:15)
[2022-09-10] MEDS ORDERED: MIDAZOLAM HCL 2 MG/2 ML SINGLE DOSE VIAL ONE (08:23)
[2022-09-10] MEDS ORDERED: NITROGLYCERIN 50 MG/10 ML VIAL IVPB ONE (08:24)
[2022-09-10] MEDS ORDERED: LIDOCAINE HCL/PF 2% SDV 5ML VIAL ONE ×2 (08:24)
[2022-09-10] MEDS ORDERED: ENALAPRILAT DIHYDRATE 2.5 MG/2 ML VIAL IVPB ONE (08:24)
[2022-09-10] MEDS ORDERED: ONDANSETRON 4 MG/2 ML VIAL ONE (08:26)
[2022-09-10] MEDS ORDERED: DEXAMETHASONE SOD PHOSPHATE 4 MG/1 ML VIAL ONE (08:26)
[2022-09-10] MEDS ORDERED: LIDOCAINE HCL 2% JELLY 10 ML CARTRIDGE ONE (08:26)
[2022-09-10] MEDS ORDERED: KETOROLAC TROMETHAMINE 30 MG/1 ML VIAL ONE (08:26)
[2022-09-10] MEDS ORDERED: PROPOFOL 20 ML ONE ×2 (08:27→09:35)
[2022-09-10] MEDS ORDERED: VANCOMYCIN 1,000 MG VIAL (RESTRICTED TO ID ONLY) ONE (09:34)
[2022-09-10] MEDS ORDERED: VANCOMYCIN 1,000 MG VIAL (RESTRICTED TO ID ONLY) IVPB ONE (09:36)
[2022-09-10] MEDS ORDERED: SODIUM CHLORIDE 0.9% P/F 10 ML VIAL IJ ONE (09:37)
[2022-09-10] MEDS ORDERED: BUPIVACAINE HCL/PF 0.5% (5MG/ML) 10 ML VIAL ONE (09:40)
[2022-09-10] MEDS ORDERED: LIDOCAINE HCL 1%, 10 MG/ML (20ML VIAL) ONE (09:40)
[2022-09-10] MEDS ORDERED: LIDOCAINE HCL 1%, 10 MG/ML (50 mL VIAL) INF ONE (09:44)
[2022-09-10] MEDS ORDERED: BUPIVACAINE HCL/PF 0.5% (5 MG/ML) 30 ML VIAL IJ ONE (09:44)
[2022-09-10] MEDS ORDERED: METOPROLOL TARTRATE 5 MG/5 ML VIAL ONE ×2 (09:59)
[2022-09-10] MEDS ORDERED: DESFLURANE GAS 240 ML BOTTLE IH ONE (10:00)
[2022-09-10] MEDS ORDERED: LIDOCAINE HCL 2% 100 MG/5 ML DISP.SYRIN ONE (10:05)
[2022-09-10] MEDS ORDERED: ONDANSETRON 4 MG/2 ML VIAL IVPUSH PRN (10:53)
[2022-09-10 15:50] VITALS: BP 130/81; PULSE 72; TEMP 98.1
[2022-09-10 15:54] VITALS: RESP 16
== END 2022-09-10 13:35 | disposition home or self-care (01) ==
LOC: JASU-SURG 04:34
PROVIDERS: ATTEND Orthopaedic Surgery
PROC: 01X40Z4 Transfer Ulnar Nerve to Ulnar Nerve, Open Approach (ICD-10-PCS; principal; 2022-09-10 09:00)
DX: G56.22 Lesion of ulnar nerve, left upper limb (principal)
CPT/HCPCS: 94760

== ENCOUNTER 2022-11-26 14:57 | Inpatient (IN) | payer OTHER ==
[2022-11-26] MEDS ORDERED: ONDANSETRON *ODT* 4 MG TABLET SL ONE (16:01)
[2022-11-26] MEDS ORDERED: FAMOTIDINE 20 MG/50 ML IVPB 20 MG/50 ML MG IVPB ONE ×2 (16:09→16:43)
[2022-11-26] MEDS ORDERED: ACETAMINOPHEN 325 MG TABLET (FP) PO ONE (16:09)
[2022-11-26] MEDS ORDERED: ONDANSETRON *ODT* 4 MG TABLET ONE (16:43)
[2022-11-26] MEDS ORDERED: ACETAMINOPHEN 325 MG TABLET (FP) ONE (16:43)
[2022-11-26] MEDS: LACTATED RINGERS SOLUTION 1,000 ML/1,000 ML INFUS.BAG IV SCH (17:17)
[2022-11-26 17:43] LABS: HEMATOCRIT 43.8 % (32.4-45.2); HEMOGLOBIN 14.5 GM/dL (10.7-15.3); LYMPH % 4.2 % (8-40); MCH 28.1 pg (25.7-33.7); MCHC 33.2 g/dl (32.0-36.0); MEAN CELL VOLUME 84.6 fl (80-96); MEAN PLT VOLUME 7.5 fl (7.5-11.1); MONO % 6.7 % (3.8-10.2); NEUT % 89.1 % (42.8-82.8); PLATELET COUNT 279 10^3/uL (134-434); RBC 5.18 M/mm3 (3.60-5.2); RDW 15.6 % (11.6-15.6); WHITE BLOOD COUNT 9.2 K/mm3 (4.0-10.0)
[2022-11-26 18:11] LABS: ALBUMIN 3.4 g/dl (3.4-5.0); BLOOD UREA NITROGEN 23.5 mg/dL (7-18)
[2022-11-26 18:13] LABS: CREATININE 0.9 mg/dL (0.55-1.3)
[2022-11-26 18:14] LABS: BILIRUBIN,TOTAL 0.3 mg/dL (0.2-1)
[2022-11-26] MEDS ORDERED: SODIUM CHLORIDE 0.9% 500 ML INFUS.BAG IV ONE (21:13)
[2022-11-26] MEDS ORDERED: ONDANSETRON 4 MG/2 ML VIAL IVPUSH ONE (21:44)
[2022-11-26] MEDS ORDERED: OLANZapine 10 MG TABLET PO SCH (22:00)
[2022-11-26] MEDS ORDERED: ATORVASTATIN CA 20 MG TABLET (FP) PO SCH (22:00)
[2022-11-26] MEDS ORDERED: D5-1/2NS+10 MEQ KCL - 10 MEQ/1,000 ML INFUS.BAG IV SCH (22:45)
[2022-11-26] MEDS ORDERED: ONDANSETRON 4 MG/2 ML VIAL IVPB PRN (22:49)
[2022-11-26] MEDS ORDERED: ONDANSETRON 4 MG/2 ML VIAL ONE (23:03)
[2022-11-26] MEDS ORDERED: KETOROLAC TROMETHAMINE 15 MG/ML VIAL IVPUSH ONE (23:15)
[2022-11-26] MEDS ORDERED: KETOROLAC TROMETHAMINE 15 MG/ML VIAL ONE (23:17)
[2022-11-27] MEDS ORDERED: D5-1/2NS+10 MEQ KCL - 10 MEQ/1,000 ML INFUS.BAG IV SCH (00:09)
[2022-11-27] MEDS ORDERED: PANTOPRAZOLE SODIUM 40 MG/100 ML BAG IVPB ONE (00:48)
[2022-11-27] MEDS ORDERED: HEPARIN NA (PORCINE) 5,000 UNITS/ML 1ML VIAL ONE (00:48)
[2022-11-27] MEDS ORDERED: clonazePAM 0.5 MG TABLET ONE (00:48)
[2022-11-27] MEDS: PANTOPRAZOLE SODIUM 40 MG VIAL IVPUSH SCH ×2 (00:54→10:11)
[2022-11-27] MEDS: HEPARIN NA (PORCINE) 5,000 UNITS/ML 1ML VIAL SQ SCH ×4 (00:54→21:35)
[2022-11-27] MEDS: clonazePAM 0.5 MG TABLET PO SCH ×3 (00:54→22:16)
[2022-11-27] MEDS ORDERED: ACETAMINOPHEN 325 MG TABLET (FP) ONE (02:34)
[2022-11-27] MEDS: ACETAMINOPHEN 325 MG TABLET (FP) PO PRN ×2 (02:51→22:16)
[2022-11-27] MEDS: OXYBUTYNIN CHLORIDE 5 MG TABLET PO SCH ×3 (02:51→22:15)
[2022-11-27 06:18] VITALS: BMI 51.0
[2022-11-27] MEDS: MULTIVITAMINS THER W-MINERALS COMBO TABLET (FP) PO SCH (10:12)
[2022-11-27] MEDS: SENNOSIDES 8.6MG TABLET (FP) PO SCH ×2 (10:12→22:16)
[2022-11-27] MEDS: TOLTERODINE TARTRATE LA 4 MG CAP.SR.24H (FP) PO SCH (10:15)
[2022-11-27 10:30] LABS: HEMATOCRIT 37.7 % (32.4-45.2); HEMOGLOBIN 12.3 GM/dL (10.7-15.3); MCH 27.9 pg (25.7-33.7); MCHC 32.6 g/dl (32.0-36.0); MEAN CELL VOLUME 85.7 fl (80-96); MEAN PLT VOLUME 7.8 fl (7.5-11.1); PLATELET COUNT 207 10^3/uL (134-434); RDW 15.7 % (11.6-15.6); WHITE BLOOD COUNT 4.7 K/mm3 (4.0-10.0)
[2022-11-27 10:54] LABS: BLOOD UREA NITROGEN 22.2 mg/dL (7-18); CALCIUM 7.9 mg/dL (8.5-10.1)
[2022-11-27 10:57] LABS: ANISOCYTOSIS 0; MACROCYTOSIS 0
[2022-11-27 10:58] LABS: CREATININE 0.8 mg/dL (0.55-1.3)
[2022-11-27] MEDS: D5-1/2NS+10 MEQ KCL - 10 MEQ/1,000 ML INFUS.BAG IV SCH (12:49)
[2022-11-27] MEDS: KCL 10 MEQ IVPB 10 MEQ/100 ML INFUS.BAG IVPB SCH ×6 (12:49→21:10)
[2022-11-27 14:08] LABS: EPI CELLS 15 /uL (0-25.1); HYALINE CASTS 0 /uL (0-3.1); URINE APPEARANCE CLEAR; URINE BACTERIA 102 /uL (0-1359); URINE BILIRUBIN NEGATIVE (NEGATIVE); URINE COLOR YELLOW; URINE GLUCOSE (UA) NEGATIVE (NEGATIVE); URINE KETONE NEGATIVE (NEGATIVE); URINE LEUK ESTERASE 2+ (NEGATIVE); URINE NITRITE NEGATIVE (NEGATIVE); URINE PROTEIN TRACE (NEGATIVE); URINE RBC 190 /uL (0-23.9); URINE UROBILINOGEN 0.2 mg/dL (0.2-1.0); URINE WBC 81 /uL (0-25.8)
[2022-11-27 17:41] LABS: N-TERMINAL BNP 319.8 pg/ml (5-125)
[2022-11-27] MEDS: LACTATED RINGERS SOLUTION 1,000 ML/1,000 ML INFUS.BAG IV SCH (17:44)
[2022-11-27] MEDS: OLANZapine 10 MG TABLET PO SCH (22:16)
[2022-11-27] MEDS: ATORVASTATIN CA 20 MG TABLET (FP) PO SCH (22:16)
[2022-11-27] MEDS: ASCORBIC ACID 500 MG TABLET (FP) PO SCH (22:19)
[2022-11-28] MEDS: KCL 10 MEQ IVPB 10 MEQ/100 ML INFUS.BAG IVPB SCH ×5 (01:00→17:31)
[2022-11-28] MEDS: D5-1/2NS+10 MEQ KCL - 10 MEQ/1,000 ML INFUS.BAG IV SCH ×3 (02:30→22:48)
[2022-11-28] MEDS: HEPARIN NA (PORCINE) 5,000 UNITS/ML 1ML VIAL SQ SCH ×3 (06:17→21:51)
[2022-11-28 08:42] LABS: HEMATOCRIT 35.2 % (32.4-45.2); HEMOGLOBIN 11.8 GM/dL (10.7-15.3); MCH 28.7 pg (25.7-33.7); MCHC 33.4 g/dl (32.0-36.0); MEAN PLT VOLUME 7.9 fl (7.5-11.1); PLATELET COUNT 202 10^3/uL (134-434); RBC 4.09 M/mm3 (3.60-5.2); RDW 15.6 % (11.6-15.6); WHITE BLOOD COUNT 5.1 K/mm3 (4.0-10.0)
[2022-11-28 09:06] LABS: BLOOD UREA NITROGEN 11.7 mg/dL (7-18); CALCIUM 8.2 mg/dL (8.5-10.1)
[2022-11-28 09:09] LABS: CREATININE 0.6 mg/dL (0.55-1.3)
[2022-11-28 09:53] LABS: ANISOCYTOSIS 0; MACROCYTOSIS 0
[2022-11-28] MEDS: PANTOPRAZOLE SODIUM 40 MG VIAL IVPUSH SCH (09:53)
[2022-11-28] MEDS: TOLTERODINE TARTRATE LA 4 MG CAP.SR.24H (FP) PO SCH (09:54)
[2022-11-28] MEDS: clonazePAM 0.5 MG TABLET PO SCH ×2 (09:54→21:50)
[2022-11-28] MEDS: OXYBUTYNIN CHLORIDE 5 MG TABLET PO SCH ×2 (09:54→21:51)
[2022-11-28] MEDS: ASCORBIC ACID 500 MG TABLET (FP) PO SCH ×2 (09:54→21:51)
[2022-11-28] MEDS: MULTIVITAMINS THER W-MINERALS COMBO TABLET (FP) PO SCH (09:54)
[2022-11-28] MEDS ORDERED: ONDANSETRON 4 MG/2 ML VIAL IVPB STA (10:59)
[2022-11-28] MEDS: SUCRALFATE 1 GM/10 ML UNIT DOSE CUPS PO SCH ×3 (14:57→22:49)
[2022-11-28] MEDS: RIFAXIMIN 550 MG TABLET PO SCH ×2 (14:57→21:51)
[2022-11-28] MEDS: ACETAMINOPHEN 325 MG TABLET (FP) PO PRN (15:05)
[2022-11-28] MEDS ORDERED: VENLAFAXINE HCL 150 MG E.R. CAPSULE PO SCH (16:00)
[2022-11-28] MEDS: LACTATED RINGERS SOLUTION 1,000 ML/1,000 ML INFUS.BAG IV SCH (16:49)
[2022-11-28] MEDS: VENLAFAXINE HCL ER 150 MG, VENLAFAXINE HCL ER 37.5 MG PO SCH (17:29)
[2022-11-28] MEDS: ATORVASTATIN CA 20 MG TABLET (FP) PO SCH (21:50)
[2022-11-28] MEDS: OLANZapine 10 MG TABLET PO SCH (21:50)
[2022-11-29] MEDS: ACETAMINOPHEN 325 MG TABLET (FP) PO PRN (02:05)
[2022-11-29] MEDS: HEPARIN NA (PORCINE) 5,000 UNITS/ML 1ML VIAL SQ SCH ×3 (05:48→21:11)
[2022-11-29] MEDS ORDERED: ONDANSETRON 4 MG/2 ML VIAL IVPUSH PRN (06:53)
[2022-11-29] MEDS ORDERED: ACETAMINOPHEN 325 MG TABLET (FP) PO PRN (09:15)
[2022-11-29] MEDS: PANTOPRAZOLE SODIUM 40 MG VIAL IVPUSH SCH (09:18)
[2022-11-29] MEDS: clonazePAM 0.5 MG TABLET PO SCH ×2 (09:18→21:11)
[2022-11-29] MEDS: ASCORBIC ACID 500 MG TABLET (FP) PO SCH ×2 (09:19→21:11)
[2022-11-29] MEDS: MULTIVITAMINS THER W-MINERALS COMBO TABLET (FP) PO SCH (09:19)
[2022-11-29] MEDS: TOLTERODINE TARTRATE LA 4 MG CAP.SR.24H (FP) PO SCH (09:19)
[2022-11-29] MEDS: OXYBUTYNIN CHLORIDE 5 MG TABLET PO SCH ×2 (09:19→21:12)
[2022-11-29] MEDS: VENLAFAXINE HCL ER 150 MG, VENLAFAXINE HCL ER 37.5 MG PO SCH (09:19)
[2022-11-29] MEDS: RIFAXIMIN 550 MG TABLET PO SCH ×2 (09:20→21:11)
[2022-11-29] MEDS: SUCRALFATE 1 GM/10 ML UNIT DOSE CUPS PO SCH ×4 (09:20→21:11)
[2022-11-29] MEDS: D5-1/2NS+10 MEQ KCL - 10 MEQ/1,000 ML INFUS.BAG IV SCH (09:20)
[2022-11-29] MEDS: oxyCODONE HCL 5 MG TABLET PO PRN ×2 (09:22→15:33)
[2022-11-29 09:53] LABS: HEMATOCRIT 34.6 % (32.4-45.2); HEMOGLOBIN 11.7 GM/dL (10.7-15.3); MCH 28.9 pg (25.7-33.7); MCHC 33.8 g/dl (32.0-36.0); MEAN CELL VOLUME 85.4 fl (80-96); MEAN PLT VOLUME 7.9 fl (7.5-11.1); PLATELET COUNT 213 10^3/uL (134-434); RBC 4.06 M/mm3 (3.60-5.2); RDW 15.5 % (11.6-15.6); WHITE BLOOD COUNT 5.2 K/mm3 (4.0-10.0)
[2022-11-29 10:19] LABS: CALCIUM 8.1 mg/dL (8.5-10.1)
[2022-11-29 10:20] LABS: BLOOD UREA NITROGEN 6.7 mg/dL (7-18)
[2022-11-29 10:23] LABS: CREATININE 0.6 mg/dL (0.55-1.3)
[2022-11-29] MEDS ORDERED: D5-LR+20 MEQ KCL - 20 MEQ/1,000 ML INFUS.BAG IV SCH (10:45)
[2022-11-29 11:46] LABS: ANISOCYTOSIS 0; HELMET CELLS 0; HOWELL-JOLLY BODIES 0; MACROCYTOSIS 0; OVALOCYTE 0; ROULEAU 0; SICKELED CELLS 0; TARGET CELLS 0; TEAR DROP CELLS 0; TOXIC GRANULATION 0
[2022-11-29 13:53] VITALS: RESP 20
[2022-11-29] MEDS: OLANZapine 10 MG TABLET PO SCH (21:11)
[2022-11-29] MEDS: ATORVASTATIN CA 20 MG TABLET (FP) PO SCH (21:11)
[2022-11-30] MEDS: SUCRALFATE 1 GM/10 ML UNIT DOSE CUPS PO SCH ×5 (06:59→21:08)
[2022-11-30] MEDS: HYDROCORTISONE 1% TOPICAL CREAM 30 GM TUBE TP SCH ×3 (06:59→21:08)
[2022-11-30] MEDS: HEPARIN NA (PORCINE) 5,000 UNITS/ML 1ML VIAL SQ SCH ×3 (06:59→21:05)
[2022-11-30] MEDS ORDERED: CLOTRIMAZOLE 1% CREAM TP SCH (10:00)
[2022-11-30 10:02] LABS: HEMATOCRIT 36.6 % (32.4-45.2); HEMOGLOBIN 12.1 GM/dL (10.7-15.3); MCH 28.2 pg (25.7-33.7); MCHC 33.1 g/dl (32.0-36.0); MEAN CELL VOLUME 85.3 fl (80-96); MEAN PLT VOLUME 8.2 fl (7.5-11.1); PLATELET COUNT 243 10^3/uL (134-434); RBC 4.29 M/mm3 (3.60-5.2); RDW 15.6 % (11.6-15.6); WHITE BLOOD COUNT 6.8 K/mm3 (4.0-10.0)
[2022-11-30 10:28] LABS: CALCIUM 8.4 mg/dL (8.5-10.1); CREATININE 0.7 mg/dL (0.55-1.3)
[2022-11-30 10:29] LABS: BLOOD UREA NITROGEN 17.3 mg/dL (7-18)
[2022-11-30] MEDS: OXYBUTYNIN CHLORIDE 5 MG TABLET PO SCH ×2 (10:33→21:08)
[2022-11-30] MEDS: PANTOPRAZOLE SODIUM 40 MG VIAL IVPUSH SCH (10:33)
[2022-11-30] MEDS: ASCORBIC ACID 500 MG TABLET (FP) PO SCH ×2 (10:33→21:06)
[2022-11-30] MEDS: RIFAXIMIN 550 MG TABLET PO SCH ×2 (10:33→21:05)
[2022-11-30] MEDS: TOLTERODINE TARTRATE LA 4 MG CAP.SR.24H (FP) PO SCH (10:33)
[2022-11-30] MEDS: MULTIVITAMINS THER W-MINERALS COMBO TABLET (FP) PO SCH (10:33)
[2022-11-30] MEDS: clonazePAM 0.5 MG TABLET PO SCH ×2 (10:33→21:06)
[2022-11-30] MEDS: CLOTRIMAZOLE 1% CREAM TP SCH ×2 (10:34→21:08)
[2022-11-30] MEDS: VENLAFAXINE HCL ER 150 MG, VENLAFAXINE HCL ER 37.5 MG PO SCH (10:34)
[2022-11-30] MEDS ORDERED: D5-LR+20 MEQ KCL - 20 MEQ/1,000 ML INFUS.BAG IV SCH (11:03)
[2022-11-30 11:11] LABS: ANISOCYTOSIS 0; HELMET CELLS 0; HOWELL-JOLLY BODIES 0; MACROCYTOSIS 0; OVALOCYTE 0; ROULEAU 0; SICKELED CELLS 0; TARGET CELLS 0; TEAR DROP CELLS 0; TOXIC GRANULATION 0
[2022-11-30] MEDS: PANTOPRAZOLE 40 MG TABLET PO SCH (12:19)
[2022-11-30] MEDS: OLANZapine 10 MG TABLET PO SCH (21:05)
[2022-11-30] MEDS: ATORVASTATIN CA 20 MG TABLET (FP) PO SCH (21:06)
[2022-11-30] MEDS: ACETAMINOPHEN 325 MG TABLET (FP) PO PRN (21:06)
[2022-12-01] MEDS ORDERED: amLODIPine BESYLATE 5 MG TABLET (FP) PO SCH (05:09)
[2022-12-01] MEDS: HEPARIN NA (PORCINE) 5,000 UNITS/ML 1ML VIAL SQ SCH ×2 (05:45→14:36)
[2022-12-01 10:07] VITALS: BP 142/72; PULSE 89; TEMP 98.9
[2022-12-01] MEDS: RIFAXIMIN 550 MG TABLET PO SCH (10:11)
[2022-12-01] MEDS: clonazePAM 0.5 MG TABLET PO SCH (10:11)
[2022-12-01] MEDS: MULTIVITAMINS THER W-MINERALS COMBO TABLET (FP) PO SCH (10:11)
[2022-12-01] MEDS: PANTOPRAZOLE 40 MG TABLET PO SCH (10:11)
[2022-12-01] MEDS: ASCORBIC ACID 500 MG TABLET (FP) PO SCH (10:11)
[2022-12-01] MEDS: CLOTRIMAZOLE 1% CREAM TP SCH (10:12)
[2022-12-01] MEDS: TOLTERODINE TARTRATE LA 4 MG CAP.SR.24H (FP) PO SCH (10:12)
[2022-12-01] MEDS: OXYBUTYNIN CHLORIDE 5 MG TABLET PO SCH (10:12)
[2022-12-01] MEDS: HYDROCORTISONE 1% TOPICAL CREAM 30 GM TUBE TP SCH (10:12)
[2022-12-01] MEDS: SUCRALFATE 1 GM/10 ML UNIT DOSE CUPS PO SCH ×2 (10:12→14:36)
[2022-12-01] MEDS: VENLAFAXINE HCL ER 150 MG, VENLAFAXINE HCL ER 37.5 MG PO SCH (10:12)
== END 2022-12-01 17:24 | disposition home or self-care (01) | DRG 392 ==
LOC: JER 14:57 → JERBED 22:21 → J6S 11-27 05:50
PROVIDERS: ADMIT Internal Medicine; ATTEND Internal Medicine
DX: R11.2 Nausea with vomiting, unspecified (principal); I50.32 Chronic diastolic (congestive) heart failure; Z68.43 Body mass index [BMI] 50.0-59.9, adult; K58.0 Irritable bowel syndrome with diarrhea; E66.01 Morbid (severe) obesity due to excess calories; E78.5 Hyperlipidemia, unspecified; I10 Essential (primary) hypertension; F31.9 Bipolar disorder, unspecified; R14.0 Abdominal distension (gaseous); R19.7 Diarrhea, unspecified; K63.89 Other specified diseases of intestine; E86.0 Dehydration; R00.0 Tachycardia, unspecified; F41.9 Anxiety disorder, unspecified
CPT/HCPCS: 0241U-QW; 36415; 74177-TC; 76775-TC; 76856-TC; 80048; 80051; 80053; 80061; 81003; 83036; 83690; 83880; 84443; 84484; 85025; 87086; 93005; 93010; 97116-GP; 97162-GP; 99285-25; J1644; Q0162; Q9967

== ENCOUNTER 2023-02-23 03:54 | Day surgery (SDC) | payer OTHER ==
[2023-02-19 16:04] VITALS: BMI 48.2
[2023-02-23] MEDS ORDERED: MIDAZOLAM HCL 2 MG/2 ML SINGLE DOSE VIAL ONE (12:22)
[2023-02-23 14:36] VITALS: BP 149/73; PULSE 86; RESP 18; TEMP 97.8
== END 2023-02-23 14:40 | disposition home or self-care (01) ==
LOC: JASU-SURG 03:54
PROVIDERS: ATTEND Urology
PROC: 0TF3XZZ Fragmentation in Right Kidney Pelvis, External Approach (ICD-10-PCS; principal; 2023-02-23 12:00)
DX: N20.0 Calculus of kidney (principal)

== ENCOUNTER 2024-05-02 05:14 | Day surgery (SDC) | payer OTHER ==
[2024-04-27 12:59] VITALS: BMI 35.9
[2024-05-02 09:30] VITALS: RESP 20
[2024-05-02] MEDS ORDERED: MIDAZOLAM HCL 2 MG/2 ML SINGLE DOSE VIAL ONE (10:28)
[2024-05-02 11:25] VITALS: TEMP 97.7
[2024-05-02 12:18] VITALS: BP 139/73; PULSE 88
== END 2024-05-02 12:30 | disposition home or self-care (01) ==
LOC: JASU-SURG 05:14
PROVIDERS: ATTEND Urology
PROC: 0TF3XZZ Fragmentation in Right Kidney Pelvis, External Approach (ICD-10-PCS; principal; 2024-05-02 10:43)
DX: N20.0 Calculus of kidney (principal)

== ENCOUNTER 2025-03-20 05:25 | Day surgery (SDC) | payer OTHER ==
[2025-03-15 16:31] VITALS: BMI 35.9
[2025-03-20] MEDS ORDERED: MIDAZOLAM HCL 2 MG/2 ML SINGLE DOSE VIAL ONE (10:51)
[2025-03-20] MEDS ORDERED: KETOROLAC TROMETHAMINE 30 MG/1 ML VIAL ONE (10:51)
[2025-03-20] MEDS ORDERED: ONDANSETRON 4 MG/2 ML VIAL ONE (10:51)
[2025-03-20 11:18] VITALS: RESP 18
[2025-03-20 13:02] VITALS: BP 147/72; PULSE 82; TEMP 97.3
== END 2025-03-20 13:30 | disposition home or self-care (01) ==
LOC: JASU-SURG 05:25
PROVIDERS: ATTEND Urology
PROC: 0TF3XZZ Fragmentation in Right Kidney Pelvis, External Approach (ICD-10-PCS; principal; 2025-03-20 11:30)
DX: N20.0 Calculus of kidney (principal)

== ENCOUNTER 2025-03-23 05:36 | Day surgery (SDC) | payer OTHER ==
[2025-03-23] MEDS ORDERED: ACETAMINOPHEN 500 MG TABLET (FP) PO PRN (08:49)
[2025-03-23 11:14] VITALS: RESP 16
[2025-03-23] MEDS: BUPIVACAINE HCL/PF 0.5% (5MG/ML) 10 ML VIAL IJ ONE ×2 (13:18)
[2025-03-23 13:32] VITALS: BP 151/76; PULSE 81; TEMP 98.4
== END 2025-03-23 14:00 | disposition home or self-care (01) ==
LOC: JASU-SURG 05:36
PROVIDERS: ATTEND Pain Medicine Pain Medicine
PROC: 3E0T33Z Introduction of Anti-inflammatory into Peripheral Nerves and Plexi, Percutaneous Approach (ICD-10-PCS; 2025-03-23)
PROC: 3E0T3BZ Introduction of Anesthetic Agent into Peripheral Nerves and Plexi, Percutaneous Approach (ICD-10-PCS; principal; 2025-03-23 11:45)
DX: M47.812 Spondylosis without myelopathy or radiculopathy, cervical region (principal)
CPT/HCPCS: 76000-TC-FY